=== PATIENT | male | born 1990 | race African-American/Black ===

== ENCOUNTER 2019-07-29 19:00 | Inpatient (IN) | payer OTHER ==
[2019-07-29] MEDS ORDERED: SODIUM CHLORIDE 0.9% 1,000 ML IV STA (19:28)
[2019-07-29 20:05] LABS: Anisocytosis Slight; Hypochromasia Marked; MCH 12.7 pg (25.0-35.0); MCHC 23.2 g/dL (31.0-37.0); MCV 54.9 fL (80.0-100.0); Mean Platelet Volume 10.3; Microcytosis Marked; Platelet Count 469 k/uL (150-450); RBC 4.01 m/uL (4.30-5.90); RDW 19.6 % (11.5-15.5)
[2019-07-29 20:07] LABS: ALT 9 U/L (4-49); AST 25 U/L (17-59); African American GFR (CKD) >90 (>60 ml/min/1.73 sqM); Albumin 4.2 g/dL (3.5-5.0); Alkaline Phosphatase 99 U/L (38-126); Amylase 36 U/L (30-110); Anion Gap 9 mmol/L; Blood Urea Nitrogen 17 mg/dL (9-20); Calcium 8.9 mg/dL (8.4-10.2); Carbon Dioxide 25 mmol/L (22-30); Chloride 100 mmol/L (98-107); Glucose 93 mg/dL (74-99); Non-African American GFR(CKD) >90 (>60 ml/min/1.73 sqM); Potassium 4.3 mmol/L (3.5-5.1); Sodium 134 mmol/L (137-145); Total Bilirubin 0.3 mg/dL (0.2-1.3); Total Protein 7.8 g/dL (6.3-8.2)
[2019-07-29 20:08] LABS: HGB 5.1 gm/dL (13.0-17.5)
[2019-07-29 20:17] LABS: Appearance,Urine Cloudy (Clear); Bilirubin,Urine Negative (Negative); Blood,Urine Large (Negative); Budding Yeast,Urine Many /hpf; Color,Urine Yellow; Glucose,Urine (UA) Negative (Negative); Ketones,Urine Negative (Negative); Leukocyte Esterase,Urine Large (Negative); Mucus,Urine Rare /hpf; Nitrite,Urine Negative (Negative); Protein,Urine 1+ (Negative); RBC,Urine >182 /hpf (0-5); Specific Gravity,Urine 1.019 (1.001-1.035); Urobilinogen,Urine <2.0 mg/dL (<2.0); WBC,Urine >182 /hpf (0-5)
--- NOTE | 2019-07-29 20:17 | CT ---
EXAMINATION TYPE: CT abdomen pelvis w con DATE OF EXAM: 07/29/2019 COMPARISON: None HISTORY: Right sided abdominal pain and urinary frequency. CT DLP: 701.5 mGycm Automated exposure control for dose reduction was used. CONTRAST: Performed with IV Contrast, patient injected with 100 mL of Isovue 300. Images were obtained from the diaphragm to the floor the pelvis. Lung bases are clear. There is no pleural effusion. Heart appears normal. Liver appears normal. Gallb ladder appears normal. Bile ducts are not dilated. Stomach appears intact. There is no pancreatic mas s. Spleen is enlarged and measures 13.5 cm. There is no adrenal mass. Kidneys show satisfactory contrast opacification. There is no hydronephrosi s. Ureters are not dilated. There is no retroperitoneal adenopathy. There is no inguinal hernia. Ther e is no free fluid in the pelvis. There is minimal urinary bladder wall thickening. There is a large right lower quadrant mass with mixed attenuation in the peritoneal cavity that measures 10.3 x 6.4 x 9 cm. The cecum is not well defined. Appendix is not well defined. There is no sign of a bowel obstru ction. Small bowel is not dilated. There is normal appearing gas and fecal material in the transverse colon and left colon and sigmoid colon. I see no free air in the peritoneal cavity. The complex right lower quadrant mass contains air and th is could be within inflamed bowel loops. Lumbar vertebra have normal alignment. Posterior elements are intact. Disc spaces are normal. Bony pe lvis is intact. IMPRESSION: Large inflammatory-appearing complex mass in the right lower quadrant. The mass probably contains inf lamed loops of distal ileum and the cecum. Crohn's disease is possible. Appendicitis with rupture and abscess also not excluded. Mild splenomegaly.
[2019-07-29 20:27] LABS: Anisocytosis (M) Present; Basophils # (M) 0.19 k/uL (0-0.2); Eosinophils # (M) 0.09 k/uL (0-0.7); Lymphocytes # (M) 2.07 k/uL (1.0-4.8); Monocytes # (M) 0.28 k/uL (0-1.0); Neutrophils # (M) 6.86 k/uL (1.3-7.7); Neutrophils % (M) 73 %; Nucleated Red Blood Cells 1 /100 WBC (0-0); Poikilocytosis (M) Present; Polychromasia Present; Total Cells Counted 200; WBC 9.4 k/uL (3.8-10.6)
[2019-07-29 20:28] LABS: Hypochromasia (M) Present; Ovalocytes Present; Tear Drop Cells Present
--- NOTE | 2019-07-29 20:34 | ED ---
Abdominal Pain HPI - General Source: patient Mode of arrival: ambulatory Limitations: no limitations <Milagros Sauceda - Last Filed: 07/29/19 21:30> <Kyree Aceves - Last Filed: 07/29/19 21:49> - General Chief Complaint: Abdominal Pain Stated Complaint: UTI/revisit Time Seen by Provider: 07/29/19 19:13 - History of Present Illness Initial Comments: Patient is a 29-year-old male presenting to the emergency Department with complaints of abdominal pain and a possible UTI. Patient states he was treated for a UTI approximately 3-4 weeks ago and finished a 10 day course of Bactrim. Patient states he was also tested for STDs which were all negative. He has not been sexually active in 2 months. Patient states he was having urinary frequency as well as penile discharge at that time. Patient states the symptoms have improved but he continues to have right lower quadrant pain as well as urinary frequency, urgency and penile discharge. Patient denies having a fever, chills, nausea, vomiting. He states his pain has been controlled and is minimal at this time. Patient denies any history of abdominal surgeries. He takes no medications. He states he has been trying to eat a very clean diet, no sugar or pop, junk foods. He states this is not improving his symptoms. Patient denies having chest pain, shortness of breath, cough. He has no other complaints at this time. Upon arrival to the ER, patient is afebrile, tachycardia at 106, rest of vitals normal. (Milagros Sauceda) - Related Data Home Medications Medication Instructions Recorded Confirmed No Known Home Medications 07/29/19 07/29/19 Allergies Allergy/AdvReac Type Severity Reaction Status Date / Time No Known Allergies Allergy Verified 07/29/19 20:49 Review of Systems ROS Other: All systems not noted in ROS Statement are negative. <Milagros Sauceda - Last Filed: 07/29/19 21:30> ROS Other: All systems not noted in ROS Statement are negative. <Kyree Aceves - Last Filed: 07/29/19 21:49> ROS Statement: Those systems with pertinent positive or pertinent negative responses have been documented in the HPI. Past Medical History Past Medical History: No Reported History History of Any Multi-Drug Resistant Organisms: None Reported Past Surgical History: No Surgical Hx Reported Past Psychological History: No Psychological Hx Reported Smoking Status: Never smoker Past Alcohol Use History: None Reported Past Drug Use History: Marijuana <Milagros Sauceda - Last Filed: 07/29/19 21:30> General Exam Limitations: no limitations Rectal exam: Present: normal inspection, normal rectal tone, heme (-) stool <Milagros Sauceda - Last Filed: 07/29/19 21:30> - General Exam Comments Initial Comments: GENERAL: Patient looks pale, diaphoretic, in no acute distress. HEAD: Atraumatic, normocephalic. EYES: Pupils equal round and reactive to light, extraocular movements intact, sclera anicteric, conjunctiva are normal. ENT: TMs normal, nares patent, oropharynx clear without exudates. Moist mucous membranes. NECK: Normal range of motion, supple without lymphadenopathy or JVD. LUNGS: Breath sounds clear to auscultation bilaterally and equal. No wheezes rales or rhonchi. HEART: Tachycardia rate and rhythm without murmurs, rubs or gallops. ABDOMEN: Tenderness in the right lower quadrant of the abdomen. There is a hard mass felt in the same area which extends down towards the right groin area. No other significant pain. Normoactive bowel sounds. No guarding, no rebound. : Normal external exam. EXTREMITIES: Normal range of motion, no pitting or edema. No clubbing or cyanosis. NEUROLOGICAL: Normal speech, normal gait. PSYCH: Normal mood, normal affect. SKIN: Warm, Dry, normal turgor, no rashes or lesions noted. (Becky Saucedashannon Ladd) Course <Kyree Aceves - Last Filed: 07/29/19 21:49> Vital Signs 07/29/19 07/29/19 07/29/19 19:07 20:19 20:57 Temperature 98.1 F 98.6 F 98.7 F Pulse Rate 106 H 82 95 Respiratory 18 15 14 Rate Blood Pressure 124/73 106/65 118/53 O2 Sat by Pulse 100 100 100 Oximetry - Reevaluation(s) Reevaluation #1: 07/29/19 21:23 PA supervision: I personally did evaluate this case he did present with complaints of abdominal pain is appear to have a mass in the pelvis lower abdomen area see the CAT scan. He was anemic. Patient will be admitted to Dr. Marcial (Kyree Aceves) Reevaluation #2: 07/29/19 21:49 Due to the patient's hemoglobin dropped from 5.1-4.7 the patient will be admitted to ICU for observation while getting transfused. I did discuss case with Dr. Biswas. (Kyree Aceves) Medical Decision Making - Lab Data Result diagrams: 07/29/19 20:34 07/29/19 19:46 <Milagros Sauceda - Last Filed: 07/29/19 21:30> - Lab Data Result diagrams: 07/29/19 20:34 07/29/19 19:46 <Kyree Aceves - Last Filed: 07/29/19 21:49> - Medical Decision Making Patient is a 29-year-old male here for right lower quadrant pain as well as pain about discharge, dysuria, frequency x 3 weeks. He completed a course of bactrim 3 weeks ago. Patient arrived tachycardia, afebrile. On exam patient is pale, diaphoretic, right lower quadrant pain with a hard mass felt in same area, minimal pain. Lab work revealed a hemoglobin of 5.1, repeat was 4.7. (No previous to compare.) White count is normal, CMP is normal, lactic acid 0.7. Urine shows significant amounts of blood and WBC clumps. Stool occult is negative. CT of the abdomen shows a large inflammatory, complex mass in the right lower quadrant. Mass probably contains inflamed loops of distal ileum and cecum. Crohn's disease is possible as well as possible appendicitis with rupture and abscess. Patient will be transfused with 2 units of blood as well as started on Rocephin. Blood cultures are pending. Patient will be admitted under Dr. Swartz who accepts the patient. Case discussed with Dr. Aceves. (Milagros Sauceda) - Lab Data Lab Results 07/29/19 07/29/19 07/29/19 Range/Units 19:46 19:46 19:46 WBC 9.4 (3.8-10.6) k/uL RBC 4.01 L (4.30-5.90) m/uL Hgb 5.1 L* (13.0-17.5) gm/dL Hct 22.0 L (39.0-53.0) % MCV 54.9 L (80.0-100.0) fL MCH 12.7 L (25.0-35.0) pg MCHC 23.2 L (31.0-37.0) g/dL RDW 19.6 H (11.5-15.5) % Plt Count 469 H (150-450) k/uL Neutrophils % % Neutrophils % (Manual) 73 % Lymphocytes % % Lymphocytes % (Manual) 22 % Monocytes % % Monocytes % (Manual) 3 % Eosinophils % % Eosinophils % (Manual) 1 % Basophils % % Basophils % (Manual) 2 % Neutrophils # (1.3-7.7) k/uL Neutrophils # (Manual) 6.86 (1.3-7.7) k/uL Lymphocytes # (1.0-4.8) k/uL Lymphocytes # (Manual) 2.07 (1.0-4.8) k/uL Monocytes # (0-1.0) k/uL Monocytes # (Manual) 0.28 (0-1.0) k/uL Eosinophils # (0-0.7) k/uL Eosinophils # (Manual) 0.09 (0-0.7) k/uL Basophils # (0-0.2) k/uL Basophils # (Manual) 0.19 (0-0.2) k/uL Nucleated RBCs 1 H (0-0) /100 WBC Manual Slide Review Performed Polychromasia Present Hypochromasia Marked Hypochromasia (manual) Present Poikilocytosis (manual Present Anisocytosis Slight Anisocytosis (manual) Present Microcytosis Marked Tear Drop Cells Present Ovalocytes Present Sodium 134 L (137-145) mmol/L Potassium 4.3 (3.5-5.1) mmol/L Chloride 100 (98-107) mmol/L Carbon Dioxide 25 (22-30) mmol/L Anion Gap 9 mmol/L BUN 17 (9-20) mg/dL Creatinine 0.90 (0.66-1.25) mg/dL Est GFR (CKD-EPI)AfAm >90 (>60 ml/min/1.73 sqM) Est GFR (CKD-EPI)NonAf >90 (>60 ml/min/1.73 sqM) Glucose 93 (74-99) mg/dL Plasma Lactic Acid Mahesh (0.7-2.0) mmol/L Calcium 8.9 (8.4-10.2) mg/dL Total Bilirubin 0.3 (0.2-1.3) mg/dL AST 25 (17-59) U/L ALT 9 (4-49) U/L Alkaline Phosphatase 99 (38-126) U/L Total Protein 7.8 (6.3-8.2) g/dL Albumin 4.2 (3.5-5.0) g/dL Amylase 36 (30-110) U/L Lipase 40 (23-300) U/L Urine Color Yellow Urine Appearance Cloudy (Clear) Urine pH 6.0 (5.0-8.0) Ur Specific [place] 1.019 (1.001-1.035) Urine Protein 1+ H (Negative) Urine Glucose (UA) Negative (Negative) Urine Ketones Negative (Negative) Urine Blood Large H (Negative) Urine Nitrite Negative (Negative) Urine Bilirubin Negative (Negative) Urine Urobilinogen <2.0 (<2.0) mg/dL Ur Leukocyte Esterase Large H (Negative) Urine RBC >182 H (0-5) /hpf Urine WBC >182 H (0-5) /hpf Urine WBC Clumps Many H (None) /hpf Urine Mucus Rare H (None) /hpf Urine Yeast (Budding) Many H (None) /hpf Stool Occult Blood (Negative) Blood Type Blood Type Confirm Blood Type Recheck Bld Type Recheck Status Antibody Screen Crossmatch Spec Expiration Date 07/29/19 07/29/19 07/29/19 Range/Units 19:46 19:46 20:34 WBC (3.8-10.6) k/uL RBC (4.30-5.90) m/uL Hgb (13.0-17.5) gm/dL Hct (39.0-53.0) % MCV (80.0-100.0) fL MCH (25.0-35.0) pg MCHC (31.0-37.0) g/dL RDW (11.5-15.5) % Plt Count (150-450) k/uL Neutrophils % % Neutrophils % (Manual) % Lymphocytes % % Lymphocytes % (Manual) % Monocytes % % Monocytes % (Manual) % Eosinophils % % Eosinophils % (Manual) % Basophils % % Basophils % (Manual) % Neutrophils # (1.3-7.7) k/uL Neutrophils # (Manual) (1.3-7.7) k/uL Lymphocytes # (1.0-4.8) k/uL Lymphocytes # (Manual) (1.0-4.8) k/uL Monocytes # (0-1.0) k/uL Monocytes # (Manual) (0-1.0) k/uL Eosinophils # (0-0.7) k/uL Eosinophils # (Manual) (0-0.7) k/uL Basophils # (0-0.2) k/uL Basophils # (Manual) (0-0.2) k/uL Nucleated RBCs (0-0) /100 WBC Manual Slide Review Polychromasia Hypochromasia Hypochromasia (manual) Poikilocytosis (manual Anisocytosis Anisocytosis (manual) Microcytosis Tear Drop Cells Ovalocytes Sodium (137-145) mmol/L Potassium (3.5-5.1) mmol/L Chloride (98-107) mmol/L Carbon Dioxide (22-30) mmol/L Anion Gap mmol/L BUN (9-20) mg/dL Creatinine (0.66-1.25) mg/dL Est GFR (CKD-EPI)AfAm (>60 ml/min/1.73 sqM) Est GFR (CKD-EPI)NonAf (>60 ml/min/1.73 sqM) Glucose (74-99) mg/dL Plasma Lactic Acid Mahesh 0.7 (0.7-2.0) mmol/L Calcium (8.4-10.2) mg/dL Total Bilirubin (0.2-1.3) mg/dL AST (17-59) U/L ALT (4-49) U/L Alkaline Phosphatase (38-126) U/L Total Protein (6.3-8.2) g/dL Albumin (3.5-5.0) g/dL Amylase (30-110) U/L Lipase (23-300) U/L Urine Color Urine Appearance (Clear) Urine pH (5.0-8.0) Ur Specific [place] (1.001-1.035) Urine Protein (Negative) Urine Glucose (UA) (Negative) Urine Ketones (Negative) Urine Blood (Negative) Urine Nitrite (Negative) Urine Bilirubin (Negative) Urine Urobilinogen (<2.0) mg/dL Ur Leukocyte Esterase (Negative) Urine RBC (0-5) /hpf Urine WBC (0-5) /hpf Urine WBC Clumps (None) /hpf Urine Mucus (None) /hpf Urine Yeast (Budding) (None) /hpf Stool Occult Blood (Negative) Blood Type O Positive Blood Type Confirm O Positive Blood Type Recheck No Previous Record Bld Type Recheck Status CABO Indicated Antibody Screen NEGATIVE Crossmatch See Detail Spec Expiration Date 08/01/2019 - 233307/29/19 07/29/19 Range/Units 20:34 20:48 WBC 8.2 (3.8-10.6) k/uL RBC 3.73 L (4.30-5.90) m/uL Hgb 4.7 L* (13.0-17.5) gm/dL Hct 20.8 L (39.0-53.0) % MCV 55.6 L (80.0-100.0) fL MCH 12.5 L (25.0-35.0) pg MCHC 22.6 L (31.0-37.0) g/dL RDW 19.6 H (11.5-15.5) % Plt Count 373 (150-450) k/uL Neutrophils % 67 % Neutrophils % (Manual) % Lymphocytes % 24 % Lymphocytes % (Manual) % Monocytes % 5 % Monocytes % (Manual) % Eosinophils % 1 % Eosinophils % (Manual) % Basophils % 1 % Basophils % (Manual) % Neutrophils # 5.5 (1.3-7.7) k/uL Neutrophils # (Manual) (1.3-7.7) k/uL Lymphocytes # 1.9 (1.0-4.8) k/uL Lymphocytes # (Manual) (1.0-4.8) k/uL Monocytes # 0.4 (0-1.0) k/uL Monocytes # (Manual) (0-1.0) k/uL Eosinophils # 0.1 (0-0.7) k/uL Eosinophils # (Manual) (0-0.7) k/uL Basophils # 0.1 (0-0.2) k/uL Basophils # (Manual) (0-0.2) k/uL Nucleated RBCs (0-0) /100 WBC Manual Slide Review Polychromasia Hypochromasia Marked Hypochromasia (manual) Poikilocytosis (manual Anisocytosis Slight Anisocytosis (manual) Microcytosis Marked Tear Drop Cells Ovalocytes Sodium (137-145) mmol/L Potassium (3.5-5.1) mmol/L Chloride (98-107) mmol/L Carbon Dioxide (22-30) mmol/L Anion Gap mmol/L BUN (9-20) mg/dL Creatinine (0.66-1.25) mg/dL Est GFR (CKD-EPI)AfAm (>60 ml/min/1.73 sqM) Est GFR (CKD-EPI)NonAf (>60 ml/min/1.73 sqM) Glucose (74-99) mg/dL Plasma Lactic Acid Mahesh (0.7-2.0) mmol/L Calcium (8.4-10.2) mg/dL Total Bilirubin (0.2-1.3) mg/dL AST (17-59) U/L ALT (4-49) U/L Alkaline Phosphatase (38-126) U/L Total Protein (6.3-8.2) g/dL Albumin (3.5-5.0) g/dL Amylase (30-110) U/L Lipase (23-300) U/L Urine Color Urine Appearance (Clear) Urine pH (5.0-8.0) Ur Specific [place] (1.001-1.035) Urine Protein (Negative) Urine Glucose (UA) (Negative) Urine Ketones (Negative) Urine Blood (Negative) Urine Nitrite (Negative) Urine Bilirubin (Negative) Urine Urobilinogen (<2.0) mg/dL Ur Leukocyte Esterase (Negative) Urine RBC (0-5) /hpf Urine WBC (0-5) /hpf Urine WBC Clumps (None) /hpf Urine Mucus (None) /hpf Urine Yeast (Budding) (None) /hpf Stool Occult Blood Negative (Negative) Blood Type Blood Type Confirm Blood Type Recheck Bld Type Recheck Status Antibody Screen Crossmatch Spec Expiration Date Disposition Is patient prescribed a controlled substance at d/c from ED?: No Decision Date: 07/29/19 Decision Time: 21:09 <Milagros Sauceda - Last Filed: 07/29/19 21:30> <Kyree Aceves - Last Filed: 07/29/19 21:49> Clinical Impression: Acute anemia, Right lower quadrant abdominal mass, UTI (urinary tract infection) Disposition: ADMITTED IP TO THIS HOSP Condition: Good Referrals: None,Stated [Primary Care Provider] - 1-2 days
[2019-07-29 20:54] LABS: Anisocytosis Slight; Basophils # (A) 0.1 k/uL (0-0.2); Basophils % (A) 1 %; Eosinophils # (A) 0.1 k/uL (0-0.7); Eosinophils % (A) 1 %; HCT 20.8 % (39.0-53.0); Hypochromasia Marked; Lymphocytes # (A) 1.9 k/uL (1.0-4.8); Lymphocytes % (A) 24 %; MCH 12.5 pg (25.0-35.0); MCHC 22.6 g/dL (31.0-37.0); MCV 55.6 fL (80.0-100.0); Mean Platelet Volume 8.1; Microcytosis Marked; Monocytes # (A) 0.4 k/uL (0-1.0); Monocytes % (A) 5 %; Neutrophils # (A) 5.5 k/uL (1.3-7.7); Neutrophils % (A) 67 %; Platelet Count 373 k/uL (150-450); RBC 3.73 m/uL (4.30-5.90); RDW 19.6 % (11.5-15.5); WBC 8.2 k/uL (3.8-10.6)
[2019-07-29 21:01] LABS: HGB 4.7 gm/dL (13.0-17.5)
[2019-07-29] MEDS ORDERED: NALOXONE 0.4 MG/ML 1 ML VIAL IV PRN (21:05)
[2019-07-29] MEDS ORDERED: ONDANSETRON 4 MG/2 ML VIAL IVP PRN (21:05)
[2019-07-29] MEDS ORDERED: ACETAMINOPHEN TAB 325 MG TAB PO PRN (21:05)
[2019-07-29] MEDS: SODIUM CHLORIDE 0.9% 1,000 ML IV SCH (22:54)
[2019-07-29 23:38] LABS: Glucose,Whole Blood 120 mg/dL (75-99)
[2019-07-30 06:00] LABS: Anisocytosis Marked; Basophils % (A) 1 %; Eosinophils # (A) 0.1 k/uL (0-0.7); Eosinophils % (A) 1 %; HCT 26.3 % (39.0-53.0); Hypochromasia Marked; Lymphocytes # (A) 1.4 k/uL (1.0-4.8); Lymphocytes % (A) 19 %; MCH 15.8 pg (25.0-35.0); MCHC 25.9 g/dL (31.0-37.0); Mean Platelet Volume 10.1; Microcytosis Marked; Monocytes # (A) 0.3 k/uL (0-1.0); Monocytes % (A) 4 %; Neutrophils # (A) 5.2 k/uL (1.3-7.7); Neutrophils % (A) 73 %; Platelet Count 406 k/uL (150-450); Poikilocytosis Marked; RBC 4.31 m/uL (4.30-5.90); WBC 7.2 k/uL (3.8-10.6)
[2019-07-30 06:05] LABS: HGB 6.8 gm/dL (13.0-17.5)
[2019-07-30 06:06] LABS: RDW 26.9 % (11.5-15.5)
[2019-07-30 06:17] LABS: African American GFR (CKD) >90 (>60 ml/min/1.73 sqM); Anion Gap 7 mmol/L; Blood Urea Nitrogen 13 mg/dL (9-20); Calcium 8.6 mg/dL (8.4-10.2); Carbon Dioxide 23 mmol/L (22-30); Chloride 105 mmol/L (98-107); Glucose 86 mg/dL (74-99); Non-African American GFR(CKD) >90 (>60 ml/min/1.73 sqM); Potassium 4.3 mmol/L (3.5-5.1); Sodium 135 mmol/L (137-145)
[2019-07-30] MEDS ORDERED: SODIUM FERRIC GLUCONAT-SUCROSE 125 MG in SODIUM CHLORIDE 0.9% 100 ML IVPB SCH (09:00)
--- NOTE | 2019-07-30 10:18 | P.CNPUL ---
History of Present Illness Consult date: 07/30/19 Chief complaint: Abdominal pain and severe anemia History of present illness: A 29-year-old -[place] male patient who came into the hospital yesterday because of abdominal pain and abnormal uterine production. The patient has been having abdominal pain since May 2019. He had a vague right lower quadrant pain without any fever or nausea vomiting or emesis. His pain is been fluctuating in severity yet never got to the point where it was severe. He had sick medical attention and seen different clinics where he was suspected to have urinary tract infection he was given Bactrim and on another occasion he was suspected to have STD yet the workup had been negative. The patient reports some mucousy white material a is on and off along with some occasional blood. Denies having any melanotic stools. No bright red blood per rectum. No urination of any gas or bubbles in the urine. No flank pain. No fever. No history of any inflammatory bowel disease. No previous history of appendicitis. The patient came into the emergency department he was quite weak. His hemoglobin was down to 4.7. He received a total of 2 units of packed RBC and his hemoglobin is up to 6.8. His white cell count is at 7.2. The patient has latent count of 469. His UA is abnormal with elevated white cell counts and elevated RBC. Culture is still pending for now. Occult stool is negative for blood. CAT scan of the abdomen was done and the patient was found to have a large right lower quadrant mass with mixed attenuation in the peritoneal cavity and the areas measuring around 10.3 x 6.4 x 9 cm in size. The cecum was not well visualized. Appendix is not well defined. There is no signs of any bowel obstruction. The right lower quadrant mass contains air and this could include also inflamed bowel. Note that this was done with IV contrast only. On examination, the patient has a palpable mass in the right lower quadrant. The a rajiv is slightly tender on direct palpation. The patient likely has an inflamed bowel loop of the distal ileum or the cecum or the appendix that has ruptured and has formed an abscess with possible colovesicular fistula. He does have some mild splenomegaly. He is alert and awake and following commands and answering questions. Is a nonsmoker. 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 Otherwise his been a healthy 29-year-old Marleen male patient in general surgery consultation has been obtained. Review of Systems Constitutional: Reports fatigue, Reports weakness Eyes: denies as per HPI, denies blurred vision, denies bulging eye, denies d ecreased vision, denies diplopia, denies discharge, denies dry eye, denies irritation, denies itching, denies pain, denies photophobia, denies loss of peripheral vision, denies loss of vision, denies tunnel vision/blind spots Ears: deny: decreased hearing, ear discharge, earache, tinnitus Ears, nose, mouth and throat: Reports as per HPI Breasts: absent: as per HPI, gynecomastia Cardiovascular: Reports as per HPI Respiratory: Reports as per HPI Gastrointestinal: Reports abdominal pain Genitourinary: Reports as per HPI (Change in the color of the urine where he was producing mucoid possibly purulent urine), Reports hematuria Musculoskeletal: Reports as per HPI Musculoskeletal: absent: ankle pain, ankle stiffness, ankle swelling Integumentary: Reports as per HPI Neurological: Reports as per HPI Psychiatric: Reports as per HPI Endocrine: Reports as per HPI Hematologic/Lymphatic: Reports as per HPI Allergic/Immunologic: Reports as per HPI Past Medical History Past Medical History: No Reported History History of Any Multi-Drug Resistant Organisms: None Reported Past Surgical History: No Surgical Hx Reported Past Psychological History: No Psychological Hx Reported Smoking Status: Never smoker Past Alcohol Use History: None Reported Past Drug Use History: Marijuana Medications and Allergies Home Medications Medication Instructions Recorded Confirmed Type No Known Home Medications 07/29/19 07/29/19 History Allergies Allergy/AdvReac Type Severity Reaction Status Date / Time No Known Allergies Allergy Verified 07/29/19 20:49 Physical Exam Vitals: Vital Signs Temp Pulse Pulse Resp BP BP Pulse Ox 07/30/19 10:00 73 17 113/75 100 07/30/19 09:00 84 12 117/77 100 07/30/19 08:00 98.6 F 84 23 117/77 100 07/30/19 07:00 75 16 106/64 07/30/19 06:00 84 17 111/62 07/30/19 05:00 78 12 106/64 07/30/19 04:38 98.3 F 80 80 H 114/66 07/30/19 04:00 98.3 F 77 22 107/70 100 07/30/19 03:30 73 17 111/59 07/30/19 03:00 81 19 105/62 07/30/19 02:30 98.1 F 85 12 109/68 100 07/30/19 02:10 80 16 111/67 07/30/19 02:00 98.5 F 87 16 116/73 100 07/30/19 01:50 98.3 F 78 11 L 116/73 100 07/30/19 01:45 98.3 F 84 16 117/75 100 07/30/19 01:31 98.3 F 87 18 117/75 100 07/29/19 23:28 98.3 F 86 17 126/71 100 07/29/19 23:15 98.5 F 90 15 118/70 07/29/19 22:58 98.5 F 88 14 123/70 07/29/19 22:48 98.6 F 98 14 127/72 07/29/19 22:46 98.6 F 98 14 126/79 100 07/29/19 22:01 98.3 F 88 14 126/76 100 07/29/19 20:57 98.7 F 95 14 118/53 100 07/29/19 20:19 98.6 F 82 15 106/65 100 07/29/19 19:07 98.1 F 106 H 18 124/73 100 Intake and Output 07/29/19 07/30/19 07/30/19 22:59 06:59 14:59 Intake Total 0 1845 225 Output Total 400 300 Balance 0 1445 -75 Intake: Intake, IV Titration 525 225 Amount Sodium Chloride 0.9% 1, 525 225 000 ml @ 75 mls/hr IV . [id number] [facility] Rx#:[id number] Blood Product 0 1320 As-1 Unit 0 310 [id number] Rc As-1 Unit 310 [id number] Output: Urine 400 300 Other: Voiding Method Toilet Urinal Urinal Weight 73.482 kg 76 kg The patient appeared well nourished and normally developed. Vital signs as docu mented. Head exam is unremarkable. No scleral icterus or corneal arcus noted. Neck is without jugular venous distension, thyromegaly, or carotid bruits. Carotid upstrokes are brisk bilaterally. Lungs are clear to auscultation and percussion. Cardiac exam reveals the PMI to be normally sized and situated. Rhythm is regular. First and second heart sounds normal. No murmurs, rubs or gallops. Abdominal exam reveals a palpable masslike collection in the right lower quadrant area. The area is very well-defined. There is direct tenderness. No rebound tenderness. No guarding. No peritoneal signs. No ascites. No organomegaly. Bowel sounds are hypoactive at the present.. Extremities are nonedematous and both femoral and pedal pulses are normal.Examination of the skin revealed no evidence of significant rashes, suspicious appearing nevi or other concerning lesions. Neurologically the patie nt is awake and alert and there is no focal neurological deficits. Results - Laboratory Findings CBC and BMP: 07/30/19 05:32 07/30/19 05:32 Abnormal lab findings: Abnormal Labs 07/29/19 07/29/19 07/29/19 19:46 19:46 19:46 RBC 4.01 L Hgb 5.1 L* Hct 22.0 L MCV 54.9 L MCH 12.7 L MCHC 23.2 L RDW 19.6 H Plt Count 469 H Nucleated RBCs 1 H Sodium 134 L POC Glucose (mg/dL) Urine Protein 1+ H Urine Blood Large H Ur Leukocyte Esterase Large H Urine RBC >182 H Urine WBC >182 H Urine WBC Clumps Many H Urine Mucus Rare H Urine Yeast (Budding) Many H Crossmatch 07/29/19 07/29/19 07/29/19 20:34 20:34 23:36 RBC 3.73 L Hgb 4.7 L* Hct 20.8 L MCV 55.6 L MCH 12.5 L MCHC 22.6 L RDW 19.6 H Plt Count Nucleated RBCs Sodium POC Glucose (mg/dL) 120 H Urine Protein Urine Blood Ur Leukocyte Esterase Urine RBC Urine WBC Urine WBC Clumps Urine Mucus Urine Yeast (Budding) Crossmatch See Detail 07/30/19 07/30/19 05:32 05:32 RBC Hgb 6.8 L* D Hct 26.3 L MCV 61.0 L D MCH 15.8 L MCHC 25.9 L RDW 26.9 H Plt Count Nucleated RBCs Sodium 135 L POC Glucose (mg/dL) Urine Protein Urine Blood Ur Leukocyte Esterase Urine RBC Urine WBC Urine WBC Clumps Urine Mucus Urine Yeast (Budding) Crossmatch - Diagnostic Findings Chest x-ray: image reviewed Assessment and Plan Plan: 1 large right lower quadrant inflammatory complex mass with secondary abdominal pain and abnormal urine characteristics including urination of purulent material and some occasional hematuria. As such, I am considering the possibility of a ruptured appendicitis with abscess formation. Inflammatory bowel disease with secondary complications felt to be less likely. Nevertheless, there is a high concern of a colovesicular fistula based on the above-mentioned presentation. 2 abnormal urinalysis and urination with urine characteristics. Consider colovesicular fistula. 3 abdominal pain secondary to above 4 severe anemia received a total of 2 units of packed RBC, likely subacute versus chronic. Hemoglobin is up to 6.8. The patient received a total of 2 un its of packed RBC. 5 reactive thrombocytosis Plan Check blood cultures Check urine cultures Put the patient IV Zosyn General surgery consultation Neurology consultation May need a repeat CAT scan, contrast enhanced looking for any fistulization Received a total of 2 units of packed RBC and will give another unit Check iron studies and replace with IV iron accordingly Patient is hemodynamically stable. Continue the normal saline at the rate of 75 mL an hour. We'll keep the patient ICU for 24 hours for monitoring. Awaiting consultation with above-mentioned specialties.
--- NOTE | 2019-07-30 10:23 | P.GSCN ---
History of Present Illness Consult date: 07/30/19 Reason for Consult: UTI Requesting physician: Joel Biswas History of present illness: The patient is a 29-year-old -[place] male with an unremarkable urologic history. Beginning in May,, he began to experience urinary frequency and urgency. He feels that he is unable to empty his bladder. He was treated with Bactrim, and his symptoms improved. He denies dysuria. He does report purulent urethral drainage, as well as hematuria following activity. He believes he may have had a single episode of pneumaturia. He denies fecaluria. Review of Systems - Constitutional Denies chills, Denies fever - Cardiovascular Denies chest pain - Respiratory Denies dyspnea - Gastrointestinal Denies nausea, Denies vomiting - Genitourinary Reports urinary frequency Past Medical History Past Medical History: No Reported History History of Any Multi-Drug Resistant Organisms: None Reported Past Surgical History: No Surgical Hx Reported Past Psychological History: No Psychological Hx Reported Smoking Status: Never smoker Past Alcohol Use History: None Reported Past Drug Use History: Marijuana Medications and Allergies Home Medications Medication Instructions Recorded Confirmed Type No Known Home Medications 07/29/19 07/29/19 History Allergies Allergy/AdvReac Type Severity Reaction Status Date / Time No Known Allergies Allergy Verified 07/29/19 20:49 Surgical - Exam Vital Signs Temp Pulse Resp BP Pulse Ox 98.1 F 106 H 18 124/73 100 07/29/19 19:07 07/29/19 19:07 07/29/19 19:07 07/29/19 19:07 07/29/19 19:07 - General well developed, well nourished, no distress - Respiratory normal respiratory effort - Abdomen Soft, flat, non-distended. A right lower quadrant mass is palpable, which is mildly tender to palpation. - Genitourinary normal penis with no external lesions, testicles non-tender - Psychiatric oriented to time, oriented to person, oriented to place, speech is normal, memory intact Results - Labs 07/30/19 05:32 07/30/19 05:32 Abnormal Lab Results - Last 24 Hours (Table) 07/29/19 07/29/19 07/29/19 Range/Units 19:46 19:46 19:46 RBC 4.01 L (4.30-5.90) m/uL Hgb 5.1 L* (13.0-17.5) gm/dL Hct 22.0 L (39.0-53.0) % MCV 54.9 L (80.0-100.0) fL MCH 12.7 L (25.0-35.0) pg MCHC 23.2 L (31.0-37.0) g/dL RDW 19.6 H (11.5-15.5) % Plt Count 469 H (150-450) k/uL Nucleated RBCs 1 H (0-0) /100 WBC Sodium 134 L (137-145) mmol/L POC Glucose (mg/dL) (75-99) mg/dL Urine Protein 1+ H (Negative) Urine Blood Large H (Negative) Ur Leukocyte Esterase Large H (Negative) Urine RBC >182 H (0-5) /hpf Urine WBC >182 H (0-5) /hpf Urine WBC Clumps Many H (None) /hpf Urine Mucus Rare H (None) /hpf Urine Yeast (Budding) Many H (None) /hpf Crossmatch 07/29/19 07/29/19 07/29/19 Range/Units 20:34 20:34 23:36 RBC 3.73 L (4.30-5.90) m/uL Hgb 4.7 L* (13.0-17.5) gm/dL Hct 20.8 L (39.0-53.0) % MCV 55.6 L (80.0-100.0) fL MCH 12.5 L (25.0-35.0) pg MCHC 22.6 L (31.0-37.0) g/dL RDW 19.6 H (11.5-15.5) % Plt Count (150-450) k/uL Nucleated RBCs (0-0) /100 WBC Sodium (137-145) mmol/L POC Glucose (mg/dL) 120 H (75-99) mg/dL Urine Protein (Negative) Urine Blood (Negative) Ur Leukocyte Esterase (Negative) Urine RBC (0-5) /hpf Urine WBC (0-5) /hpf Urine WBC Clumps (None) /hpf Urine Mucus (None) /hpf Urine Yeast (Budding) (None) /hpf Crossmatch See Detail 07/30/19 07/30/19 Range/Units 05:32 05:32 RBC (4.30-5.90) m/uL Hgb 6.8 L* D (13.0-17.5) gm/dL Hct 26.3 L (39.0-53.0) % MCV 61.0 L D (80.0-100.0) fL MCH 15.8 L (25.0-35.0) pg MCHC 25.9 L (31.0-37.0) g/dL RDW 26.9 H (11.5-15.5) % Plt Count (150-450) k/uL Nucleated RBCs (0-0) /100 WBC Sodium 135 L (137-145) mmol/L POC Glucose (mg/dL) (75-99) mg/dL Urine Protein (Negative) Urine Blood (Negative) Ur Leukocyte Esterase (Negative) Urine RBC (0-5) /hpf Urine WBC (0-5) /hpf Urine WBC Clumps (None) /hpf Urine Mucus (None) /hpf Urine Yeast (Budding) (None) /hpf Crossmatch Microbiology - Last 24 Hours (Table) 07/29/19 19:46 Urine Culture - Preliminary Urine,Voided Diabetes panel 07/29/19 07/30/19 Range/Units 19:46 05:32 Sodium 134 L 135 L (137-145) mmol/L Potassium 4.3 4.3 (3.5-5.1) mmol/L Chloride 100 105 (98-107) mmol/L Carbon Dioxide 25 23 (22-30) mmol/L BUN 17 13 (9-20) mg/dL Creatinine 0.90 0.70 (0.66-1.25) mg/dL Glucose 93 86 (74-99) mg/dL Calcium 8.9 8.6 (8.4-10.2) mg/dL AST 25 (17-59) U/L ALT 9 (4-49) U/L Alkaline Phosphatase 99 (38-126) U/L Total Protein 7.8 (6.3-8.2) g/dL Albumin 4.2 (3.5-5.0) g/dL Calcium panel 07/29/19 07/30/19 Range/Units 19:46 05:32 Calcium 8.9 8.6 (8.4-10.2) mg/dL Albumin 4.2 (3.5-5.0) g/dL Pituitary panel 07/29/19 07/30/19 Range/Units 19:46 05:32 Sodium 134 L 135 L (137-145) mmol/L Potassium 4.3 4.3 (3.5-5.1) mmol/L Chloride 100 105 (98-107) mmol/L Carbon Dioxide 25 23 (22-30) mmol/L BUN 17 13 (9-20) mg/dL Creatinine 0.90 0.70 (0.66-1.25) mg/dL Glucose 93 86 (74-99) mg/dL Calcium 8.9 8.6 (8.4-10.2) mg/dL Adrenal panel 07/29/19 05 Range/Units 19:46 05:32 Sodium 134 L 135 L (137-145) mmol/L Potassium 4.3 4.3 (3.5-5.1) mmol/L Chloride 100 105 (98-107) mmol/L Carbon Dioxide 25 23 (22-30) mmol/L BUN 17 13 (9-20) mg/dL Creatinine 0.90 0.70 (0.66-1.25) mg/dL Glucose 93 86 (74-99) mg/dL Calcium 8.9 8.6 (8.4-10.2) mg/dL Total Bilirubin 0.3 (0.2-1.3) mg/dL AST 25 (17-59) U/L ALT 9 (4-49) U/L Alkaline Phosphatase 99 (38-126) U/L Total Protein 7.8 (6.3-8.2) g/dL Albumin 4.2 (3.5-5.0) g/dL - Imaging CT scan - abdomen: report reviewed, image reviewed CT scan - pelvis: report reviewed, image reviewed Assessment and Plan (1) UTI (urinary tract infection) Current Visit: Yes Status: Acute Code(s): N39.0 - URINARY TRACT INFECTION, SITE NOT SPECIFIED SNOMED Code(s): 55099868 Plan: The patient's symptoms are suggestive of a UTI, and urinalysis is consistent with this. A urine culture is pending. I reviewed the CT scan. The lack of air within the urinary bladder argues against an enterovesical fistula. The presence of inflammation immediately adjacent to the bladder can cause symptoms and findings suggestive of cystitis. The patient will likely require surgical exploration, and it can be determined at that time whether or not there is bladder involvement. Fortunately, if there is this is likely at the right bladd er dome and away from the bladder trigone. I would be glad to perform cystoscopy if it would be beneficial to the evaluation. Time with Patient: Greater than 30
[2019-07-30] MEDS: PIPERACILLIN-TAZOBACTAM 3.375 GM in SODIUM CHLORIDE 0.9% 100 ML IVPB SCH ×3 (10:25→23:40)
--- NOTE | 2019-07-30 10:37 | P.GSHP ---
History of Present Illness H&P Date: 07/30/19 CHIEF COMPLAINT: Anemia and right lower quadrant abdominal pain HISTORY OF PRESENT ILLNESS: The patient is a 29-year-old previously healthy male who presents with almost 2 month history of troubles with urinating including discharge from the penis. He also reports occasional ache of the right lower quadrant. Baseline he does not have any medical care. Reports being healthy all his life. Never seen a doctor before. 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 He has been cautious about what he eats and has avoided sugars, processed foods as well. He does report occasional blood in his urine. He reports fullness along the right lower quadrant that has been progressive over the past several w eeks. [place] is [place]. He was living in [place] and returned to [place] less than 1-2 weeks ago. He denies any pre-existing fatigue. He is hungry. He presented to the emergency room with anemia, hemoglobin of 4.8. Hgb is up from 4.8 to 6.8 after 2 units of blood. "I feel fine." No reports of abdominal pain at this time. He has been seen by urology. His main concern includes blood and sediment in his urine including need to urinate. He is admitted secondary to anemia on presentation of 4.7, right lower quadrant abdominal pain including abnormal computed tomography scan demonstrating phlegmon of the right lower quadrant. He is currently in the ICU secondary to severe anemia on presentation. PAST MEDICAL HISTORY: See list. PAST SURGICAL HISTORY: See list. MEDICATIONS: See list. ALLERGIES: See list. SOCIAL HISTORY: See list. FAMILY HISTORY: See list. REVIEW OF ORGAN SYSTEMS: CONSTITUTIONAL: No fevers or chills. No recent weight loss. EYES: Denies any trouble with vision. No glasses. HEENT: No difficulties with hearing. No nosebleeds. No difficulty swallowing. RESPIRATORY: Denies pneumonia. Denies any troubles with breathing or dyspnea on exertion. CARDIOVASCULAR: Denies any chest pain, palpitations, or recent heart attacks. GASTROINTESTINAL: Denies fatty food intolerance. Denies change in bowel habits and gas bloat. GENITOURINARY: Has blood in urine and increased urinary frequency. Reports being treated for presumptive sexually transmitted infection. NEUROLOGICAL: Denies any numbness or tingling along the distal extremities. No seizure disorders or headaches. MUSCULOSKELETAL: Denies any back pain, stiffness or joint arthritis. SKIN: No current skin cancer. No rash. PSYCHIATRIC: Denies current depression or suicidal thoughts. ENDOCRINE: Denies current thyroid disorders. Denies any blood sugar glucose intolerance. HEME/LYMPHATIC: Denies any lumps and bumps around the neck. No recent deep venous thrombosis. ALLERGY/IMMUNOLOGY: No immunoglobulin therapy. No immune deficiencies. BREAST: Denies current breast lumps, pain or nipple discharge. PHYSICAL EXAM: VITALS: Reviewed CONSTITUTIONAL: Well developed healthy-appearing male and in no acute distress. EYES: Conjuctivae without sclera icterus. Pupils are equally round and reactive to light. Extraocular movements grossly intact. HEAD, EARS, NOSE, THROAT: Moist buccal mucosa. Head is atraumatic, normocephalic. Hears conversational speech. No nasal drainage. Good dentition. NECK: Supple. No JV distention. No thyroidomegaly. RESPIRATORY: Non-labored respirations and equal bilateral excursions. No gross wheezes. CARDIOVASCULAR: Regular rate and rhythm. Extremities without moderate edema. Palpable 2+ radial pulses. ABDOMEN: Soft. Non-tender. Nondistended. Palpated fullness over 8 cm right lower quadrant. No skin changes. LYMPH: No neck lymphadenopathy. No axillary lymphadenopathy. MUSCULOSKELETAL: Gait within normal limits. Range of motion bilateral upper extremities within normal limits. Nail and fingers with good capillary refill. SKIN: Warm and well perfused with good skin turgor. NEUROLOGIC: Cranial nerves II through XII grossly intact. Sensation upper and extremities intact. No focal or lateralizing signs. PSYCH: Appropriate affect. Alert and oriented to person, place and time. Displays appropriate insight. CLINCAL LABS: Reviewed. WBC on presentation 9.4 down to 7.2. Hemoglobin up from 4.7-6.8. Moderate microcytosis, and hypochromasia. Urinalysis with moderate blood. Stool is negative for blood. IMAGING: Independently reviewed CT of the abdomen and pelvis with phlegmon along the right lower quadrant with minimal contrast. Appendix unable to be identified with phlegmon. No evidence of small bowel obstruction. CT limited without oral contrast. RADIOLOGY: Report reviewed with 10 cm mass right lower quadrant with mixed attenuation including bladder wall thickness ASSESSMENT: 1. Right lower quadrant phlegmon of unclear etiology 2. Anemia, hemoglobin 4.8 upon admission PLAN: 1. 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 No further blood transfusions unless symptomatic. We'll obtain consultation to hematology for further assessment. 3. At this time, reports no abdominal pain and may start diet. At this time, appendiceal rupture with phlegmon cannot be excluded with his given history. 4. Agree with start of antibiotics 5. Would recommend repeat CT of the abdomen and pelvis with oral contrast to further elucidate intra-abdominal pathology 6. Agree with urology consultation for hematuria including bladder wall thickness is found on computed tomography scan. 7. Iron infusion pending results of foreign panel Critical care time 33 minutes Past Medical History Past Medical History: No Reported History History of Any Multi-Drug Resistant Organisms: None Reported Past Surgical History: No Surgical Hx Reported Past Psychological History: No Psychological Hx Reported Smoking Status: Never smoker Past Alcohol Use History: None Reported Past Drug Use History: Marijuana Medications and Allergies Home Medications Medication Instructions Recorded Confirmed Type No Known Home Medications 07/29/19 07/29/19 History Allergies Allergy/AdvReac Type Severity Reaction Status Date / Time No Known Allergies Allergy Verified 07/29/19 20:49 Surgical - Exam Vital Signs Temp Pulse Resp BP Pulse Ox 98.1 F 106 H 18 124/73 100 07/29/19 19:07 07/29/19 19:07 07/29/19 19:07 07/29/19 19:07 07/29/19 19:07 Results - Labs 07/30/19 05:32 07/30/19 05:32 Abnormal Lab Results - Last 24 Hours (Table) 07/29/19 07/29/19 07/29/19 Range/Units 19:46 19:46 19:46 RBC 4.01 L (4.30-5.90) m/uL Hgb 5.1 L* (13.0-17.5) gm/dL Hct 22.0 L (39.0-53.0) % MCV 54.9 L (80.0-100.0) fL MCH 12.7 L (25.0-35.0) pg MCHC 23.2 L (31.0-37.0) g/dL RDW 19.6 H (11.5-15.5) % Plt Count 469 H (150-450) k/uL Nucleated RBCs 1 H (0-0) /100 WBC Sodium 134 L (137-145) mmol/L POC Glucose (mg/dL) (75-99) mg/dL Urine Protein 1+ H (Negative) Urine Blood Large H (Negative) Ur Leukocyte Esterase Large H (Negative) Urine RBC >182 H (0-5) /hpf Urine WBC >182 H (0-5) /hpf Urine WBC Clumps Many H (None) /hpf Urine Mucus Rare H (None) /hpf Urine Yeast (Budding) Many H (None) /hpf Crossmatch 07/29/19 07/29/19 07/29/19 Range/Units 20:34 20:34 23:36 RBC 3.73 L (4.30-5.90) m/uL Hgb 4.7 L* (13.0-17.5) gm/dL Hct 20.8 L (39.0-53.0) % MCV 55.6 L (80.0-100.0) fL MCH 12.5 L (25.0-35.0) pg MCHC 22.6 L (31.0-37.0) g/dL RDW 19.6 H (11.5-15.5) % Plt Count (150-450) k/uL Nucleated RBCs (0-0) /100 WBC Sodium (137-145) mmol/L POC Glucose (mg/dL) 120 H (75-99) mg/dL Urine Protein (Negative) Urine Blood (Negative) Ur Leukocyte Esterase (Negative) Urine RBC (0-5) /hpf Urine WBC (0-5) /hpf Urine WBC Clumps (None) /hpf Urine Mucus (None) /hpf Urine Yeast (Budding) (None) /hpf Crossmatch See Detail 07/30/19 07/30/19 Range/Units 05:32 05:32 RBC (4.30-5.90) m/uL Hgb 6.8 L* D (13.0-17.5) gm/dL Hct 26.3 L (39.0-53.0) % MCV 61.0 L D (80.0-100.0) fL MCH 15.8 L (25.0-35.0) pg MCHC 25.9 L (31.0-37.0) g/dL RDW 26.9 H (11.5-15.5) % Plt Count (150-450) k/uL Nucleated RBCs (0-0) /100 WBC Sodium 135 L (137-145) mmol/L POC Glucose (mg/dL) (75-99) mg/dL Urine Protein (Negative) Urine Blood (Negative) Ur Leukocyte Esterase (Negative) Urine RBC (0-5) /hpf Urine WBC (0-5) /hpf Urine WBC Clumps (None) /hpf Urine Mucus (None) /hpf Urine Yeast (Budding) (None) /hpf Crossmatch Microbiology - Last 24 Hours (Table) 07/29/19 19:46 Urine Culture - Preliminary Urine,Voided Diabetes panel 07/29/19 07/30/19 Range/Units 19:46 05:32 Sodium 134 L 135 L (137-145) mmol/L Potassium 4.3 4.3 (3.5-5.1) mmol/L Chloride 100 105 (98-107) mmol/L Carbon Dioxide 25 23 (22-30) mmol/L BUN 17 13 (9-20) mg/dL Creatinine 0.90 0.70 (0.66-1.25) mg/dL Glucose 93 86 (74-99) mg/dL Calcium 8.9 8.6 (8.4-10.2) mg/dL AST 25 (17-59) U/L ALT 9 (4-49) U/L Alkaline Phosphatase 99 (38-126) U/L Total Protein 7.8 (6.3-8.2) g/dL Albumin 4.2 (3.5-5.0) g/dL Calcium panel 07/29/19 07/30/19 Range/Units 19:46 05:32 Calcium 8.9 8.6 (8.4-10.2) mg/dL Albumin 4.2 (3.5-5.0) g/dL Pituitary panel 07/29/19 07/30/19 Range/Units 19:46 05:32 Sodium 134 L 135 L (137-145) mmol/L Potassium 4.3 4.3 (3.5-5.1) mmol/L Chloride 100 105 (98-107) mmol/L Carbon Dioxide 25 23 (22-30) mmol/L BUN 17 13 (9-20) mg/dL Creatinine 0.90 0.70 (0.66-1.25) mg/dL Glucose 93 86 (74-99) mg/dL Calcium 8.9 8.6 (8.4-10.2) mg/dL Adrenal panel 07/29/19 07/30/19 Range/Units 19:46 05:32 Sodium 134 L 135 L (137-145) mmol/L Potassium 4.3 4.3 (3.5-5.1) mmol/L Chloride 100 105 (98-107) mmol/L Carbon Dioxide 25 23 (22-30) mmol/L BUN 17 13 (9-20) mg/dL Creatinine 0.90 0.70 (0.66-1.25) mg/dL Glucose 93 86 (74-99) mg/dL Calcium 8.9 8.6 (8.4-10.2) mg/dL Total Bilirubin 0.3 (0.2-1.3) mg/dL AST 25 (17-59) U/L ALT 9 (4-49) U/L Alkaline Phosphatase 99 (38-126) U/L Total Protein 7.8 (6.3-8.2) g/dL Albumin 4.2 (3.5-5.0) g/dL Assessment and Plan (1) Hematuria Current Visit: Yes Status: Acute Code(s): R31.9 - HEMATURIA, UNSPECIFIED SNOMED Code(s): 58398566 (2) Severe anemia Current Visit: Yes Status: Acute Code(s): D64.9 - ANEMIA, UNSPECIFIED SNOMED Code(s): 214064737 (3) Iron deficiency anemia Current Visit: Yes Status: Acute Code(s): D50.9 - IRON DEFICIENCY ANEMIA, UNSPECIFIED SNOMED Code(s): 59550630 (4) Penile discharge Current Visit: Yes Status: Acute Code(s): R36.9 - URETHRAL DISCHARGE, UNSPECIFIED SNOMED Code(s): 6669939 (5) Right lower quadrant abdominal mass Current Visit: Yes Status: Acute Code(s): R19.03 - RIGHT LOWER QUADRANT ABDOMINAL SWELLING, MASS AND LUMP SNOMED Code(s): 846602458
--- NOTE | 2019-07-30 14:39 | P.CONS ---
History of Present Illness - Reason for Consult Consult date: 07/30/19 Anemia Requesting physician: Ester Wadlen - Chief Complaint Abdominal Pain and recurrent UTI - History of Present Illness Mr. Portillo is a 29-year-old -[place] male patient who presented to the emergency department with complaints of abdominal pain and recurrent urinary tract infection symptoms. He states it started in May and has been tested for STDs and treated for UTIs as outpatient through different outside acute care clinics. He has what was described as serious like drainage and occasional blood when he urinates. Denies any blood or dark tarry stools. On admission he was found to have hemoglobin of 4.7, microcytic. He received two units of PRBC, hemoglobin today is 6.8 and another unit ordered. He was symptomatic, weak and SOB on admission. CT scan of abdomen was performed and patient was found to have a RLQ mass 10.3x6.4x9cm within the peritoneal cavity. Differentials include ruptured appendix with abscess formation, inflammation of bowel, versus other. In the picture of microcytic anemia underlying acute bleeding must be considered. He has been admitted under the care of ICU and surgery is following. Patient is comfortable during assessment denies any significant anemia symptoms. He plays sport and very active, nonsmoker. He states earlier this year he attempted to donate plasma for extra money but he was turned down due to "low blood counts". He has never seen medical provider and denies any known history or family history of underlying blood disorders. Urinalysis shows large amount of RBCs, Blood, Leuk esters, Yeast, and WBCs, culture is pending. He denies any recent weight loss but states he has been getting t-shirt and sheet soaking night sweats for the past few months. Review of Systems A 14 point review of systems assessed and completed and all neg except HPI Past Medical History Past Medical History: No Reported History History of Any Multi-Drug Resistant Organisms: None Reported Past Surgical History: No Surgical Hx Reported Past Psychological History: No Psychological Hx Reported Smoking Status: Never smoker Past Alcohol Use History: None Reported Past Drug Use History: Marijuana Medications and Allergies Home Medications Medication Instructions Recorded Confirmed Type No Known Home Medications 07/29/19 07/29/19 History Allergies Allergy/AdvReac Type Severity Reaction Status Date / Time No Known Allergies Allergy Verified 07/29/19 20:49 Physical Exam Vitals: Vital Signs Temp Pulse Pulse Resp BP BP Pulse Ox 07/30/19 13:00 84 14 99/78 100 07/30/19 12:00 98.1 F 85 12 120/74 100 07/30/19 11:00 73 12 121/82 100 07/30/19 10:00 73 17 113/75 100 07/30/19 09:00 84 12 117/77 100 07/30/19 08:00 98.6 F 84 23 117/77 100 07/30/19 07:00 75 16 106/64 07/30/19 06:00 84 17 111/62 07/30/19 05:00 78 12 106/64 07/30/19 04:38 98.3 F 80 80 H 114/66 07/30/19 04:00 98.3 F 77 22 107/70 100 07/30/19 03:30 73 17 111/59 07/30/19 03:00 81 19 105/62 07/30/19 02:30 98.1 F 85 12 109/68 100 07/30/19 02:10 80 16 111/67 07/30/19 02:00 98.5 F 87 16 116/73 100 07/30/19 01:50 98.3 F 78 11 L 116/73 100 07/30/19 01:45 98.3 F 84 16 117/75 100 07/30/19 01:31 98.3 F 87 18 117/75 100 07/29/19 23:28 98.3 F 86 17 126/71 100 07/29/19 23:15 98.5 F 90 15 118/70 07/29/19 22:58 98.5 F 88 14 123/70 07/29/19 22:48 98.6 F 98 14 127/72 07/29/19 22:46 98.6 F 98 14 126/79 100 07/29/19 22:01 98.3 F 88 14 126/76 100 07/29/19 20:57 98.7 F 95 14 118/53 100 07/29/19 20:19 98.6 F 82 15 106/65 100 07/29/19 19:07 98.1 F 106 H 18 124/73 100 Intake and Output 07/29/19 07/30/19 07/30/19 22:59 06:59 14:59 Intake Total 0 1845 625 Output Total 400 900 Balance 0 1445 -275 Intake: Intake, IV Titration 525 625 Amount Piperacillin-Tazobactam 3 100 .375 gm In Sodium Chloride 0.9% 100 ml @ 25 mls/hr IVPB Q8HR JAILENE Rx# :[id number] Sodium Chloride 0.9% 1, 525 525 000 ml @ 75 mls/hr IV . [id number] JAILENE Rx#:[id number] Blood Product 0 1320 Rc As-1 Unit 0 310 [id number] Rc As-1 Unit 310 [id number] Output: Urine 400 900 Other: Voiding Method Toilet Urinal Urinal # Bowel Movements 1 Weight 73.482 kg 76 kg Gen: Alert and Oriented, FREDI Neck Supple Trachea midline No palpable adenopathy Heart: Tachy, Reg Abdomen: RLQ mass palpable tender Lungs: No increased effort, CTA, shallow inspirations Ext: No edema Skin: No lesions or rash Results CBC & Chem 7: 07/31/19 04:08 07/31/19 04:08 Labs: Abnormal Lab Results - Last 24 Hours (Table) 07/29/19 07/29/19 07/29/19 Range/Units 19:46 19:46 19:46 RBC 4.01 L (4.30-5.90) m/uL Hgb 5.1 L* (13.0-17.5) gm/dL Hct 22.0 L (39.0-53.0) % MCV 54.9 L (80.0-100.0) fL MCH 12.7 L (25.0-35.0) pg MCHC 23.2 L (31.0-37.0) g/dL RDW 19.6 H (11.5-15.5) % Plt Count 469 H (150-450) k/uL Nucleated RBCs 1 H (0-0) /100 WBC Sodium 134 L (137-145) mmol/L POC Glucose (mg/dL) (75-99) mg/dL Urine Protein 1+ H (Negative) Urine Blood Large H (Negative) Ur Leukocyte Esterase Large H (Negative) Urine RBC >182 H (0-5) /hpf Urine WBC >182 H (0-5) /hpf Urine WBC Clumps Many H (None) /hpf Urine Mucus Rare H (None) /hpf Urine Yeast (Budding) Many H (None) /hpf Crossmatch 07/29/19 07/29/19 07/29/19 Range/Units 20:34 20:34 23:36 RBC 3.73 L (4.30-5.90) m/uL Hgb 4.7 L* (13.0-17.5) gm/dL Hct 20.8 L (39.0-53.0) % MCV 55.6 L (80.0-100.0) fL MCH 12.5 L (25.0-35.0) pg MCHC 22.6 L (31.0-37.0) g/dL RDW 19.6 H (11.5-15.5) % Plt Count (150-450) k/uL Nucleated RBCs (0-0) /100 WBC Sodium (137-145) mmol/L POC Glucose (mg/dL) 120 H (75-99) mg/dL Urine Protein (Negative) Urine Blood (Negative) Ur Leukocyte Esterase (Negative) Urine RBC (0-5) /hpf Urine WBC (0-5) /hpf Urine WBC Clumps (None) /hpf Urine Mucus (None) /hpf Urine Yeast (Budding) (None) /hpf Crossmatch See Detail 07/30/19 07/30/19 Range/Units 05:32 05:32 RBC (4.30-5.90) m/uL Hgb 6.8 L* D (13.0-17.5) gm/dL Hct 26.3 L (39.0-53.0) % MCV 61.0 L D (80.0-100.0) fL MCH 15.8 L (25.0-35.0) pg MCHC 25.9 L (31.0-37.0) g/dL RDW 26.9 H (11.5-15.5) % Plt Count (150-450) k/uL Nucleated RBCs (0-0) /100 WBC Sodium 135 L (137-145) mmol/L POC Glucose (mg/dL) (75-99) mg/dL Urine Protein (Negative) Urine Blood (Negative) Ur Leukocyte Esterase (Negative) Urine RBC (0-5) /hpf Urine WBC (0-5) /hpf Urine WBC Clumps (None) /hpf Urine Mucus (None) /hpf Urine Yeast (Budding) (None) /hpf Crossmatch Microbiology - Last 24 Hours (Table) 07/29/19 19:46 Urine Culture - Preliminary Urine,Voided CT scan - abdomen: report reviewed CT scan - pelvis: report reviewed Assessment and Plan Plan: Assessment and Recommendations: Microcytic Hypochromic Anemia: - MCV = 61 - Transfuse for hemoglobin less than 7 - Iron studies and anemia work-up in place, iron studies may not be fully accurate with recent transfusion. - Concern for blood loss urinary with evidence of hematuria. Stool for OB neg. No overt blood loss is noted. - With the degree of microcytic anemia must consider other etiology: PT, PTT, INR, Fibrinogen ordered - Recheck CBC Now to assess if active bleeding. - Other etiology patient from [facility]: Hereditary versus dietary etiology for severe microcytosis. Will check hemoglobin electrophoresis. - Differential in addition to acute blood loss anemia from urinary loss evidenced by hematuria and underlying infectious/inflammatory process - Recommend urology and GI evaluation RLQ Mass found on CT scan: - Abscess versus other - Underlying malignancy cannot be ruled out although less likely and etiology of infectious/inflammatory cause most consistent with findings. - AFP and Beta HCG tumor markers ordered - General Surgery is following - Spleen 13.5cm Intense Night Sweats: - Febrile versus other Thank you for allowing us to participate in the care of your patient we will follow along with you.
[2019-07-30] MEDS: SODIUM CHLORIDE 0.9% 1,000 ML IV SCH ×2 (15:37→16:03)
[2019-07-30 15:53] LABS: Anisocytosis Marked; HCT 29.2 % (39.0-53.0); HGB 7.7 gm/dL (13.0-17.5); Hypochromasia Marked; MCH 16.3 pg (25.0-35.0); MCHC 26.3 g/dL (31.0-37.0); Mean Platelet Volume 11.5; Microcytosis Marked; Platelet Count 469 k/uL (150-450); Poikilocytosis Marked; RBC 4.72 m/uL (4.30-5.90); RDW 25.8 % (11.5-15.5); WBC 6.6 k/uL (3.8-10.6)
[2019-07-30 15:57] LABS: Partial Thromboplastin Time 26.4 sec (22.0-30.0); Prothrombin Time 10.7 sec (9.0-12.0)
[2019-07-30 15:58] LABS: Reticulocyte % 2.2 % (0.5-2.0)
[2019-07-30 16:14] LABS: % Iron Saturation 10.44 (15.00-50.00)
[2019-07-30 16:35] LABS: Nucleated Red Blood Cells 0 /100 WBC (0-0)
[2019-07-30 16:36] LABS: Eosinophils # (M) 0.07 k/uL (0-0.7); Lymphocytes # (M) 1.06 k/uL (1.0-4.8); Neutrophils # (M) 5.08 k/uL (1.3-7.7); Neutrophils % (M) 77 %; Ovalocytes Present; Total Cells Counted 100
[2019-07-30 16:38] LABS: Polychromasia Present
[2019-07-30 22:44] LABS: Protein, Total 6.5 g/dL (6.2-8.2)
[2019-07-30 23:09] LABS: Ferritin 3.9 ng/mL (22.0-322.0); Folate, Serum 19.4 ng/mL
[2019-07-31 04:40] LABS: Anisocytosis Marked; Basophils # (A) 0.1 k/uL (0-0.2); Basophils % (A) 1 %; Eosinophils # (A) 0.1 k/uL (0-0.7); Eosinophils % (A) 2 %; HGB 7.4 gm/dL (13.0-17.5); Hypochromasia Marked; Lymphocytes # (A) 1.6 k/uL (1.0-4.8); Lymphocytes % (A) 24 %; MCH 15.9 pg (25.0-35.0); MCHC 26.4 g/dL (31.0-37.0); MCV 60.1 fL (80.0-100.0); Mean Platelet Volume 10.3; Microcytosis Marked; Monocytes # (A) 0.4 k/uL (0-1.0); Monocytes % (A) 5 %; Neutrophils # (A) 4.5 k/uL (1.3-7.7); Neutrophils % (A) 66 %; Platelet Count 405 k/uL (150-450); Poikilocytosis Marked; RBC 4.65 m/uL (4.30-5.90); WBC 6.9 k/uL (3.8-10.6)
[2019-07-31 04:47] LABS: RDW 25.8 % (11.5-15.5)
[2019-07-31 04:56] LABS: African American GFR (CKD) >90 (>60 ml/min/1.73 sqM); Anion Gap 7 mmol/L; Blood Urea Nitrogen 11 mg/dL (9-20); Calcium 8.6 mg/dL (8.4-10.2); Carbon Dioxide 26 mmol/L (22-30); Chloride 103 mmol/L (98-107); Glucose 87 mg/dL (74-99); Non-African American GFR(CKD) >90 (>60 ml/min/1.73 sqM); Potassium 4.2 mmol/L (3.5-5.1); Sodium 136 mmol/L (137-145)
[2019-07-31 05:53] LABS: Polychromasia Present
[2019-07-31 05:54] LABS: Ovalocytes Present
[2019-07-31 05:55] LABS: Large Platelets Present; RBC Fragments Present
[2019-07-31] MEDS: PIPERACILLIN-TAZOBACTAM 3.375 GM in SODIUM CHLORIDE 0.9% 100 ML IVPB SCH ×3 (07:57→23:37)
[2019-07-31] MEDS ORDERED: SODIUM FERRIC GLUCONAT-SUCROSE 125 MG in SODIUM CHLORIDE 0.9% 100 ML IVPB ONE (09:00)
--- NOTE | 2019-07-31 09:43 | P.PN ---
Subjective Progress Note Date: 07/31/19 CHIEF COMPLAINT: Anemia and right lower quadrant abdominal pain HISTORY OF PRESENT ILLNESS: The patient is a 29-year-old previously healthy male who presented with almost 2 month history of troubles with urinating including discharge from the penis and right lower quadrant abdominal pain. He was admitt ed secondary to anemia on presentation of 4.7, right lower quadrant abdominal pain including abnormal computed tomography scan demonstrating phlegmon of the right lower quadrant. He received 2 units of blood. Iron panel confirms severe anemia. Today, Hgb up to 7.7. Since admission and antibiotics, his abdominal pain is resolved. He is being followed by urology regarding hematuria. He is tolerating diet. He is in the ICU PHYSICAL EXAM: VITALS: Reviewed CONSTITUTIONAL: Well developed healthy-appearing male and in no acute distress. EYES: Conjuctivae without sclera icterus. Pupils are equally round and reactive to light. Extraocular movements grossly intact. HEAD, EARS, NOSE, THROAT: Moist buccal mucosa. Head is atraumatic, normocephalic. Hears conversational speech. No nasal drainage. Good dentition. NECK: Supple. No JV distention. No thyroidomegaly. RESPIRATORY: Non-labored respirations and equal bilateral excursions. No gross wheezes. CARDIOVASCULAR: Regular rate and rhythm. Palpable 2+ radial pulses. ABDOMEN: Soft. Non-tender. Nondistended. Palpated fullness over 8 cm right lower quadrant. No skin changes. MUSCULOSKELETAL: Nail and fingers with good capillary refill. SKIN: Warm and well perfused with good skin turgor. NEUROLOGIC: Cranial nerves II through XII grossly intact. Sensation upper and extremities intact. No focal or lateralizing signs. PSYCH: Appropriate affect. Alert and oriented to person, place and time. Displays appropriate insight. CLINCAL LABS: Reviewed. WBC on presentation 9.4. WBC down to 6.9 today. Hemoglobin up from 4.7-6.8. Today 7.4 after 2 units of blood. Iron, ferritin and iron saturation are all low. ASSESSMENT: 1. Right lower quadrant phlegmon of unclear etiology 2. Anemia, hemoglobin 4.8 upon admission 3. Hematuria 4. Ruptured appendicitis with phelgmon 5. Severe iron deficiency anemia PLAN: 1. 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 Infectious disease consultation for antibiotic management for ruptured appendicitis with phlegmon. May need IV antibiotics upon discharge to be determined by field sales consultant. 3. Social work services for home care needs 4. Will repeat CT of abdomen and pelvis with oral contrast and IV contrast to further elucidate intr-abdominal pathology 5. Urology following for hematuria 6. Agreeable with transfered to floor 7. Iron infusions for severe iron deficiency anemia. Objective - Vital Signs Vital signs: Vital Signs Temp 98.1 F 07/31/19 08:00 Pulse 90 07/31/19 08:00 Resp 12 07/31/19 08:00 BP 102/61 07/31/19 08:00 Pulse Ox 100 07/31/19 08:00 Intake & Output 07/30/19 07/31/19 07/31/19 18:59 06:59 18:59 Intake Total 1100 1240 425 Output Total 1400 1250 200 Balance -300 -10 225 Weight 72.8 kg Intake: Intake, IV Titration 1100 1000 425 Amount Piperacillin-Tazobactam 3 200 100 100 .375 gm In Sodium Chloride 0.9% 100 ml @ 25 mls/hr IVPB Q8HR [facility] Rx# :[id number] Sodium Chloride 0.9% 1, 900 900 225 000 ml @ 75 mls/hr IV . [id number] [facility] Rx#:[id number] Sodium Ferric Gluconat- 100 Sucrose 125 mg In Sodium Chloride 0.9% 100 ml @ 100 mls/hr IVPB ONCE ONE Rx#:[id number] Oral 240 Output: Urine 1400 1250 200 Other: Voiding Method Urinal Urinal Urinal # Bowel Movements 1 - Labs CBC & Chem 7: 07/31/19 04:08 07/31/19 04:08 Labs: Abnormal Lab Results - Last 24 Hours (Table) 07/29/19 07/30/19 07/30/19 Range/Units 20:34 05:32 15:26 Hgb 7.7 L (13.0-17.5) gm/dL Hct 29.2 L (39.0-53.0) % MCV 62.0 L (80.0-100.0) fL MCH 16.3 L (25.0-35.0) pg MCHC 26.3 L (31.0-37.0) g/dL RDW 25.8 H (11.5-15.5) % Plt Count 469 H (150-450) k/uL Retic Count (0.5-2.0) % Sodium (137-145) mmol/L Iron 43 L (65-175) ug/dL % Saturation 10.44 L (15.00-50.00) Ferritin (22.0-322.0) ng/mL Crossmatch See Detail 07/30/19 07/30/19 07/31/19 Range/Units 15:26 15:26 04:08 Hgb 7.4 L (13.0-17.5) gm/dL Hct 28.0 L (39.0-53.0) % MCV 60.1 L (80.0-100.0) fL MCH 15.9 L (25.0-35.0) pg MCHC 26.4 L (31.0-37.0) g/dL RDW 25.8 H (11.5-15.5) % Plt Count (150-450) k/uL Retic Count 2.2 H (0.5-2.0) % Sodium (137-145) mmol/L Iron (65-175) ug/dL % Saturation (15.00-50.00) Ferritin 3.9 L (22.0-322.0) ng/mL Crossmatch 07/31/19 Range/Units 04:08 Hgb (13.0-17.5) gm/dL Hct (39.0-53.0) % MCV (80.0-100.0) fL MCH (25.0-35.0) pg MCHC (31.0-37.0) g/dL RDW (11.5-15.5) % Plt Count (150-450) k/uL Retic Count (0.5-2.0) % Sodium 136 L (137-145) mmol/L Iron (65-175) ug/dL % Saturation (15.00-50.00) Ferritin (22.0-322.0) ng/mL Crossmatch Microbiology - Last 24 Hours (Table) 07/30/19 05:32 Blood Culture - Preliminary Blood No Growth after 24 hours 07/29/19 19:46 Urine Culture - Final Urine,Voided Assessment and Plan (1) Hematuria Current Visit: Yes Status: Acute Code(s): R31.9 - HEMATURIA, UNSPECIFIED SNOMED Code(s): 47736863 (2) Severe anemia Current Visit: Yes Status: Acute Code(s): D64.9 - ANEMIA, UNSPECIFIED SNOMED Code(s): 353025010 (3) Iron deficiency anemia Current Visit: Yes Status: Acute Code(s): D50.9 - IRON DEFICIENCY ANEMIA, UNSPECIFIED SNOMED Code(s): 79036599 (4) Penile discharge Current Visit: Yes Status: Acute Code(s): R36.9 - URETHRAL DISCHARGE, UNSPECIFIED SNOMED Code(s): 0971310 (5) Right lower quadrant abdominal mass Current Visit: Yes Status: Acute Code(s): R19.03 - RIGHT LOWER QUADRANT ABDOMINAL SWELLING, MASS AND LUMP SNOMED Code(s): 237282960 (6) Ruptured appendicitis Current Visit: Yes Status: Acute Code(s): K35.32 - ACUTE APPENDICITIS WITH PERF AND LOC PERITONITIS, W/O ABSCS SNOMED Code(s): 79876818
--- NOTE | 2019-07-31 10:46 | P.PN ---
Subjective Progress Note Date: 07/31/19 Principal diagnosis: Anemia and RLQ abnormality Hemoglobin stable 7.4. Afebrile, blood cultures negative as of 24 hours. Iron studies are low and Positive RBC confirms blood loss anemia. He has notable iron deficiency from blood loss recommend GI evaluation. Objective - Vital Signs Vital signs: Vital Signs Temp 98.1 F 07/31/19 08:00 Pulse 90 07/31/19 08:00 Resp 12 07/31/19 08:00 BP 102/61 07/31/19 08:00 Pulse Ox 100 07/31/19 08:00 Intake & Output 07/30/19 07/31/19 07/31/19 18:59 06:59 18:59 Intake Total 1100 1240 250 Output Total 1400 1250 200 Balance -300 -10 50 Weight 72.8 kg Intake: Intake, IV Titration 1100 1000 250 Amount Piperacillin-Tazobactam 3 200 100 100 .375 gm In Sodium Chloride 0.9% 100 ml @ 25 mls/hr IVPB Q8HR [facility] Rx# :[id number] Sodium Chloride 0.9% 1, 900 900 150 000 ml @ 75 mls/hr IV . [id number] [facility] Rx#:[id number] Oral 240 Output: Urine 1400 1250 200 Other: Voiding Method Urinal Urinal Urinal # Bowel Movements 1 - Exam Gen: Alert and Oriented, FREDI Neck Supple Trachea midline No palpable adenopathy Heart: Tachy, Reg Abdomen: RLQ mass palpable tender Lungs: No increased effort, CTA, shallow inspirations Ext: No edema Skin: No lesions or rash - Labs CBC & Chem 7: 07/31/19 04:08 07/31/19 04:08 Labs: Abnormal Lab Results - Last 24 Hours (Table) 07/29/19 07/30/19 07/30/19 Range/Units 20:34 05:32 15:26 Hgb 7.7 L (13.0-17.5) gm/dL Hct 29.2 L (39.0-53.0) % MCV 62.0 L (80.0-100.0) fL MCH 16.3 L (25.0-35.0) pg MCHC 26.3 L (31.0-37.0) g/dL RDW 25.8 H (11.5-15.5) % Plt Count 469 H (150-450) k/uL Retic Count (0.5-2.0) % Sodium (137-145) mmol/L Iron 43 L (65-175) ug/dL % Saturation 10.44 L (15.00-50.00) Ferritin (22.0-322.0) ng/mL Crossmatch See Detail 07/30/19 07/30/19 07/31/19 Range/Units 15:26 15:26 04:08 Hgb 7.4 L (13.0-17.5) gm/dL Hct 28.0 L (39.0-53.0) % MCV 60.1 L (80.0-100.0) fL MCH 15.9 L (25.0-35.0) pg MCHC 26.4 L (31.0-37.0) g/dL RDW 25.8 H (11.5-15.5) % Plt Count (150-450) k/uL Retic Count 2.2 H (0.5-2.0) % Sodium (137-145) mmol/L Iron (65-175) ug/dL % Saturation (15.00-50.00) Ferritin 3.9 L (22.0-322.0) ng/mL Crossmatch 07/31/19 Range/Units 04:08 Hgb (13.0-17.5) gm/dL Hct (39.0-53.0) % MCV (80.0-100.0) fL MCH (25.0-35.0) pg MCHC (31.0-37.0) g/dL RDW (11.5-15.5) % Plt Count (150-450) k/uL Retic Count (0.5-2.0) % Sodium 136 L (137-145) mmol/L Iron (65-175) ug/dL % Saturation (15.00-50.00) Ferritin (22.0-322.0) ng/mL Crossmatch Microbiology - Last 24 Hours (Table) 07/30/19 05:32 Blood Culture - Preliminary Blood No Growth after 24 hours 07/29/19 19:46 Urine Culture - Final Urine,Voided Assessment and Plan Plan: Assessment and Recommendations: Microcytic Hypochromic Anemia: - MCV = 61 - Transfuse for hemoglobin less than 7 - Iron studies and anemia work-up in place, iron studies may not be fully accurate with recent transfusion. - Concern for blood loss urinary with evidence of hematuria. Stool for OB neg. No overt blood loss is noted. - With the degree of microcytic anemia must consider other etiology: PT, PTT, INR, Fibrinogen ordered - Recheck CBC Now to assess if active bleeding. - Other etiology patient from [facility]: Hereditary versus dietary etiology for severe microcytosis. Will check hemoglobin electrophoresis. If all negative can further evaluate for Lead, Copper, Zinc. - Differential in addition to acute blood loss anemia from urinary loss evidenced by hematuria and underlying infectious/inflammatory process RLQ Mass found on CT scan: - Abscess versus other - Underlying malignancy cannot be ruled out although less likely and etiology of infectious/inflammatory cause most consistent with findings. - AFP and Beta HCG tumor markers ordered - General Surgery is following - Spleen 13.5cm Intense Night Sweats: - Febrile versus other Plan: - Recommend further abdominal imaging to re-evaluate RLQ - Upper and Lower GI scope for chronic iron deficiency blood loss anemia - Recommend cystoscopy per Urology - Parental Iron given per ICU team, if concern for picture of sepsis parental iron should be held. Source of bleeding likely urinary although with the length and severe iron deficiency should consider other sources as well. If urology work-up is non-diagnstic will need full GI work-up, despite Stool for OB neg.
--- NOTE | 2019-07-31 12:38 | P.PN ---
Subjective Progress Note Date: 07/31/19 On today's evaluation of 5 72,020 the patient is looking well. He has no specific complaints. He got transfused with packed RBCs and the patient's hemoglobin is at 7.7. No fever. No chills. He is on IV Zosyn regarding the right lower quadrant phlegmon and etiology of this is not clear. There is also a suspicion for enteral vesicular fistula. The patient is being got some clots of blood and fragments of tissue. Cultures are negative thus far. He has iron deficiency anemia. He'll be given IV iron. He is also being worked up for hemoglobinopathy and hematology oncology is on the case. Renal function is stable. Alpha-fetoprotein level is low. 4 calcitonin level is low 0.08. LDH is at 372. Objective - Vital Signs Vital signs: Vital Signs Temp 97.7 F 07/31/19 10:10 Pulse 62 07/31/19 10:10 Resp 15 07/31/19 10:10 BP 116/64 07/31/19 10:10 Pulse Ox 100 07/31/19 10:10 Intake & Output 07/30/19 07/31/19 07/31/19 18:59 06:59 18:59 Intake Total 1100 1240 425 Output Total 1400 1250 200 Balance -300 -10 225 Weight 72.8 kg Intake: Intake, IV Titration 1100 1000 425 Amount Piperacillin-Tazobactam 3 200 100 100 .375 gm In Sodium Chloride 0.9% 100 ml @ 25 mls/hr IVPB Q8HR [facility] Rx# :[id number] Sodium Chloride 0.9% 1, 900 900 225 000 ml @ 75 mls/hr IV . [id number] [facility] Rx#:[id number] Sodium Ferric Gluconat- 100 Sucrose 125 mg In Sodium Chloride 0.9% 100 ml @ 100 mls/hr IVPB ONCE ONE Rx#:[id number] Oral 240 Output: Urine 1400 1250 200 Other: Voiding Method Urinal Urinal Urinal # Bowel Movements 1 - Exam The patient appeared well nourished and normally developed. Vital signs as documented. Head exam is unremarkable. No scleral icterus or corneal arcus noted. Neck is without jugular venous distension, thyromegaly, or carotid bruits. Carotid upstrokes are brisk bilaterally. Lungs are clear to auscultation and percussion. Cardiac exam reveals the PMI to be normally sized and situated. Rhythm is regular. First and second heart sounds normal. No murmurs, rubs or gallops. Abdominal exam reveals a palpable masslike collection in the right lower quadrant area. The area is very well-defined. There is direct tenderness. No rebound tenderness. No guarding. No peritoneal signs. No ascites. No organomegaly. Bowel sounds are hypoactive at the present.. Extremities are nonedematous and both femoral and pedal pulses are normal.Examination of the skin revealed no evidence of significant rashes, suspicious appearing nevi or other concerning lesions. Neurologically the patient is awake and alert and there is no focal neurological deficits. - Labs CBC & Chem 7: 07/31/19 04:08 07/31/19 04:08 Labs: Abnormal Lab Results - Last 24 Hours (Table) 07/29/19 07/30/19 07/30/19 Range/Units 20:34 05:32 15:26 Hgb 7.7 L (13.0-17.5) gm/dL Hct 29.2 L (39.0-53.0) % MCV 62.0 L (80.0-100.0) fL MCH 16.3 L (25.0-35.0) pg MCHC 26.3 L (31.0-37.0) g/dL RDW 25.8 H (11.5-15.5) % Plt Count 469 H (150-450) k/uL Retic Count (0.5-2.0) % Sodium (137-145) mmol/L Iron 43 L (65-175) ug/dL % Saturation 10.44 L (15.00-50.00) Ferritin (22.0-322.0) ng/mL Crossmatch See Detail 07/30/19 07/30/19 07/31/19 Range/Units 15:26 15:26 04:08 Hgb 7.4 L (13.0-17.5) gm/dL Hct 28.0 L (39.0-53.0) % MCV 60.1 L (80.0-100.0) fL MCH 15.9 L (25.0-35.0) pg MCHC 26.4 L (31.0-37.0) g/dL RDW 25.8 H (11.5-15.5) % Plt Count (150-450) k/uL Retic Count 2.2 H (0.5-2.0) % Sodium (137-145) mmol/L Iron (65-175) ug/dL % Saturation (15.00-50.00) Ferritin 3.9 L (22.0-322.0) ng/mL Crossmatch 07/31/19 Range/Units 04:08 Hgb (13.0-17.5) gm/dL Hct (39.0-53.0) % MCV (80.0-100.0) fL MCH (25.0-35.0) pg MCHC (31.0-37.0) g/dL RDW (11.5-15.5) % Plt Count (150-450) k/uL Retic Count (0.5-2.0) % Sodium 136 L (137-145) mmol/L Iron (65-175) ug/dL % Saturation (15.00-50.00) Ferritin (22.0-322.0) ng/mL Crossmatch Microbiology - Last 24 Hours (Table) 07/30/19 05:32 Blood Culture - Preliminary Blood No Growth after 24 hours 07/29/19 19:46 Urine Culture - Final Urine,Voided Assessment and Plan Plan: 1 large right lower quadrant inflammatory complex mass with secondary abdominal pain and abnormal urine characteristics including urination of purulent material and some occasional hematuria. As such, I am considering the possibility of a ruptured appendicitis with abscess formation. Inflammatory bowel disease with secondary complications felt to be less likely. Nevertheless, there is a high concern of a colovesicular fistula based on the above-mentioned presentation. 2 abnormal urinalysis and urination with urine characteristics. Consider colovesicular fistula. 3 abdominal pain secondary to above 4 severe anemia received a total of 2 units of packed RBC, likely subacute versus chronic. Hemoglobin is up to 6.8. The patient received a total of 2 units of packed RBC. 5 reactive thrombocytosis Plan Check blood cultures, cultures are negative thus far Check urine cultures, cultures are negative thus far Put the patient IV Zosyn General surgery consultation has been done and the patient will be kept on IV antibiotics for now Urology consultation Blood transfusion has been completed and the patient's hemoglobin is up to 7.4 Check iron studies showed iron the percent anemia the patient will be given static gluconate IV check hemoglobin electrophoresis Transfer to a medical surgical floor Awaiting consultation with above-mentioned specialties.
[2019-07-31] MEDS: SODIUM CHLORIDE 0.9% 1,000 ML IV SCH (16:27)
[2019-08-01] MEDS: SODIUM CHLORIDE 0.9% 1,000 ML IV SCH ×2 (04:22→08:46)
[2019-08-01 07:23] LABS: African American GFR (CKD) >90 (>60 ml/min/1.73 sqM); Anion Gap 7 mmol/L; Blood Urea Nitrogen 10 mg/dL (9-20); C Reactive Protein 6.4 mg/L (<10.0); Calcium 8.7 mg/dL (8.4-10.2); Carbon Dioxide 24 mmol/L (22-30); Chloride 104 mmol/L (98-107); Glucose 78 mg/dL (74-99); Non-African American GFR(CKD) >90 (>60 ml/min/1.73 sqM); Potassium 4.4 mmol/L (3.5-5.1); Sodium 135 mmol/L (137-145)
[2019-08-01 07:34] LABS: Anisocytosis Marked; Basophils # (A) 0.1 k/uL (0-0.2); Basophils % (A) 1 %; Eosinophils # (A) 0.2 k/uL (0-0.7); Eosinophils % (A) 3 %; HCT 28.5 % (39.0-53.0); HGB 7.3 gm/dL (13.0-17.5); Hypochromasia Marked; Lymphocytes # (A) 1.6 k/uL (1.0-4.8); Lymphocytes % (A) 28 %; MCH 15.6 pg (25.0-35.0); MCHC 25.4 g/dL (31.0-37.0); MCV 61.2 fL (80.0-100.0); Mean Platelet Volume 9.9; Microcytosis Marked; Monocytes # (A) 0.3 k/uL (0-1.0); Monocytes % (A) 6 %; Neutrophils # (A) 3.4 k/uL (1.3-7.7); Neutrophils % (A) 60 %; Platelet Count 443 k/uL (150-450); Poikilocytosis Marked; RBC 4.66 m/uL (4.30-5.90); WBC 5.7 k/uL (3.8-10.6)
[2019-08-01 07:37] LABS: RDW 26.5 % (11.5-15.5)
[2019-08-01 07:57] LABS: Mixed Population RBC Present
[2019-08-01 07:58] LABS: RBC Fragments Present
[2019-08-01 07:59] LABS: Ovalocytes Present; Polychromasia Present
[2019-08-01] MEDS: SODIUM FERRIC GLUCONAT-SUCROSE 125 MG in SODIUM CHLORIDE 0.9% 100 ML IVPB SCH (08:48)
[2019-08-01] MEDS: IOPAMIDOL CONTRAST (ORAL USE) VIAL PO PRN ×2 (08:48→09:59)
[2019-08-01] MEDS: PIPERACILLIN-TAZOBACTAM 3.375 GM in SODIUM CHLORIDE 0.9% 100 ML IVPB SCH ×2 (09:59→18:33)
--- NOTE | 2019-08-01 11:29 | CT ---
EXAMINATION TYPE: CT abdomen pelvis w con DATE OF EXAM: 08/01/2019 COMPARISON: 07/29/2019 HISTORY: right lower quadrant mass, gross hematuria CT DLP: 405.9 mGycm Automated exposure control for dose reduction was used. TECHNIQUE: Helical acquisition of images was performed from the lung bases through the pelvis. CONTRAST: Performed with Oral Contrast and with IV Contrast, patient injected with 100 mL of Isovue 300. FINDINGS: LUNG BASES: Nodular groundglass density on image 1 of 22 on series 4 is seen in the right lower lobe. This portion of the lung was not imaged on the prior of 07/29/2019. This could represent atelectasis or a true pulmonary nodule. LIVER/GB: No significant abnormality is appreciated. PANCREAS: No significant abnormality is seen. SPLEEN: Spleen is upper limits of normal size in longitudinal dimension measuring 13.6 cm however non enlarged in craniocaudal dimension. ADRENALS: No significant abnormality is seen. KIDNEYS: Kidneys enhance and excrete symmetrically without hydronephrosis. Punctate 2 mm too small to accurately characterize right midpole lesion is seen on series 6 image 26. FREE AIR: No free air is visualized. ADENOPATHY: Mildly enlarged aortocaval lymph node measures 1.1 cm in short axis on series 3 image 45 . OSSEOUS STRUCTURES: No significant abnormality is seen. BOWEL: Again there is a complex mass in the right lower quadrant surrounding the cecum and terminal ileum measuring up to 17.7 x 9.7 cm. The soft tissue component circumferentially significantly narrow s the lumen of the cecum, terminal ileum, and portions of the ascending colon although there is no ob struction as contrast is able to pass into the transverse colon and descending colon. Inflammatory ph legmonous change predominates in the right low abdomen and right hemipelvis abutting the urinary blad sherwin. It is difficult to distinguish any possible continuity with the urinary bladder although the uri nary bladder flowers are markedly thickened with surrounding inflammatory fat stranding. OTHER: A small amount of free fluid is seen within the pelvis. IMPRESSION: 1. LARGE COMPLEX RIGHT LOWER QUADRANT MASS HAS A SIMILAR APPEARANCE TO THE PRIOR OF 07/29/2019 CAUSING SIGNIFICANT LUMINAL NARROWING OF BOTH LARGE AND SMALL BOWEL WITHOUT OBSTRUCTION. GIVEN THE SURROUNDI NG INFLAMMATORY FAT STRANDING FINDINGS REMAIN HIGHLY CONCERNING FOR ENCAPSULATED, WALLED OFF ABSCESS STATUS POST APPENDICEAL PERFORATION WITH CLOSE ASSOCIATION TO THE URINARY BLADDER AND POSSIBLY REACTI VE CYSTITIS. ALTERNATIVE CONSIDERATIONS ARE FOR NEOPLASM SUCH LYMPHOMA OR GIST TUMOR OR SEQUELA OF SEVERE COLITIS. SMALL AMOUNT OF FREE FLUID IS SEEN WITHIN THE PELVIS. 2. GROUNDGLASS 5 MM NODULAR DENSITY IN THE RIGHT LOWER LOBE MAY RELATE TO ATELECTASIS OR PARTIALLY SUALIZED PULMONARY NODULE.
[2019-08-01 11:40] LABS: Free Kappa Lt Chain Qnt, Serum 3.01 mg/dL (0.33-1.94)
--- NOTE | 2019-08-01 12:17 | P.PN ---
<Anitha Vega A - Last Filed: 08/01/19 12:21> Subjective Progress Note Date: 08/01/19 CHIEF COMPLAINT: Anemia and right lower quadrant abdominal pain HISTORY OF PRESENT ILLNESS: Patient examined this morning at the bedside. He denies abdominal pain. Tolerating diet. Denies nausea or vomiting. Passing flatus. WBC 5.7. Hemoglobin 7.3. PHYSICAL EXAM: VITALS: Reviewed CONSTITUTIONAL: Well developed healthy-appearing male and in no acute distress. EYES: Conjuctivae without sclera icterus. Pupils are equally round and reactive to light. Extraocular movements grossly intact. HEAD, EARS, NOSE, THROAT: Moist buccal mucosa. Head is atraumatic, normoceph alic. Hears conversational speech. No nasal drainage. Good dentition. NECK: Supple. No JV distention. No thyroidomegaly. RESPIRATORY: Non-labored respirations and equal bilateral excursions. No gross wheezes. CARDIOVASCULAR: Regular rate and rhythm. Palpable 2+ radial pulses. ABDOMEN: Soft. Nondistended. Mild tenderness on palpation of right lower quadrant. MUSCULOSKELETAL: Nail and fingers with good capillary refill. SKIN: Warm and well perfused with good skin turgor. NEUROLOGIC: Cranial nerves II through XII grossly intact. Sensation upper and extremities intact. No focal or lateralizing signs. PSYCH: Appropriate affect. Alert and oriented to person, place and time. Displays appropriate insight. ASSESSMENT: 1. Right lower quadrant phlegmon of unclear etiology, suspect secondary to ruptured appendicitis 2. Anemia, hemoglobin 4.8 upon admission 3. Hematuria 4. Ruptured appendicitis with phelgmon 5. 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 Continue iron infusions Continue diet as tolerated Continue antibiotics. Infectious disease on consult CT abdomen and pelvis ordered. Await results Nurse practitioner note has been reviewed by physician. Signing provider agrees with the documented findings, assessment, and plan of care. Objective - Vital Signs Vital signs: Vital Signs Temp 97.9 F 08/01/19 11:15 Pulse 68 08/01/19 11:15 Resp 18 08/01/19 11:15 BP 106/64 08/01/19 11:15 Pulse Ox 100 08/01/19 11:15 Intake & Output 07/31/19 08/01/19 08/01/19 18:59 06:59 18:59 Intake Total 950 Output Total 200 0 Balance 750 0 Intake: Intake, IV Titration 950 Amount Piperacillin-Tazobactam 3 200 .375 gm In Sodium Chloride 0.9% 100 ml @ 25 mls/hr IVPB Q8HR [facility] Rx# :[id number] Sodium Chloride 0.9% 1, 525 000 ml @ 75 mls/hr IV . [id number] [facility] Rx#:[id number] Sodium Ferric Gluconat- 225 Sucrose 125 mg In Sodium Chloride 0.9% 100 ml @ 100 mls/hr IVPB ONCE ONE Rx#:[id number] Output: Urine 200 0 Other: Voiding Method Urinal Urinal Urinal # Voids 2 2 - Labs CBC & Chem 7: 08/01/19 06:16 08/01/19 06:16 Labs: Abnormal Lab Results - Last 24 Hours (Table) 07/30/19 08/01/19 08/01/19 Range/Units 15:26 06:16 06:16 Hgb 7.3 L (13.0-17.5) gm/dL Hct 28.5 L (39.0-53.0) % MCV 61.2 L (80.0-100.0) fL MCH 15.6 L (25.0-35.0) pg MCHC 25.4 L (31.0-37.0) g/dL RDW 26.5 H (11.5-15.5) % Sodium 135 L (137-145) mmol/L Free [place] LC, Quant 3.01 H (0.33-1.94) mg/dL Microbiology - Last 24 Hours (Table) 07/30/19 05:32 Blood Culture - Preliminary Blood No Growth after 48 hours <Ester Walden N - Last Filed: 08/02/19 16:58> Subjective Patient seen and evaluated with above. CT of the abdomen and pelvis independently reviewed demonstrating large phlegmon along the right lower quadrant more likely consistent with ruptured appendicitis. With this large complicated phlegmon, higher risk for small bowel resection including large bowel resection should surgery be rushed. Recommend interval appendectomy. Will need IV antibiotics prolonged to control inflammation for optimal surgery. In the meantime continue with iron infusion. Also continue with IV antibiotics. Awaiting additional antibiotic management with infectious disease Objective - Vital Signs Vital signs: Vital Signs Temp 97.1 F L 08/02/19 11:12 Pulse 67 08/02/19 11:12 Resp 18 08/02/19 11:12 BP 124/57 08/02/19 11:12 Pulse Ox 100 08/02/19 11:12 Intake & Output 08/01/19 08/02/19 08/02/19 18:59 06:59 18:59 Intake Total 600 1090 Output Total 0 Balance 600 1090 Intake: Intake, IV Titration 600 100 Amount Piperacillin-Tazobactam 3 100 .375 gm In Sodium Chloride 0.9% 100 ml @ 25 mls/hr IVPB Q8HR [facility] Rx# :[id number] Sodium Chloride 0.9% 1, 600 000 ml @ 75 mls/hr IV . [id number] [facility] Rx#:[id number] Oral 990 Output: Urine 0 Other: Voiding Method Urinal Urinal Urinal # Voids 2 2 - Labs CBC & Chem 7: 08/01/19 06:16 08/01/19 06:16 Labs: Microbiology - Last 24 Hours (Table) 07/30/19 05:32 Blood Culture - Preliminary Blood No Growth after 72 hours Assessment and Plan (1) Hematuria Current Visit: Yes Status: Acute Code(s): R31.9 - HEMATURIA, UNSPECIFIED SNOMED Code(s): 21922407 (2) Severe anemia Current Visit: Yes Status: Acute Code(s): D64.9 - ANEMIA, UNSPECIFIED SNOMED Code(s): 095723495 (3) Iron deficiency anemia Current Visit: Yes Status: Acute Code(s): D50.9 - IRON DEFICIENCY ANEMIA, UNSPECIFIED SNOMED Code(s): 03257441 (4) Penile discharge Current Visit: Yes Status: Acute Code(s): R36.9 - URETHRAL DISCHARGE, UNSPECIFIED SNOMED Code(s): 0021273 (5) Right lower quadrant abdominal mass Current Visit: Yes Status: Acute Code(s): R19.03 - RIGHT LOWER QUADRANT ABDOMINAL SWELLING, MASS AND LUMP SNOMED Code(s): 451736150 (6) Ruptured appendicitis Current Visit: Yes Status: Acute Code(s): K35.32 - ACUTE APPENDICITIS WITH PERF AND LOC PERITONITIS, W/O ABSCS SNOMED Code(s): 03246640
[2019-08-01 12:47] LABS: Albumin 3.17 g/dL (3.80-4.90); Gamma Globulin 1.38 g/dL (0.70-1.50)
--- NOTE | 2019-08-01 13:37 | P.PN ---
Subjective Progress Note Date: 08/01/19 Principal diagnosis: Abdominal pain secondary to large right lower quadrant inflammatory complex mass The patient is seen today 08/01/2019 in follow-up on the regular medical floor. He is currently awake and alert in no acute distress. He states his right lower quadrant discomfort has improved but not completely gone. He is still having some blood-tinged urine. Urine culture revealed no growth. Blood cultures reveal no growth. He is status post 2 units of packed red blood cells this admission. Current hemoglobin 7.3. Platelets 143. White count 5.7. Sodium 135. Potassium 4.4. Creatinine 0.79. He remains on Zosyn. 0.9 normal saline at 75 ML's per hour. Iron replacement. He is currently afebrile. Maintaining good O2 saturations up to 100% on room air. He is hemodynamically stable. Objective - Vital Signs Vital signs: Vital Signs Temp 97.9 F 08/01/19 11:15 Pulse 68 08/01/19 11:15 Resp 18 08/01/19 11:15 BP 106/64 08/01/19 11:15 Pulse Ox 100 08/01/19 11:15 Intake & Output 07/31/19 08/01/19 08/01/19 18:59 06:59 18:59 Intake Total 950 Output Total 200 0 Balance 750 0 Intake: Intake, IV Titration 950 Amount Piperacillin-Tazobactam 3 200 .375 gm In Sodium Chloride 0.9% 100 ml @ 25 mls/hr IVPB Q8HR [facility] Rx# :[id number] Sodium Chloride 0.9% 1, 525 000 ml @ 75 mls/hr IV . [id number] [facility] Rx#:[id number] Sodium Ferric Gluconat- 225 Sucrose 125 mg In Sodium Chloride 0.9% 100 ml @ 100 mls/hr IVPB ONCE ONE Rx#:[id number] Output: Urine 200 0 Other: Voiding Method Urinal Urinal Urinal # Voids 2 2 - Exam Very pleasant 29-year-old gentleman in no acute distress. On room air. The patient appeared well nourished and normally developed. Vital signs as documented. Head exam is unremarkable. No scleral icterus or corneal arcus noted. Neck is without jugular venous distension, thyromegaly, or carotid bruits. Carotid upstrokes are brisk bilaterally. Lungs are clear to auscultation and percussion. Cardiac exam reveals the PMI to be normally sized and situated. Rhythm is regular. First and second heart sounds normal. No murmurs, rubs or gallops. Abdominal exam reveals a palpable masslike collection in the right lower quadrant area. The area is very well-defined. There is direct tenderness. No guarding. No peritoneal signs. No ascites. No organomegaly. Bowel sounds are hypoactive at the present. Extremities are nonedematous and both femoral and pedal pulses are normal.Examination of the skin revealed no evidence of significant rashes, suspicious appearing nevi or other concerning lesions. Neurologically the patient is awake and alert and there is no focal ne urological deficits. - Labs CBC & Chem 7: 08/01/19 06:16 08/01/19 06:16 Labs: Abnormal Lab Results - Last 24 Hours (Table) 07/30/19 08/01/19 08/01/19 Range/Units 15:26 06:16 06:16 Hgb 7.3 L (13.0-17.5) gm/dL Hct 28.5 L (39.0-53.0) % MCV 61.2 L (80.0-100.0) fL MCH 15.6 L (25.0-35.0) pg MCHC 25.4 L (31.0-37.0) g/dL RDW 26.5 H (11.5-15.5) % Sodium 135 L (137-145) mmol/L Albumin (PEP) 3.17 L (3.80-4.90) g/dL Qbliy-7-Pebriwvzk 0.57 L (0.60-1.00) g/dL Free [place] LC, Quant 3.01 H (0.33-1.94) mg/dL Microbiology - Last 24 Hours (Table) 07/30/19 05:32 Blood Culture - Preliminary Blood No Growth after 48 hours Assessment and Plan Assessment: 1 large right lower quadrant inflammatory complex mass with secondary abdominal pain and abnormal urine characteristics including urination of purulent material and some occasional hematuria. Considering the possibility of a ruptured appendicitis with abscess formation. Inflammatory bowel disease with secondary complications felt to be less likely. Nevertheless, there is a high concern of a colovesicular fistula based on the above-mentioned presentation. Follow-up computed tomography scan done 07/22/2019 revealed a large complex right lower quadrant mass similar to previous CAT scan on 07/29/2019 causing significant luminal narrowing of both large and small bowel without obstruction. Highly concerning for encapsulated, walled off abscess status post appendiceal perforation with close association to the urinary bladder and possible reactive cystitis. 2 abnormal urinalysis and urination with urine characteristics. Consider colovesicular fistula. 3 abdominal pain secondary to above 4 severe anemia received a total of 2 units of packed RBC, likely subacute versus chronic. Hemoglobin is up to 6.8. The patient received a total of 2 units of packed RBC. Current hemoglobin 7.3. 5 reactive thrombocytosis, current platelet count 443. Plan The patient was seen and evaluated by Dr. Day Follow-up CAT scan and labs reviewed Surgical services are on the case regarding possible surgical intervention Urology is on the case Remains on Zosyn Stable from the pulmonary and critical care standpoint We will follow as needed I, the cosigning physician, performed a history & physical examination of the patient. Lungs sounds are clear. Maintaining good O2 saturations in the 90s on room air. I discussed the assessment and plan of care with my nurse practitioner, Alis Michelle. I attest to the above note as dictated by her.
[2019-08-01 14:19] LABS: C. trachomatis,PCR Negative (Neg,Equiv); Chlamydia trachomatis Source Urine; N. gonorrhoeae,PCR Negative (Neg,Equiv); Neisseria Source Urine
[2019-08-01] MEDS ORDERED: RX INFO: IV CONTRAST WAS GIVEN 1 EACH MISC MISCELLANE PRN (15:27)
--- NOTE | 2019-08-01 15:35 | P.PN ---
Subjective Progress Note Date: 08/01/19 Principal diagnosis: Anemia and RLQ abnormality He has no acute complaints today. Objective - Vital Signs Vital signs: Vital Signs Temp 97.9 F 08/01/19 11:15 Pulse 68 08/01/19 11:15 Resp 18 08/01/19 11:15 BP 106/64 08/01/19 11:15 Pulse Ox 100 08/01/19 11:15 Intake & Output 07/31/19 08/01/19 08/01/19 18:59 06:59 18:59 Intake Total 950 Output Total 200 0 Balance 750 0 Intake: Intake, IV Titration 950 Amount Piperacillin-Tazobactam 3 200 .375 gm In Sodium Chloride 0.9% 100 ml @ 25 mls/hr IVPB Q8HR [facility] Rx# :[id number] Sodium Chloride 0.9% 1, 525 000 ml @ 75 mls/hr IV . [id number] [facility] Rx#:[id number] Sodium Ferric Gluconat- 225 Sucrose 125 mg In Sodium Chloride 0.9% 100 ml @ 100 mls/hr IVPB ONCE ONE Rx#:[id number] Output: Urine 200 0 Other: Voiding Method Urinal Urinal Urinal # Voids 2 2 - Exam Gen: Alert and Oriented, FREDI Neck Supple Trachea midline No palpable adenopathy Heart: Tachy, Reg Abdomen: RLQ mass palpable tender Lungs: No increased effort, CTA, shallow inspirations Ext: No edema Skin: No lesions or rash - Labs CBC & Chem 7: 08/01/19 06:16 08/01/19 06:16 Labs: Abnormal Lab Results - Last 24 Hours (Table) 07/30/19 07/30/19 08/01/19 Range/Units 15:26 15:26 06:16 Hgb 7.3 L (13.0-17.5) gm/dL Hct 28.5 L (39.0-53.0) % MCV 61.2 L (80.0-100.0) fL MCH 15.6 L (25.0-35.0) pg MCHC 25.4 L (31.0-37.0) g/dL RDW 26.5 H (11.5-15.5) % Hemoglobin A1 98.2 H (96.5-97.8) % Hemoglobin A2 1.8 L (2.2-3.2) % Sodium (137-145) mmol/L Albumin (PEP) 3.17 L (3.80-4.90) g/dL Dpyzy-2-Gcrbcjvhn 0.57 L (0.60-1.00) g/dL Free [place] LC, Quant 3.01 H (0.33-1.94) mg/dL 08/01/19 Range/Units 06:16 Hgb (13.0-17.5) gm/dL Hct (39.0-53.0) % MCV (80.0-100.0) fL MCH (25.0-35.0) pg MCHC (31.0-37.0) g/dL RDW (11.5-15.5) % Hemoglobin A1 (96.5-97.8) % Hemoglobin A2 (2.2-3.2) % Sodium 135 L (137-145) mmol/L Albumin (PEP) (3.80-4.90) g/dL Zkgxt-8-Zrjstdwxl (0.60-1.00) g/dL Free [place] LC, Quant (0.33-1.94) mg/dL Microbiology - Last 24 Hours (Table) 07/30/19 05:32 Blood Culture - Preliminary Blood No Growth after 48 hours Assessment and Plan Plan: Assessment and Recommendations: Microcytic Hypochromic Anemia: - MCV = 61 - Transfuse for hemoglobin less than 7 - There is a chronic iron deficiency noted in the results of his lab values, this maybe related to urinary versus GI blood loss. Recommend further evaluation by Urology and Full GI evaluation. - Parental Iron status post / - Hemoglobin Electrophoresis for hemaglobinopathy consistent with iron deficiency. RLQ Mass found on CT scan: - Abscess versus other - Reviewed repeat CT abdomen - General Surgery is following - Spleen 13.5cm Intense Night Sweats: - Subjective Fevers versus other - Improving - Objective afebrile - Urine and blood cultures neg Plan: - Daily CBC - Urology and GI evaluation is recommended defer to surgical team - Diagnostic imaging of the lung is recommended for full picture given the undefined underlying etiology and RLL atelectasis (most likely versus pulmonary nodule). - Patient is at baseline asymptomatic (no c/o SOB, Fatigue, Pain) for overall picture, therefore thorough diagnostics will assist in definitive diagnosis. Physician Attest: I have completed the full history and physical and I have developed the complete impression and plan, agree with dictation. Dictated as a scribe.
--- NOTE | 2019-08-01 20:09 | PN ---
PROGRESS NOTE DATE OF SERVICE: 08/01/2019 REASON FOR FOLLOWUP: Abdominal abscess. INTERVAL HISTORY: The patient is currently afebrile. The patient is breathing comfortably. The patient's abdominal pain has improved. No nausea, no vomiting. No abdominal pain. Still having some drainage from his urethra. No diarrhea. PHYSICAL EXAMINATION: Blood pressure 106/64 with a pulse of 68, temperature 97.9. He is 99% on room air. General description is a young male lying in bed in no distress. RESPIRATORY SYSTEM: Unlabored breathing. Clear to auscultation anteriorly. HEART: S1, S2. Regular rate and rhythm. ABDOMEN: Soft. No tenderness. No guarding or rigidity. LABS/IMAGING: Hemoglobin is 7.3, white count 5.7, BUN of 10, creatinine 0.79. He did have a repeat CT of abdomen and pelvis with large complex right lower quadrant mass, similar appearance to the prior, with significant luminal narrowing of both large and small bowel without obstruction, with concern for encapsulated, walled-off abscess. DIAGNOSTIC IMPRESSION AND PLAN: Patient with abdominal abscess, possible perforation and a question of communicating with the with such a large mass, the patient will benefit from surgical drainage of the same. In order to help heal, antibiotic alone will ultimately fail. This will be discussed further with Surgery. Continue with Regis and monitor his clinical course closely. MMODL / IJN: [id number] /
[2019-08-02] MEDS: PIPERACILLIN-TAZOBACTAM 3.375 GM in SODIUM CHLORIDE 0.9% 100 ML IVPB SCH ×3 (00:02→15:46)
--- NOTE | 2019-08-02 00:48 | P.CONS ---
History of Present Illness - Reason for Consult Consult date: 07/31/19 abd abscess and out patient IV abx Requesting physician: Ester Walden - Chief Complaint abd pain and urinary burning x few weeks - History of Present Illness Patient is a 29-year-old -[place] male presenting to the ER at [facility] on 07/29/2019 with chief complaints of abdominal pain and possible UTI apparently the patient said he has been dealing with urinary tract infection for about 4 weeks and has been treated with a 10-day course of Bactrim patient describing his symptoms to having some drainage from his urethra and was initially treated for STD about 2 months ago however the patient to have any sexual activity 2 months complaining of urinary frequency and discharge notes been complaining of pain in the right lower abdominal area that been getting worse over the last 1 to 2 days before he presented hospital repeat describes the pain to be more of a dull aching at times sharp intensity almost 70) and radiation he has felt nauseated but no vomiting and no diarrhea with the symptom had the patient has been evaluated by the ER physician on arrival to the ER patient has been afebrile patient did have a normal white count there was noticed to be anemic on presentation with a hemoglobin of five-point 1 repeat was 4.7 patient urine has been positive chlamydia gonorrhea dickson PCR was negative blood cultures so far negative patient did have a CT of abdominal pelvis which shows a large mass in the right lower quadrant containing loops of the small bowel and cecum with concern for possible inflammatory bowel disease versus ruptured appendicitis patient has been treated with Zosyn infectious was consulted for further management of antibiotic therapy and need for outpatient IV antibiotics. Review of Systems Positive point has been mentioned in HPI rest of the systems are negative Past Medical History Past Medical History: No Reported History History of Any Multi-Drug Resistant Organisms: None Reported Past Surgical History: No Surgical Hx Reported Past Psychological History: No Psychological Hx Reported Smoking Status: Never smoker Past Alcohol Use History: None Reported Past Drug Use History: Marijuana Medications and Allergies Home Medications Medication Instructions Recorded Confirmed Type No Known Home Medications 07/29/19 07/29/19 History Allergies Allergy/AdvReac Type Severity Reaction Status Date / Time No Known Allergies Allergy Verified 07/29/19 20:49 Physical Exam Vitals: Vital Signs Temp Pulse Pulse Resp BP Pulse Ox 08/01/19 20:17 98 F 71 18 113/63 100 08/01/19 16:00 68 75 18 08/01/19 11:15 97.9 F 68 18 106/64 100 08/01/19 08:00 70 75 18 08/01/19 04:30 97.9 F 70 18 111/56 99 Intake and Output 08/01/19 08/01/19 08/02/19 14:59 22:59 06:59 Intake Total 600 Output Total 0 Balance 600 Intake: Intake, IV Titration 600 Amount Sodium Chloride 0.9% 1, 600 000 ml @ 75 mls/hr IV . [id number] [facility] Rx#:[id number] Output: Urine 0 Other: Voiding Method Urinal Urinal # Voids 2 GENERAL DESCRIPTION: Middle-aged male lying in bed, no distress. No tachypnea or accessory muscle of respiration use. HEENT: Shows Pallor , no scleral icterus. Oral mucous membrane is dry. NECK: Trachea central, no thyromegaly. LUNGS: Unlabored breathing. Clear to auscultation anteriorly. No wheeze or crack le. HEART: S1, S2, regular rate and rhythm. ABDOMEN: Soft, mild right lower quadrant tenderness , guarding or rigidity EXTREMITIES: No edema of feet. SKIN: No rash, no masses palpable. NEUROLOGICAL: The patient is awake, alert, oriented x3, mood and affect normal. Results CBC & Chem 7: 08/01/19 06:16 08/01/19 06:16 Labs: Abnormal Lab Results - Last 24 Hours (Table) 07/30/19 07/30/19 08/01/19 Range/Units 15:26 15:26 06:16 Hgb 7.3 L (13.0-17.5) gm/dL Hct 28.5 L (39.0-53.0) % MCV 61.2 L (80.0-100.0) fL MCH 15.6 L (25.0-35.0) pg MCHC 25.4 L (31.0-37.0) g/dL RDW 26.5 H (11.5-15.5) % Hemoglobin A1 98.2 H (96.5-97.8) % Hemoglobin A2 1.8 L (2.2-3.2) % Sodium (137-145) mmol/L Albumin (PEP) 3.17 L (3.80-4.90) g/dL Amfzv-4-Vxhpbkvdw 0.57 L (0.60-1.00) g/dL Free [place] LC, Quant 3.01 H (0.33-1.94) mg/dL 08/01/19 Range/Units 06:16 Hgb (13.0-17.5) gm/dL Hct (39.0-53.0) % MCV (80.0-100.0) fL MCH (25.0-35.0) pg MCHC (31.0-37.0) g/dL RDW (11.5-15.5) % Hemoglobin A1 (96.5-97.8) % Hemoglobin A2 (2.2-3.2) % Sodium 135 L (137-145) mmol/L Albumin (PEP) (3.80-4.90) g/dL Navhe-3-Ptxpnlycc (0.60-1.00) g/dL Free [place] LC, Quant (0.33-1.94) mg/dL Microbiology - Last 24 Hours (Table) 07/30/19 05:32 Blood Culture - Preliminary Blood No Growth after 48 hours Assessment and Plan Assessment: -patient presented hospital with right lower abdominal pain and this patient has complaining of urinary symptoms of burning with some hematuria also with a CT abdominal pelvis today showing a large complex mass in the right lower quadrant which could be ruptured appendicitis with inflammatory mass touching the bladder causing some of his urinary symptoms underlying colovesicular fistula return excluded (1) Intra-abdominal abscess Current Visit: Yes Status: Acute Code(s): K65.1 - PERITONEAL ABSCESS SNOMED Code(s): 20245460 Plan: 1-patient will benefit from surgical exclusion of this area for drainage and cultures as antibiotic alone would not be able to completely cure of this infection 2-Zosyn 3.375 g daily to continue 3-district manager in training check for outpatient antibiotic coverage before placing a PICC line We will follow on clinical condition and cultures to further adjust medication if needed Thank you for this consultation we will follow the patient along with you Time with Patient: Greater than 30
[2019-08-02] MEDS: SODIUM CHLORIDE 0.9% 1,000 ML IV SCH ×2 (07:05→20:15)
[2019-08-02] MEDS: SODIUM FERRIC GLUCONAT-SUCROSE 125 MG in SODIUM CHLORIDE 0.9% 100 ML IVPB SCH (09:35)
--- NOTE | 2019-08-02 11:12 | CT ---
EXAMINATION TYPE: CT chest w con DATE OF EXAM: 08/02/2019 COMPARISON: None HISTORY: RLL diminished ? findings on CT abdomen CT DLP: 486 mGycm, Automated exposure control for dose reduction was used. CONTRAST: Performed injected with 100 mL of Isovue 300. TECHNIQUE: Axial images were obtained at 5 mm thick sections. Reconstructed images are reviewed on [employer] computer in the coronal plane. FINDINGS: Portion of the thyroid visualized is normal. There is a 0.5 cm faint density on lung windows within the periphery of the right midlung. This is no nspecific and present on the comparison study. Series 4 image 39. No enlarged mediastinal or hilar adenopathy is evident. The ascending aorta diameter at the level o f the main pulmonary artery is 2.7 cm. The main pulmonary artery diameter at the bifurcation is 2.[address] sections are obtained through the upper abdomen. Abdomen is essentially unremarkable. IMPRESSIONS: 1. Nonspecific small peripheral based opacity in the posterior right midlung. No additional suspiciou s lung findings are evident.
--- NOTE | 2019-08-02 14:48 | P.PN ---
<Anitha Vega - Last Filed: 08/02/19 14:47> Subjective Progress Note Date: 08/02/19 CHIEF COMPLAINT: Anemia and right lower quadrant abdominal pain HISTORY OF PRESENT ILLNESS: Patient examined at the bedside. He denies abdominal pain. Tolerating diet. Denies nausea or vomiting. Passing flatus. PHYSICAL EXAM: VITALS: Reviewed CONSTITUTIONAL: Well developed healthy-appearing male and in no acute distress. EYES: Conjuctivae without sclera icterus. Pupils are equally round and reactive to light. Extraocular movements grossly intact. HEAD, EARS, NOSE, THROAT: Moist buccal mucosa. Head is atraumatic, normocephalic. Hears conversational speech. No nasal drainage. Good dentition. NECK: Supple. No JV distention. No thyroidomegaly. RESPIRATORY: Non-labored respirations and equal bilateral excursions. No gross wheezes. CARDIOVASCULAR: Regular rate and rhythm. Palpable 2+ radial pulses. ABDOMEN: Soft. Nondistended. Mild tenderness on palpation of right lower quadrant. MUSCULOSKELETAL: Nail and fingers with good capillary refill. SKIN: Warm and well perfused with good skin turgor. NEUROLOGIC: Cranial nerves II through XII grossly intact. Sensation upper and extremities intact. No focal or lateralizing signs. PSYCH: Appropriate affect. Alert and oriented to person, place and time. Displays appropriate insight. ASSESSMENT: 1. Right lower quadrant phlegmon of unclear etiology, suspect secondary to ruptured appendicitis 2. Anemia, hemoglobin 4.8 upon admission 3. Hematuria 4. Ruptured appendicitis with phelgmon 5. 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 Continue iron infusions Continue diet as tolerated Continue antibiotics. Infectious disease on consult Midline ordered for outpatient IV antibiotics Possible discharge tomorrow Nurse practitioner note has been reviewed by physician. Signing provider agrees with the documented findings, assessment, and plan of care. Objective - Vital Signs Vital signs: Vital Signs Temp 97.1 F L 08/02/19 11:12 Pulse 67 08/02/19 11:12 Resp 18 08/02/19 11:12 BP 124/57 08/02/19 11:12 Pulse Ox 100 08/02/19 11:12 Intake & Output 08/01/19 08/02/19 08/02/19 18:59 06:59 18:59 Intake Total 600 1090 Output Total 0 Balance 600 1090 Intake: Intake, IV Titration 600 100 Amount Piperacillin-Tazobactam 3 100 .375 gm In Sodium Chloride 0.9% 100 ml @ 25 mls/hr IVPB Q8HR JAILENE Rx# :[id number] Sodium Chloride 0.9% 1, 600 000 ml @ 75 mls/hr IV . [id number] JAILENE Rx#:[id number] Oral 990 Output: Urine 0 Other: Voiding Method Urinal Urinal Urinal # Voids 2 2 - Labs CBC & Chem 7: 08/01/19 06:16 08/01/19 06:16 Labs: Microbiology - Last 24 Hours (Table) 07/30/19 05:32 Blood Culture - Preliminary Blood No Growth after 72 hours <Ester Walden - Last Filed: 08/02/19 17:02> Subjective CLEARANCE REP supervised by me and agree with above. I personally spoke to infectious disease provider regarding care plan. Patient has extremely large phlegmon from ruptured appendicitis which will elicit complicated surgery including bowel resection. This phlegmon will likely improve with interim antibiotics. Patient also has lack of insurance which social work has been obtained. For optimal surgery and recovery, recommend IV antibiotics for several weeks to address his phlegmon such that surgery in the future may result in appendectomy versus partial colectomy and small bowel resection with his current phlegmon Objective - Vital Signs Vital signs: Vital Signs Temp 97.1 F L 08/02/19 11:12 Pulse 67 08/02/19 11:12 Resp 18 08/02/19 11:12 BP 124/57 08/02/19 11:12 Pulse Ox 100 08/02/19 11:12 Intake & Output 08/01/19 08/02/19 08/02/19 18:59 06:59 18:59 Intake Total 600 1090 Output Total 0 Balance 600 1090 Intake: Intake, IV Titration 600 100 Amount Piperacillin-Tazobactam 3 100 .375 gm In Sodium Chloride 0.9% 100 ml @ 25 mls/hr IVPB Q8HR JAILENE Rx# :[id number] Sodium Chloride 0.9% 1, 600 000 ml @ 75 mls/hr IV . [id number] JAILENE Rx#:[id number] Oral 990 Output: Urine 0 Other: Voiding Method Urinal Urinal Urinal # Voids 2 2 - Labs CBC & Chem 7: 08/01/19 06:16 08/01/19 06:16 Labs: Microbiology - Last 24 Hours (Table) 07/30/19 05:32 Blood Culture - Preliminary Blood No Growth after 72 hours Assessment and Plan (1) Hematuria Current Visit: Yes Status: Acute Code(s): R31.9 - HEMATURIA, UNSPECIFIED SNOMED Code(s): 22086475 (2) Severe anemia Current Visit: Yes Status: Acute Code(s): D64.9 - ANEMIA, UNSPECIFIED SNOMED Code(s): 752888323 (3) Iron deficiency anemia Current Visit: Yes Status: Acute Code(s): D50.9 - IRON DEFICIENCY ANEMIA, UNSPECIFIED SNOMED Code(s): 66469847 (4) Penile discharge Current Visit: Yes Status: Acute Code(s): R36.9 - URETHRAL DISCHARGE, UNSPECIFIED SNOMED Code(s): 6998123 (5) Right lower quadrant abdominal mass Current Visit: Yes Status: Acute Code(s): R19.03 - RIGHT LOWER QUADRANT ABDOMINAL SWELLING, MASS AND LUMP SNOMED Code(s): 704736788 (6) Ruptured appendicitis Current Visit: Yes Status: Acute Code(s): K35.32 - ACUTE APPENDICITIS WITH PERF AND LOC PERITONITIS, W/O ABSCS SNOMED Code(s): 43797935
[2019-08-02 16:38] LABS: Anisocytosis Marked; Basophils # (A) 0.1 k/uL (0-0.2); Basophils % (A) 1 %; Eosinophils # (A) 0.3 k/uL (0-0.7); Eosinophils % (A) 4 %; HGB 7.8 gm/dL (13.0-17.5); Hypochromasia Marked; Lymphocytes # (A) 1.9 k/uL (1.0-4.8); Lymphocytes % (A) 28 %; MCH 16.4 pg (25.0-35.0); MCHC 24.4 g/dL (31.0-37.0); Mean Platelet Volume 13.1; Microcytosis Marked; Monocytes # (A) 0.3 k/uL (0-1.0); Monocytes % (A) 5 %; Neutrophils # (A) 4.1 k/uL (1.3-7.7); Neutrophils % (A) 60 %; Platelet Count 452 k/uL (150-450); Poikilocytosis Marked; RBC 4.76 m/uL (4.30-5.90); WBC 6.8 k/uL (3.8-10.6)
[2019-08-02 17:05] LABS: MCV 67.1 fL (80.0-100.0)
[2019-08-02 21:15] VITALS: RESP 16
--- NOTE | 2019-08-02 21:54 | P.PN ---
Subjective Progress Note Date: 08/02/19 Principal diagnosis: Anemia and RLQ abnormality Awaiting cbc today he is feeling good, no new complaints Objective - Vital Signs Vital signs: Vital Signs Temp 97.1 F L 08/02/19 11:12 Pulse 67 08/02/19 11:12 Resp 18 08/02/19 11:12 BP 124/57 08/02/19 11:12 Pulse Ox 100 08/02/19 11:12 Intake & Output 08/01/19 08/02/19 08/02/19 18:59 06:59 18:59 Intake Total 600 1090 Output Total 0 Balance 600 1090 Intake: Intake, IV Titration 600 100 Amount Piperacillin-Tazobactam 3 100 .375 gm In Sodium Chloride 0.9% 100 ml @ 25 mls/hr IVPB Q8HR JAILENE Rx# :[id number] Sodium Chloride 0.9% 1, 600 000 ml @ 75 mls/hr IV . [id number] JAILENE Rx#:[id number] Oral 990 Output: Urine 0 Other: Voiding Method Urinal Urinal Urinal # Voids 2 2 - Exam Gen: Alert and Oriented, FREDI Neck Supple Trachea midline No palpable adenopathy Heart: Tachy, Reg Abdomen: RLQ mass palpable tender Lungs: No increased effort, CTA, shallow inspirations Ext: No edema Skin: No lesions or rash - Labs CBC & Chem 7: 08/02/19 06:19 08/01/19 06:16 Labs: Microbiology - Last 24 Hours (Table) 07/30/19 05:32 Blood Culture - Preliminary Blood No Growth after 72 hours Assessment and Plan Plan: Assessment and Recommendations: Microcytic Hypochromic Anemia: - Transfuse for hemoglobin less than 7 - There is a chronic iron deficiency noted in the results of his lab values, this maybe related to urinary versus GI blood loss. Recommend further evaluation by Urology and Full GI evaluation. - Parental Iron status post 06/17 - Hemoglobin Electrophoresis negative for hemaglobinopathy consistent with iron deficiency. RLQ Mass found on CT scan: - Abscess versus other - Reviewed repeat CT abdomen - General Surgery is following - Spleen 13.5cm Intense Night Sweats: - Subjective Fevers versus other - Improving - Objective afebrile - Urine and blood cultures neg Plan: - Daily CBC - Per primary team planning for antibiotics and close monitor, then reassess - Can follow-up after discharge for intravenous iron if needed prn
--- NOTE | 2019-08-02 23:16 | PN ---
PROGRESS NOTE DATE OF SERVICE: 08/02/2019 REASON FOR FOLLOWUP: Abdominal abscess. INTERVAL HISTORY: The patient is currently afebrile, has been breathing comfortably. He denies having any chest pain or any cough. Abdominal pain is currently controlled. No nausea, no vomiting. PHYSICAL EXAMINATION: Blood pressure 124/57 with a pulse of 67, temperature 97.1. He is 100% on room air. General description is a middle-aged male lying in bed in no distress. RESPIRATORY SYSTEM: Unlabored breathing, clear to auscultation anteriorly. HEART: S1, S2. Regular rate and rhythm. ABDOMEN: Soft, no tenderness. LABS: Hemoglobin 7.8, white count 6.8. Blood culture has been negative. DIAGNOSTIC IMPRESSION AND PLAN: Patient with abdominal abscess possibly ruptured appendicitis. Covered with Zosyn. Option will be Rocephin 2 grams daily, oral Flagyl for 3 weeks followed by Surgery. This has been discussed in detail with the surgeon. Continue with supportive care. MMODL / IJN: [id number] /
[2019-08-03] MEDS: PIPERACILLIN-TAZOBACTAM 3.375 GM in SODIUM CHLORIDE 0.9% 100 ML IVPB SCH (00:02)
[2019-08-03 06:17] LABS: Anisocytosis Marked; Basophils # (A) 0.1 k/uL (0-0.2); Basophils % (A) 1 %; Eosinophils # (A) 0.2 k/uL (0-0.7); Eosinophils % (A) 3 %; HCT 31.4 % (39.0-53.0); Hypochromasia Marked; Lymphocytes # (A) 1.7 k/uL (1.0-4.8); Lymphocytes % (A) 24 %; MCH 16.6 pg (25.0-35.0); MCHC 25.5 g/dL (31.0-37.0); MCV 65.1 fL (80.0-100.0); Mean Platelet Volume 6.6; Microcytosis Marked; Monocytes # (A) 0.3 k/uL (0-1.0); Monocytes % (A) 5 %; Neutrophils # (A) 4.6 k/uL (1.3-7.7); Neutrophils % (A) 66 %; Platelet Count 367 k/uL (150-450); Poikilocytosis Marked; RBC 4.82 m/uL (4.30-5.90)
[2019-08-03 06:34] LABS: RDW 29.5 % (11.5-15.5)
[2019-08-03] MEDS: SODIUM CHLORIDE 0.9% 1,000 ML IV SCH (08:06)
[2019-08-03 08:16] LABS: Ovalocytes Present; Polychromasia Present
[2019-08-03 08:19] LABS: RBC Fragments Present
[2019-08-03] MEDS: SODIUM FERRIC GLUCONAT-SUCROSE 125 MG in SODIUM CHLORIDE 0.9% 100 ML IVPB SCH (09:16)
--- NOTE | 2019-08-03 10:26 | P.DS ---
Providers Date of admission: 07/29/19 21:18 Expected date of discharge: 08/03/19 Attending physician: Ester Walden Consults: 07/29/19 21:49 Consult Physician Stat Consulting Provider: Joel Biswas Consult Reason/Comments: Acute anemia Do you want consulting provider notified?: Already Contacted 07/30/19 08:47 Consult Physician Routine Consulting Provider: Raz Inman Consult Reason/Comments: UTI fistula Do you want consulting provider notified?: Yes 07/30/19 10:38 Consult Physician Routine Consulting Provider: Agustin Leslie Consult Reason/Comments: Anemia 4.8, hemoglobinopathy work-up Do you want consulting provider notified?: Yes 07/31/19 09:44 Consult Physician Routine Consulting Provider: Marcelino Peterson Consult Reason/Comments: Antibiotic management ruptured appendix with phlegmon Do you want consulting provider notified?: Yes Primary care physician: Stated None Hospital Course: The patient is a 29-year-old previously healthy male who presents with almost 2 month history of troubles with urinating including discharge from the penis. He also reports occasional ache of the right lower quadrant. Baseline he does not have any medical care. Reports being healthy all his life. Never seen a doctor before. 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 He has been cautious about what he eats and has avoided sugars, processed foods as well. He does report occasional blood in his urine. He reports fullness along the right lower quadrant that has been progressive over the past several weeks. He is [place]. He was living in [place] and returned to [place] less than 1-2 weeks ago. He denies any pre-existing fatigue. He is hungry. He presented to the emergency room with anemia, hemoglobin of 4.8. Hgb is up from 4.8 to 6.8 after 2 units of blood. "I feel fine." No reports of abdominal pain at this time. He has been seen by urology. His main concern includes blood and sediment in his urine including need to urinate. He is admitted secondary to anemia on presentation of 4.7, right lower quadrant abdominal pain including abnormal computed tomography scan demonstrating phlegmon of the right lower quadrant. The patient was evaluated by urology during hospitalization. No further intervention was recommended from their standpoint. Patient was also evaluated by hematology during hospitalization. He received IV iron. Patients phlegmon of the right lower quadrant is suspected to be secondary to ruptured appendicitis. The patient was followed by infectious disease as well during hospitalization. The patient received a midline IV catheter. He will be discharged home on outpatient IV antibiotics in the form of Rocephin for several weeks to address his phlegmon such that surgery in the future may result in appendectomy versus partial colectomy and small bowel resection with his current phlegmon. The patient was deemed stable for discharge home today per Dr. Walden. He will begin IV antibiotic infusions tomorrow outpatient at the [facility]. He is to follow up on an outpatient basis. Please see EMR for further hospital course details. Discharge Diagnosis 1. Right lower quadrant phlegmon of unclear etiology, suspect secondary to ruptured appendicitis 2. Anemia, hemoglobin 4.8 upon admission 3. Hematuria 4. Ruptured appendicitis with phelgmon 5. Severe iron deficiency anemia Nurse practitioner note has been reviewed by physician. Signing provider agrees with the documented findings, assessment, and plan of care. Patient Condition at Discharge: Stable Plan - Discharge Summary Discharge Rx Participant: Yes New Discharge Prescriptions: New Ibuprofen [Motrin] 600 mg PO Q8HR PRN #30 tab PRN Reason: Pain Acetaminophen Tab [Tylenol Tab] 650 mg PO Q4H PRN #30 tablet PRN Reason: Pain Discharge Medication List Acetaminophen Tab [Tylenol Tab] 650 mg PO Q4H PRN #30 tablet 08/03/19 [Rx] Ibuprofen [Motrin] 600 mg PO Q8HR PRN #30 tab 08/03/19 [Rx] Follow up Appointment(s)/Referral(s): Agustin Leslie MD [STAFF PHYSICIAN] - 2 Weeks Raz Inman MD [STAFF PHYSICIAN] - As Needed Ester Walden MD [STAFF PHYSICIAN] - 08/09/19 None,Stated [Primary Care Provider] - 1-2 days Patient Instructions/Handouts: Appendicitis (GEN), How to Care for Your Midline Catheter (DC) Activity/Diet/Wound Care/Special Instructions: Starting 08/04/2019 at 11:00AM for your daily IV antibiotic infusions. Please come to [facility]'s 3rd floor [facility] procedures. FLAGYL RX IN PAPER CHART. PLEASE GIVE TO PATIENT AT DISCHARGE
[2019-08-03 11:29] VITALS: BP 122/72; PULSE 99; TEMP 98.4
== END 2019-08-03 13:39 | disposition home or self-care (01) | DRG 372 ==
LOC: EC 19:00 → 2SICU 21:18 → 5NMEDONC 07-31 10:06
PROVIDERS: ADMIT Surgery Plastic and Reconstructive Surgery; ATTEND Surgery Plastic and Reconstructive Surgery
PROC: 30233N1 Transfusion of Nonautologous Red Blood Cells into Peripheral Vein, Percutaneous Approach (ICD-10-PCS; principal; 2019-07-29)
PROC: 05HF33Z Insertion of Infusion Device into Left Cephalic Vein, Percutaneous Approach (ICD-10-PCS; 2019-08-02 09:00)
DX: K35.33 Acute appendicitis with perforation, localized peritonitis, and gangrene, with abscess (principal); N39.0 Urinary tract infection, site not specified; D62 Acute posthemorrhagic anemia; J98.11 Atelectasis; Z11.59 Encounter for screening for other viral diseases; R31.0 Gross hematuria; R00.0 Tachycardia, unspecified; R36.9 Urethral discharge, unspecified; R16.1 Splenomegaly, not elsewhere classified; R39.15 Urgency of urination; R79.89 Other specified abnormal findings of blood chemistry; Z87.440 Personal history of urinary (tract) infections
CPT/HCPCS: 36410; 36415; 36430; 71260; 74177; 76937; 80048; 80053; 81001; 82105; 82150; 82272; 82525; 82607; 82728; 82746; 83010; 83021; 83540; 83550; 83605; 83615; 83690; 83883; 84145; 84165; 84702; 85025; 85045; 85384; 85610; 85730; 86140; 86334; 86850; 86900; 86901; 86920; 87040; 87086; 87491; 87591; 87635; 96360; 96365; 99291

== ENCOUNTER 2019-08-31 17:16 | Inpatient (IN) | payer OTHER ==
--- NOTE | 2019-08-31 18:32 | ED ---
Abdominal Pain HPI - General Chief Complaint: Abdominal Pain Stated Complaint: Abd pain Time Seen by Provider: 08/31/19 17:21 Source: patient Mode of arrival: ambulatory Limitations: no limitations - History of Present Illness Initial Comments: Patient is a 29-year-old male, with recent history of right lower quadrant mass and anemia, presenting to the emergency Department with complaints of right lower quadrant pain. He is a patient of Dr. Walden who he saw yesterday in her office and told the patient come to the ER today. He is set to have surgery in a few days to remove a right lower quadrant abdominal mass. He states his pain has been mild to moderate. He just finished a course of Flagyl as well as Rocephin last week. He denies any fever, chills, nausea, vomiting. He denies chest pain, shortness of breath. He states he does have dysuria which he has had all along. He admits to regular bowel movements. He denies any other abdo maurice surgeries. He has no further complaints at this time. Upon arrival to the ER, his vitals are stable. - Related Data Home Medications Medication Instructions Recorded Confirmed No Known Home Medications 08/31/19 08/31/19 Allergies Allergy/AdvReac Type Severity Reaction Status Date / Time No Known Allergies Allergy Verified 08/31/19 17:32 Review of Systems ROS Statement: Those systems with pertinent positive or pertinent negative responses have been documented in the HPI. ROS Other: All systems not noted in ROS Statement are negative. Past Medical History Past Medical History: No Reported History Additional Past Medical History / Comment(s): ABDOMINAL ABCESS-RECEIVING ROCEPHIN BEFORE SURGERY PLANNED TO REMOVE. History of Any Multi-Drug Resistant Organisms: None Reported Past Surgical History: Appendectomy Past Psychological History: No Psychological Hx Reported Smoking Status: Current every day smoker Past Alcohol Use History: None Reported Past Drug Use History: None Reported General Exam - General Exam Comments Initial Comments: GENERAL: Well-appearing, well-nourished and in no acute distress. HEAD: Atraumatic, normocephalic. EYES: Pupils equal round and reactive to light, extraocular movements intact, sclera anicteric, conjunctiva are normal. ENT: TMs normal, nares patent, oropharynx clear without exudates. Moist mucous membranes. NECK: Normal range of motion, supple without lymphadenopathy or JVD. LUNGS: Breath sounds clear to auscultation bilaterally and equal. No wheezes rales or rhonchi. HEART: Regular rate and rhythm without murmurs, rubs or gallops. ABDOMEN: Right lower quadrant hardened mass on palpation, no other pain on the abdomen. Normoactive bowel sounds. No guarding, no rebound. No masses appreciated. : Deferred EXTREMITIES: Normal range of motion, no pitting or edema. No clubbing or cyanosis. NEUROLOGICAL: Cranial nerves II through XII grossly intact. Normal speech, normal gait. PSYCH: Normal mood, normal affect. SKIN: Warm, Dry, normal turgor, no rashes or lesions noted. Limitations: no limitations Course Vital Signs 08/31/19 08/31/19 17:17 19:51 Temperature 98.4 F Pulse Rate 102 H 79 Respiratory 20 18 Rate Blood Pressure 112/64 114/63 O2 Sat by Pulse 100 100 Oximetry Medical Decision Making - Medical Decision Making Patient is a 29-year-old male here for a right lower quadrant abdominal mass. Patient was sent into the ER by Dr. Walden. His vitals are stable the ER. O n exam, patient has a right lower quadrant harden abdominal mass. Lab work shows a hemoglobin of 9.0 which has improved from acute anemia one month ago. Rest of lab work shows no acute abnormalities. Patient's urine is positive for nitrates, bacteria and WBC clumps. CT of the abdomen today again shows a walled off abscess of the right lower quadrant, may faver neoplasm or lymphoma. I did speak with Dr. Morris who agrees to admission. Patient will be started on Rocephin for positive UTI. Blood and urine cultures pending. Patient is in agreement with this plan of care. Case discussed with Dr. Pat. - Lab Data Result diagrams: 08/31/19 18:25 08/31/19 18:25 Lab Results 08/31/19 08/31/19 08/31/19 Range/Units 18:25 18:25 18:25 WBC 6.7 (3.8-10.6) k/uL RBC 5.32 (4.30-5.90) m/uL Hgb 9.0 L (13.0-17.5) gm/dL Hct 34.4 L (39.0-53.0) % MCV 64.6 L (80.0-100.0) fL MCH 16.9 L (25.0-35.0) pg MCHC 26.2 L (31.0-37.0) g/dL RDW 22.6 H (11.5-15.5) % Plt Count 295 (150-450) k/uL Neutrophils % 73 % Lymphocytes % 17 % Monocytes % 5 % Eosinophils % 3 % Basophils % 1 % Neutrophils # 4.9 (1.3-7.7) k/uL Lymphocytes # 1.2 (1.0-4.8) k/uL Monocytes # 0.3 (0-1.0) k/uL Eosinophils # 0.2 (0-0.7) k/uL Basophils # 0.1 (0-0.2) k/uL Hypochromasia Marked Poikilocytosis Slight Anisocytosis Moderate Microcytosis Marked PT 10.8 (9.0-12.0) sec INR 1.0 (<1.2) APTT 28.2 (22.0-30.0) sec Sodium (137-145) mmol/L Potassium (3.5-5.1) mmol/L Chloride (98-107) mmol/L Carbon Dioxide (22-30) mmol/L Anion Gap mmol/L BUN (9-20) mg/dL Creatinine (0.66-1.25) mg/dL Est GFR (CKD-EPI)AfAm (>60 ml/min/1.73 sqM) Est GFR (CKD-EPI)NonAf (>60 ml/min/1.73 sqM) Glucose (74-99) mg/dL Calcium (8.4-10.2) mg/dL Total Bilirubin (0.2-1.3) mg/dL AST (17-59) U/L ALT (4-49) U/L Alkaline Phosphatase (38-126) U/L Total Protein (6.3-8.2) g/dL Albumin (3.5-5.0) g/dL Urine Color Yellow Urine Appearance Turbid (Clear) Urine pH 6.0 (5.0-8.0) Ur Specific [place] 1.022 (1.001-1.035) Urine Protein 2+ H (Negative) Urine Glucose (UA) Negative (Negative) Urine Ketones Negative (Negative) Urine Blood Large H (Negative) Urine Nitrite Positive (Negative) Urine Bilirubin Negative (Negative) Urine Urobilinogen <2.0 (<2.0) mg/dL Ur Leukocyte Esterase Large H (Negative) Urine RBC >182 H (0-5) /hpf Urine WBC >182 H (0-5) /hpf Urine WBC Clumps Many H (None) /hpf Ur Squamous Epith Cells 2 (0-4) /hpf Urine Bacteria Moderate H (None) /hpf Urine Mucus Many H (None) /hpf 08/31/19 Range/Units 18:25 WBC (3.8-10.6) k/uL RBC (4.30-5.90) m/uL Hgb (13.0-17.5) gm/dL Hct (39.0-53.0) % MCV (80.0-100.0) fL MCH (25.0-35.0) pg MCHC (31.0-37.0) g/dL RDW (11.5-15.5) % Plt Count (150-450) k/uL Neutrophils % % Lymphocytes % % Monocytes % % Eosinophils % % Basophils % % Neutrophils # (1.3-7.7) k/uL Lymphocytes # (1.0-4.8) k/uL Monocytes # (0-1.0) k/uL Eosinophils # (0-0.7) k/uL Basophils # (0-0.2) k/uL Hypochromasia Poikilocytosis Anisocytosis Microcytosis PT (9.0-12.0) sec INR (<1.2) APTT (22.0-30.0) sec Sodium 137 (137-145) mmol/L Potassium 4.0 (3.5-5.1) mmol/L Chloride 102 (98-107) mmol/L Carbon Dioxide 28 (22-30) mmol/L Anion Gap 7 mmol/L BUN 11 (9-20) mg/dL Creatinine 0.74 (0.66-1.25) mg/dL Est GFR (CKD-EPI)AfAm >90 (>60 ml/min/1.73 sqM) Est GFR (CKD-EPI)NonAf >90 (>60 ml/min/1.73 sqM) Glucose 115 H (74-99) mg/dL Calcium 8.4 (8.4-10.2) mg/dL Total Bilirubin 0.1 L (0.2-1.3) mg/dL AST 25 (17-59) U/L ALT 12 (4-49) U/L Alkaline Phosphatase 81 (38-126) U/L Total Protein 6.8 (6.3-8.2) g/dL Albumin 3.5 (3.5-5.0) g/dL Urine Color Urine Appearance (Clear) Urine pH (5.0-8.0) Ur Specific [place] (1.001-1.035) Urine Protein (Negative) Urine Glucose (UA) (Negative) Urine Ketones (Negative) Urine Blood (Negative) Urine Nitrite (Negative) Urine Bilirubin (Negative) Urine Urobilinogen (<2.0) mg/dL Ur Leukocyte Esterase (Negative) Urine RBC (0-5) /hpf Urine WBC (0-5) /hpf Urine WBC Clumps (None) /hpf Ur Squamous Epith Cells (0-4) /hpf Urine Bacteria (None) /hpf Urine Mucus (None) /hpf Disposition Clinical Impression: Right lower quadrant abdominal mass, UTI (urinary tract infection), Intra- abdominal abscess Disposition: ADMITTED IP TO THIS [facility] Condition: Stable Decision Date: 08/31/19 Decision Time: 19:27
[2019-08-31 18:52] LABS: ALT 12 U/L (4-49); AST 25 U/L (17-59); African American GFR (CKD) >90 (>60 ml/min/1.73 sqM); Albumin 3.5 g/dL (3.5-5.0); Alkaline Phosphatase 81 U/L (38-126); Anion Gap 7 mmol/L; Appearance,Urine Turbid (Clear); Bacteria,Urine Moderate /hpf; Bilirubin,Urine Negative (Negative); Blood Urea Nitrogen 11 mg/dL (9-20); Blood,Urine Large (Negative); Calcium 8.4 mg/dL (8.4-10.2); Carbon Dioxide 28 mmol/L (22-30); Chloride 102 mmol/L (98-107); Color,Urine Yellow; Glucose 115 mg/dL (74-99); Glucose,Urine (UA) Negative (Negative); Ketones,Urine Negative (Negative); Leukocyte Esterase,Urine Large (Negative); Mucus,Urine Many /hpf; Nitrite,Urine Positive (Negative); Non-African American GFR(CKD) >90 (>60 ml/min/1.73 sqM); Protein,Urine 2+ (Negative); RBC,Urine >182 /hpf (0-5); Sodium 137 mmol/L (137-145); Specific Gravity,Urine 1.022 (1.001-1.035); Squamous Epithelial Cell,Urine 2 /hpf (0-4); Total Bilirubin 0.1 mg/dL (0.2-1.3); Total Protein 6.8 g/dL (6.3-8.2); Urobilinogen,Urine <2.0 mg/dL (<2.0); WBC,Urine >182 /hpf (0-5)
[2019-08-31 18:53] LABS: Partial Thromboplastin Time 28.2 sec (22.0-30.0); Prothrombin Time 10.8 sec (9.0-12.0)
[2019-08-31 19:11] LABS: Anisocytosis Moderate; Basophils # (A) 0.1 k/uL (0-0.2); Basophils % (A) 1 %; Eosinophils # (A) 0.2 k/uL (0-0.7); Eosinophils % (A) 3 %; HCT 34.4 % (39.0-53.0); Hypochromasia Marked; Lymphocytes # (A) 1.2 k/uL (1.0-4.8); Lymphocytes % (A) 17 %; MCH 16.9 pg (25.0-35.0); MCHC 26.2 g/dL (31.0-37.0); MCV 64.6 fL (80.0-100.0); Mean Platelet Volume 6.4; Microcytosis Marked; Monocytes # (A) 0.3 k/uL (0-1.0); Monocytes % (A) 5 %; Neutrophils # (A) 4.9 k/uL (1.3-7.7); Neutrophils % (A) 73 %; Platelet Count 295 k/uL (150-450); Poikilocytosis Slight; RBC 5.32 m/uL (4.30-5.90); RDW 22.6 % (11.5-15.5); WBC 6.7 k/uL (3.8-10.6)
--- NOTE | 2019-08-31 19:18 | CT ---
EXAMINATION TYPE: CT abdomen pelvis w con DATE OF EXAM: 08/31/2019 COMPARISON: CT abdomen and pelvis August 01, 2019 and July 29, 2019 HISTORY: RLQ pain with Prior history of mass. CT DLP: 712.8 mGycm, Automated Exposure Control for Dose Reduction was Utilized. CONTRAST: CT scan of the abdomen and pelvis is performed without oral and with IV Contrast, patient injected wi th 100 mL of Isovue 300. FINDINGS: LUNG BASES: Increasing patchy posterior linear left basilar linear scarring and/or atelectasis. LIVER/GB: Contracted gallbladder incidentally noted. Liver size stable and upper limits of normal. PANCREAS: No significant abnormality is seen. SPLEEN: Stable mild splenomegaly at 13.2 cm long axis axial image 18.. ADRENALS: No significant abnormality is seen. KIDNEYS: Symmetric cortical medullary uptake and excretion without concerning solid or cystic renal m ass or hydronephrosis seen bilaterally. Persistent poorly distended bladder with mild to moderate irr egular wall thickening. BOWEL: Suboptimal evaluation of bowel without enteric contrast. No new suspicious small or large radha l dilatation. Debris-filled stomach suggests recent meal ingestion. Persistent abnormal low dense str ucture or lesion in the right lower quadrant and upper to mid pelvis with indistinct fat plane from t he superior aspect of the bladder wall similar to last 2 studies. Local mass effect with lesion measu ring 9.6 cm transversely by 6.8 cm AP diameter by 11 cm craniocaudal diameter axial image 58 and shad nal image 29 is redemonstrated. Corresponding to the oral enhanced CT there is central small bowel lo op with air-fluid level axial image 55. There is mild/moderate surrounding fluid and/or fat stranding redemonstrated. This lesion appears contiguous with the right colon superior to this. PROSTATE/SEMINAL VESICLES: No gross abnormality seen. LYMPH NODES: No greater than 1cm abdominal or pelvic lymph nodes are appreciated. OSSEOUS STRUCTURES: No significant abnormality is seen. OTHER: No significant additional abnormality is seen. IMPRESSION: No significant change from most recent CT. Finding better evaluated on more recent CT th at had oral contrast. I favor neoplasm such as GIST or lymphoma. Encapsulated walled off abscess cierra ins a differential though felt less likely. Sequela of severe colitis also needs to be considered. Co nsider surgical exploration. Persistent local mass effect. Persistent reactive changes suspected on t he urinary bladder. Correlate clinically.
[2019-08-31] MEDS ORDERED: KETOROLAC 30 MG/ML 1 ML VIAL IVP PRN (19:24)
[2019-08-31] MEDS ORDERED: ONDANSETRON 4 MG/2 ML VIAL IVP PRN (19:24)
[2019-08-31] MEDS ORDERED: MORPHINE SULFATE 4 MG/ML SYRINGE IV PRN (19:24)
[2019-08-31] MEDS ORDERED: ACETAMINOPHEN TAB 325 MG TAB PO PRN (19:24)
[2019-08-31] MEDS ORDERED: NALOXONE 0.4 MG/ML 1 ML VIAL IV PRN (19:24)
[2019-08-31] MEDS: SODIUM CHLORIDE 0.9% 1,000 ML IV SCH (22:19)
[2019-09-01 01:02] LABS: Glucose,Whole Blood 184 mg/dL (75-99)
[2019-09-01 07:36] LABS: Prothrombin Time 10.5 sec (9.0-12.0)
--- NOTE | 2019-09-01 08:58 | P.GSHP ---
History of Present Illness H&P Date: 09/01/19 CHIEF COMPLAINT: Right lower quadrant abdominal mass HISTORY OF PRESENT ILLNESS: The patient is a 29-year-old Who 1 month ago presented with a history of a large intra-abdominal mass the right lower quadrant over 15 cm of acute anemia hemoglobin less than 5.0. He was admitted to the ICU at that time for blood transfusions. Additional consultants including neurology, Infectious disease,critical care parts specialist, adzing and boring machine feeder were obtained. CT of the abdomen pelvis at that time was suspicious for inflammatory processes from perforated appendicitis. He was treated with IV antibiotics for about 1 month and had discontinued his treatment 1 week ago. He presented to the office on follow-up noting new changes including sediments from his urine and reported decreased firmness of the right lower quadrant.He denied any fatigue. He was tolerating diet. No reports of blood in stools. He pr esented to the ER secondary to his history of right lower quadrant abdominal mass with new changes in his urine. PAST MEDICAL HISTORY: See list. PAST SURGICAL HISTORY: See list. MEDICATIONS: See list. ALLERGIES: See list. SOCIAL HISTORY: See list. FAMILY HISTORY: See list. REVIEW OF ORGAN SYSTEMS: CONSTITUTIONAL: No fevers or chills. No recent weight loss. EYES: Denies any trouble with vision. No glasses. HEENT: No difficulties with hearing. No nosebleeds. No difficulty swallowing. RESPIRATORY: Denies pneumonia. Denies any troubles with breathing or dyspnea on exertion. CARDIOVASCULAR: Denies any chest pain, palpitations, or recent heart attacks. GASTROINTESTINAL: Denies fatty food intolerance. Denies change in bowel habits and gas bloat. GENITOURINARY: Has blood in urine and increased urinary frequency. Reports that her mentation and his urine. NEUROLOGICAL: Denies any numbness or tingling along the distal extremities. No seizure disorders or headaches. MUSCULOSKELETAL: Denies any back pain, stiffness or joint arthritis. SKIN: No current skin cancer. No rash. PSYCHIATRIC: Denies current depression or suicidal thoughts. ENDOCRINE: Denies current thyroid disorders. Denies any blood sugar glucose intolerance. HEME/LYMPHATIC: Denies any lumps and bumps around the neck. No recent deep venous thrombosis. History of acute anemia status post blood transfusions 2 one month ago for hemoglobin 4.8 ALLERGY/IMMUNOLOGY: No immunoglobulin therapy. No immune deficiencies. BREAST: Denies current breast lumps, pain or nipple discharge. PHYSICAL EXAM: VITALS: Reviewed CONSTITUTIONAL: Well developed healthy-appearing male and in no acute distress. EYES: Conjuctivae without sclera icterus. Pupils are equally round and reactive to light. Extraocular movements grossly intact. HEAD, EARS, NOSE, THROAT: Moist buccal mucosa. Head is atraumatic, normocephal ic. Hears conversational speech. No nasal drainage. Good dentition. NECK: Supple. No JV distention. No thyroidomegaly. RESPIRATORY: Non-labored respirations and equal bilateral excursions. No gross wheezes. CARDIOVASCULAR: Regular rate and rhythm. Extremities without moderate edema. Palpable 2+ radial pulses. ABDOMEN: Soft. Non-tender. Nondistended. Palpated fullness over 8 cm right lower quadrant. No skin changes. LYMPH: No neck lymphadenopathy. No axillary lymphadenopathy. MUSCULOSKELETAL: Gait within normal limits. Range of motion bilateral upper extremities within normal limits. Nail and fingers with good capillary refill. SKIN: Warm and well perfused with good skin turgor. NEUROLOGIC: Cranial nerves II through XII grossly intact. Sensation upper and extremities intact. No focal or lateralizing signs. PSYCH: Appropriate affect. Alert and oriented to person, place and time. Displays appropriate insight. CLINCAL LABS: Reviewed. WBC on presentation 6.8An normal. Hemoglobin 9.0 down from 9.6 upon last hospitalization. IMAGING: Independently reviewed CT of the abdomen and pelvis without Oralcontrast demonstrated persistent mass along the right lower quadrant unchan ged from previous computed tomography scan 1 month ago. Questionable fistulization between the mass and the bladder wall right side RADIOLOGY: Report reviewed CT of the endopelvis now suspicious for features of malignancy between lymphoma versus gastrointestinal stromal tumor. ASSESSMENT: 1. Right lower quadrant mass, possible malignancy 2. Bladder fistulization PLAN: 1. Despite antibiotics, mass along the right lower quadrant is of same size from a month ago and confirmed with speaking with radiologist this morning. Findings are likely of malignancy such as lymphoma for which surgical excision may be contraindicated. 2. I discussed with the patient the possibility of malignancy for which a tissue biopsy will help tailor treatment. I'm arranging for consultation to interventional radiology for Biopsy of the right lower quadrant mass. 3. Consultation to oncology for right lower quadrant mass for likely lymphoma versus Gastrointestinal stromal tumor 4. Consultation to urology for bladder fistulization. Additionally, he may benefit from a cystoscopy where a tissue biopsy may be obtained from the fistula itself to guide treatment 5. Patient has history of chronic iron deficiency anemia. Iron panel being reordered. Will need iron infusion pending results 6. Full inpatient hospitalization over 2 nights. 7. DVT prophylaxis 8. Antibiotic prophylaxis Past Medical History Past Medical History: No Reported History Additional Past Medical History / Comment(s): ABDOMINAL ABCESS-RECEIVING ASHLEY EPHIN BEFORE SURGERY PLANNED TO REMOVE. History of Any Multi-Drug Resistant Organisms: None Reported Past Surgical History: Appendectomy Past Anesthesia/Blood Transfusion Reactions: No Reported Reaction Past Psychological History: No Psychological Hx Reported Smoking Status: Current every day smoker Past Alcohol Use History: None Reported Past Drug Use History: None Reported - Past Family History Mother Family Medical History: No Reported History Medications and Allergies Home Medications Medication Instructions Recorded Confirmed Type No Known Home Medications 08/31/19 08/31/19 History Allergies Allergy/AdvReac Type Severity Reaction Status Date / Time No Known Allergies Allergy Verified 08/31/19 17:32 Surgical - Exam Vital Signs Temp Pulse Resp BP Pulse Ox 98.4 F 102 H 20 112/64 100 08/31/19 17:17 08/31/19 17:17 08/31/19 17:17 08/31/19 17:17 08/31/19 17:17 Results - Labs 08/31/19 18:25 08/31/19 18:25 Abnormal Lab Results - Last 24 Hours (Table) 08/31/19 08/31/19 08/31/19 Range/Units 18:25 18:25 18:25 Hgb 9.0 L (13.0-17.5) gm/dL Hct 34.4 L (39.0-53.0) % MCV 64.6 L (80.0-100.0) fL MCH 16.9 L (25.0-35.0) pg MCHC 26.2 L (31.0-37.0) g/dL RDW 22.6 H (11.5-15.5) % Glucose 115 H (74-99) mg/dL POC Glucose (mg/dL) (75-99) mg/dL Total Bilirubin 0.1 L (0.2-1.3) mg/dL Urine Protein 2+ H (Negative) Urine Blood Large H (Negative) Ur Leukocyte Esterase Large H (Negative) Urine RBC >182 H (0-5) /hpf Urine WBC >182 H (0-5) /hpf Urine WBC Clumps Many H (None) /hpf Urine Bacteria Moderate H (None) /hpf Urine Mucus Many H (None) /hpf 09/01/19 Range/Units 01:01 Hgb (13.0-17.5) gm/dL Hct (39.0-53.0) % MCV (80.0-100.0) fL MCH (25.0-35.0) pg MCHC (31.0-37.0) g/dL RDW (11.5-15.5) % Glucose (74-99) mg/dL POC Glucose (mg/dL) 184 H (75-99) mg/dL Total Bilirubin (0.2-1.3) mg/dL Urine Protein (Negative) Urine Blood (Negative) Ur Leukocyte Esterase (Negative) Urine RBC (0-5) /hpf Urine WBC (0-5) /hpf Urine WBC Clumps (None) /hpf Urine Bacteria (None) /hpf Urine Mucus (None) /hpf Microbiology - Last 24 Hours (Table) 08/31/19 18:25 Urine Culture - Preliminary Urine,Voided Diabetes panel 08/31/19 Range/Units 18:25 Sodium 137 (137-145) mmol/L Potassium 4.0 (3.5-5.1) mmol/L Chloride 102 (98-107) mmol/L Carbon Dioxide 28 (22-30) mmol/L BUN 11 (9-20) mg/dL Creatinine 0.74 (0.66-1.25) mg/dL Glucose 115 H (74-99) mg/dL Calcium 8.4 (8.4-10.2) mg/dL AST 25 (17-59) U/L ALT 12 (4-49) U/L Alkaline Phosphatase 81 (38-126) U/L Total Protein 6.8 (6.3-8.2) g/dL Albumin 3.5 (3.5-5.0) g/dL Calcium panel 08/31/19 Range/Units 18:25 Calcium 8.4 (8.4-10.2) mg/dL Albumin 3.5 (3.5-5.0) g/dL Pituitary panel 08/31/19 Range/Units 18:25 Sodium 137 (137-145) mmol/L Potassium 4.0 (3.5-5.1) mmol/L Chloride 102 (98-107) mmol/L Carbon Dioxide 28 (22-30) mmol/L BUN 11 (9-20) mg/dL Creatinine 0.74 (0.66-1.25) mg/dL Glucose 115 H (74-99) mg/dL Calcium 8.4 (8.4-10.2) mg/dL Adrenal panel 08/31/19 Range/Units 18:25 Sodium 137 (137-145) mmol/L Potassium 4.0 (3.5-5.1) mmol/L Chloride 102 (98-107) mmol/L Carbon Dioxide 28 (22-30) mmol/L BUN 11 (9-20) mg/dL Creatinine 0.74 (0.66-1.25) mg/dL Glucose 115 H (74-99) mg/dL Calcium 8.4 (8.4-10.2) mg/dL Total Bilirubin 0.1 L (0.2-1.3) mg/dL AST 25 (17-59) U/L ALT 12 (4-49) U/L Alkaline Phosphatase 81 (38-126) U/L Total Protein 6.8 (6.3-8.2) g/dL Albumin 3.5 (3.5-5.0) g/dL Assessment and Plan (1) Bladder fistula Current Visit: Yes Status: Acute Code(s): N32.2 - VESICAL FISTULA, NOT ELSEWHERE CLASSIFIED SNOMED Code(s): 44800796 (2) Right lower quadrant abdominal mass Current Visit: Yes Status: Acute Code(s): R19.03 - RIGHT LOWER QUADRANT ABDOMINAL SWELLING, MASS AND LUMP SNOMED Code(s): 798741456 (3) Hematuria Current Visit: No Status: Acute Code(s): R31.9 - HEMATURIA, UNSPECIFIED SNOMED Code(s): 51327063 (4) Iron deficiency anemia Current Visit: No Status: Acute Code(s): D50.9 - IRON DEFICIENCY ANEMIA, UNSPECIFIED SNOMED Code(s): 17121783
--- NOTE | 2019-09-01 11:06 | P.CONS ---
History of Present Illness - Reason for Consult Consult date: 09/01/19 Intra-abdominal mass Requesting physician: Ester Walden - Chief Complaint Changes in urine output - History of Present Illness Mr. Portillo is a 29-year-old -[place] male patient who presented to the emergency department last month with complaints of abdominal pain and recurrent urinary tract infection symptoms. He states it started in May and has been tested for STDs and treated for UTIs as outpatient through different outside acute care clinics. He has what was described as serious like drainage and occasional blood when he urinates. Denied any blood or dark tarry stools. Stool for OB last month was negative. On his July 2019 admission he was found to have hemoglobin of 4.7, microcytic. He received two units of PRBC, He was only mildy symptomatic, weak and SOB on admission. A full work-up revealed iron deficiency anemia. GI and evaluation was recommended although with the concern of colitis, abscess formation it was felt a more conservative approach was more appropriate considering the risks. He was placed on antibiotics and continued on these as outpatient. In July his CT scan of abdomen revealed a RLQ mass 10.3x6.4x9cm within the peritoneal cavity. He is a very pleasant male who is otherwisehealthy; plays sport and very active, nonsmoker. He states earlier this year he attempted to donate plasma for extra money but he was turned down due to "low blood counts". He has never seen medical provider and denies any known history or family history of underlying blood disorders. Urinalysis last admission and this admission shows large amount of RBCs, Blood, Leuk esters, Yeast, and WBCs. His urine culture was negative. He denies any recent weight loss but states he has been getting t- shirt and sheet soaking night sweats for the past few month. He now returns approx 4 weeks later with changes in his urine output. CT abdomen and pelvis reveal no improvement in abnormality in abdomen. Therefore the concern of underlying malignancy medical oncology has been re-consulted. Review of Systems A 14 point review of systems assessed and completed and all negative except HPI Past Medical History Past Medical History: No Reported History Additional Past Medical History / Comment(s): ABDOMINAL ABCESS-RECEIVING ROCEPHIN BEFORE SURGERY PLANNED TO REMOVE. History of Any Multi-Drug Resistant Organisms: None Reported Past Surgical History: Appendectomy Past Anesthesia/Blood Transfusion Reactions: No Reported Reaction Past Psychological History: No Psychological Hx Reported Smoking Status: Current every day smoker Past Alcohol Use History: None Reported Past Drug Use History: None Reported - Past Family History Mother Family Medical History: No Reported History Medications and Allergies Home Medications Medication Instructions Recorded Confirmed Type No Known Home Medications 08/31/19 08/31/19 History Allergies Allergy/AdvReac Type Severity Reaction Status Date / Time No Known Allergies Allergy Verified 08/31/19 17:32 Physical Exam Vitals: Vital Signs Temp Pulse Pulse Resp BP BP Pulse Ox 09/01/19 05:00 98.4 F 75 16 95/58 99 08/31/19 21:58 98.5 F 80 18 116/73 100 08/31/19 20:54 97.9 F 78 18 116/50 100 08/31/19 19:51 79 18 114/63 100 08/31/19 17:17 98.4 F 102 H 20 112/64 100 Intake and Output 08/31/19 09/01/19 09/01/19 22:59 06:59 14:59 Intake Total 910 1070 Balance 910 1070 Intake: Intake, IV Titration 110 480 Amount Sodium Chloride 0.9% 1, 60 480 000 ml @ 60 mls/hr IV . [id number] [facility] Rx#:[id number] cefTRIAXone 1 gm In 50 Sodium Chloride 0.9% 50 ml @ 100 mls/hr IVPB ONCE STA Rx#:[id number] Oral 800 590 Other: Voiding Method Toilet # Voids 1 3 Weight 74.389 kg Gen: Alert and Oriented, FREDI Neck Supple Trachea midline No palpable adenopathy Heart: Tachy, Reg Abdomen: RLQ mass palpable tender Lungs: No increased effort, CTA, shallow inspirations Ext: No edema Skin: No lesions or rash Results CBC & Chem 7: 09/01/19 07:11 08/31/19 18:25 Labs: Abnormal Lab Results - Last 24 Hours (Table) 08/31/19 08/31/19 08/31/19 Range/Units 18:25 18:25 18:25 Hgb 9.0 L (13.0-17.5) gm/dL Hct 34.4 L (39.0-53.0) % MCV 64.6 L (80.0-100.0) fL MCH 16.9 L (25.0-35.0) pg MCHC 26.2 L (31.0-37.0) g/dL RDW 22.6 H (11.5-15.5) % Glucose 115 H (74-99) mg/dL POC Glucose (mg/dL) (75-99) mg/dL Total Bilirubin 0.1 L (0.2-1.3) mg/dL Urine Protein 2+ H (Negative) Urine Blood Large H (Negative) Ur Leukocyte Esterase Large H (Negative) Urine RBC >182 H (0-5) /hpf Urine WBC >182 H (0-5) /hpf Urine WBC Clumps Many H (None) /hpf Urine Bacteria Moderate H (None) /hpf Urine Mucus Many H (None) /hpf 09/01/19 Range/Units 01:01 Hgb (13.0-17.5) gm/dL Hct (39.0-53.0) % MCV (80.0-100.0) fL MCH (25.0-35.0) pg MCHC (31.0-37.0) g/dL RDW (11.5-15.5) % Glucose (74-99) mg/dL POC Glucose (mg/dL) 184 H (75-99) mg/dL Total Bilirubin (0.2-1.3) mg/dL Urine Protein (Negative) Urine Blood (Negative) Ur Leukocyte Esterase (Negative) Urine RBC (0-5) /hpf Urine WBC (0-5) /hpf Urine WBC Clumps (None) /hpf Urine Bacteria (None) /hpf Urine Mucus (None) /hpf Microbiology - Last 24 Hours (Table) 08/31/19 18:25 Urine Culture - Preliminary Urine,Voided CT scan - abdomen: report reviewed CT scan - pelvis: report reviewed Assessment and Plan Plan: Assessment and Recommendations: Microcytic Hypochromic Anemia: - Transfuse for hemoglobin less than 7 - There is a chronic iron deficiency noted in the results of his lab values, this maybe related to urinary versus GI blood loss versus ?Malignancy. We still recommend further evaluation by Urology and Full GI evaluation. - Parental Iron status post 06/17 - Hemoglobin Electrophoresis last admission was negative for hemaglobinopathy consistent with iron deficiency. - Parental Iron may be given if no s/s bacteremia, patient is afebrile RLQ Mass found on CT scan: - Abscess versus other - Status post treatment with IV antibiotics without improvement - Differential concerning for malignancy - Reviewed repeat CT abdomen - no oral contrast, no change is abnormality after anticiotics - General Surgery is primary, consider further exploration and tissue biopsy - Work-up for neuroendocrine etiology Chromogranin and Urine 5 hydroxyindoleacetic acid - Splenomegaly mild 13.5cm Intense Night Sweats: - Subjective Fevers versus other - Improving - Objective afebrile - Urine and blood cultures neg last admission Plan: - Work-up ordered for GIST, Neuroendocrine, Lymphoma etiologies - Recommend HIV testing as well although he believes this was recently done with his clinic work-ups, defer to primary team - Recommend Antibiotic coverage - Biopsy indicated concern for underlying malignancy - If blood cultures return negative parental iron x3-5 days Thank you for allowing us to participate in the care of this patient we will follow along with you.
[2019-09-01 11:21] LABS: Uric Acid 5.4 mg/dL (3.5-8.5)
[2019-09-01 11:29] LABS: Anisocytosis Moderate; HCT 34.2 % (39.0-53.0); HGB 8.8 gm/dL (13.0-17.5); Hypochromasia Marked; MCHC 25.8 g/dL (31.0-37.0); Mean Platelet Volume 7.5; Microcytosis Marked; Platelet Count 296 k/uL (150-450); Poikilocytosis Slight; RBC 5.19 m/uL (4.30-5.90); RDW 22.6 % (11.5-15.5); WBC 5.8 k/uL (3.8-10.6)
[2019-09-01 12:11] LABS: Eosinophils # (M) 0.12 k/uL (0-0.7); Lymphocytes # (M) 1.91 k/uL (1.0-4.8); Monocytes # (M) 0.29 k/uL (0-1.0); Neutrophils # (M) 3.48 k/uL (1.3-7.7); Neutrophils % (M) 60 %; Nucleated Red Blood Cells 0 /100 WBC (0-0); Total Cells Counted 100
[2019-09-01 12:13] LABS: Ovalocytes Present
[2019-09-01 13:46] LABS: % Iron Saturation 2.24 (15.00-50.00); Ferritin 3.2 ng/mL (22.0-322.0)
--- NOTE | 2019-09-01 15:46 | P.PCN ---
Date of Procedure: 09/01/19 Preoperative Diagnosis: colon mass Procedure(s) Performed: ct guide core biopsy Anesthesia: local Estimated Blood Loss (ml): 2 Pathology: other (4 x 18 ga core, 2x 22 ga)
--- NOTE | 2019-09-01 15:55 | CT ---
EXAMINATION TYPE: CT biopsy abdomen percutaneous DATE OF EXAM: 09/01/2019 HISTORY: Colon mass COMPARISON: CT 08/01/2019, 07/29/2019, 08/31/2019 Maximal barrier technique was utilized, hand hygiene obtained with soap and water. The skin overlyin g a suitable path to the lesion was localized using CT and the overlying skin was prepped and draped. Lidocaine used for local anesthesia. A skin kristina made with a scalpel. Using CT guidance, access w as gained to the lesion 22-gauge fine-needle aspiration needle, second pass was made, with a 18-gauge core needle. Core specimen submitted to cytology, 4 cores obtained. 6 pass(es) performed in all. Following the procedure no immediate complications. The patient is discharged in stable condition. Hemostasis achieved. IMPRESSION: SUCCESSFUL CT GUIDED CORE AND FINE-NEEDLE BIOPSY of colon mass. PATHOLOGY PENDING. THIS PROCEDURE W PERFORMED BY THE UNDERSIGNED.
[2019-09-01] MEDS: SODIUM CHLORIDE 0.9% 1,000 ML IV SCH ×2 (19:19→20:03)
[2019-09-02] MEDS ORDERED: SODIUM FERRIC GLUCONAT-SUCROSE 125 MG in SODIUM CHLORIDE 0.9% 100 ML IVPB SCH (09:00)
[2019-09-02 13:03] VITALS: BP 115/72; PULSE 81; RESP 18; TEMP 98.4
--- NOTE | 2019-09-02 13:45 | P.PN ---
Subjective Progress Note Date: 09/02/19 Principal diagnosis: Colon Mass Status post tissue biopsy of abdominal mass. Objective - Vital Signs Vital signs: Vital Signs Temp 98.4 F 09/02/19 13:00 Pulse 81 09/02/19 13:00 Resp 18 09/02/19 13:00 BP 115/72 09/02/19 13:00 Pulse Ox 100 09/02/19 13:00 Intake & Output 09/01/19 09/02/19 09/02/19 18:59 06:59 18:59 Intake Total 720 2510 240 Balance 720 2510 240 Intake: Intake, IV Titration 120 720 Amount Sodium Chloride 0.9% 1, 120 720 000 ml @ 60 mls/hr IV . [id number] [facility] Rx#:[id number] Oral 600 1790 240 Other: Voiding Method Toilet Toilet Toilet # Voids 2 3 # Bowel Movements 1 - Exam Gen: Alert and Oriented, FREDI Neck Supple Trachea midline No palpable adenopathy Heart: Tachy, Reg Abdomen: RLQ mass palpable tender Lungs: No increased effort, CTA, shallow inspirations Ext: No edema Skin: No lesions or rash - Labs CBC & Chem 7: 09/01/19 07:11 08/31/19 18:25 Labs: Abnormal Lab Results - Last 24 Hours (Table) 09/01/19 Range/Units 06:26 Iron 7 L (65-175) ug/dL % Saturation 2.24 L (15.00-50.00) Ferritin 3.2 L (22.0-322.0) ng/mL Microbiology - Last 24 Hours (Table) 08/31/19 19:58 Blood Culture - Preliminary Blood No Growth after 24 hours Assessment and Plan Plan: Assessment and Recommendations: Microcytic Hypochromic Anemia: - Transfuse for hemoglobin less than 7 - There is a chronic iron deficiency noted in the results of his lab values, this maybe related to urinary versus GI blood loss versus ?Malignancy. We still recommend further evaluation by Urology and Full GI evaluation. - Parental Iron status post 06/17 - Hemoglobin Electrophoresis last admission was negative for hemaglobinopathy consistent with iron deficiency. - Agree with ordered Parental Iron RLQ Mass found on CT scan: - Abscess versus other - Status post treatment with IV antibiotics without improvement - Differential concerning for malignancy - Reviewed repeat CT abdomen - no oral contrast, no change is abnormality after anticiotics - Status post biopsy await results, CEA pending - Work-up for neuroendocrine etiology Chromogranin and Urine 5 hydroxyindoleacetic acid - Spleen mild 13.5cm Intense Night Sweats: - Subjective Fevers versus other - Improving - Objective afebrile - Urine and blood cultures neg last admission Plan: - Work-up ordered for GIST, Neuroendocrine, Lymphoma etiologies - Recommend HIV testing as well although he believes this was recently done with his clinic work-ups, defer to primary team - Recommend Antibiotic coverage - Await pathology results from abdominal mass biopsy - If blood cultures return negative parental iron x3-5 days
--- NOTE | 2019-09-02 13:46 | P.PN ---
Subjective Progress Note Date: 09/02/19 CHIEF COMPLAINT: Right lower quadrant mass HISTORY OF PRESENT ILLNESS: Patient examined at the bedside with Dr. Walden. Patient underwent CT-guided fine-needle biopsy of abdominal mass yesterday. Results pending. Patient denies abdominal pain. Tolerating diet. He denies nausea or vomiting. WBC 5.8. Hemoglobin 8.8. Platelet count 296. Vital signs stable. He is afebrile PHYSICAL EXAM: VITAL SIGNS: Reviewed GENERAL: Well-developed in no acute distress. HEENT: No sclera icterus. Extraocular movements grossly intact. Moist buccal mucosa. Head is atraumatic, normocephalic. Hears conversational speech. No nasal drainage. NECK: Supple without lymphadenopathy. CHEST: Non-labored respirations and equal bilateral excursions. CARDIOVASCULAR: Regular rate with regular rhythm. Palpable 2+ radial pulses. ABDOMEN: Soft. Nondistended. Nontender. MUSCULOSKELETAL: No clubbing or cyanosis. NEUROLOGIC: No focal or lateralizing signs. Cranial nerves II through XII grossly intact. PSYCH: Appropriate affect. Alert and oriented to person, place and time. SKIN: Well perfused. Good skin turgor. ASSESSMENT: 1. Right lower quadrant mass, possible malignancy 2. Bladder fistulization 3. History of iron deficiency anemia PLAN: -Await results of biopsy -Oncology following. Appreciate recommendations -Urology consulted. Await evaluation. May benefit from cystoscopy where a tissue biopsy may be obtained from the fistula itself to guide treatment -Continue diet as tolerated -Continue IV iron infusions -Further recommendations pending Nurse practitioner note has been reviewed by physician. Signing provider agrees with the documented findings, assessment, and plan of care. Objective - Vital Signs Vital signs: Vital Signs Temp 98.4 F 09/02/19 13:00 Pulse 81 09/02/19 13:00 Resp 18 09/02/19 13:00 BP 115/72 09/02/19 13:00 Pulse Ox 100 09/02/19 13:00 Intake & Output 09/01/19 09/02/19 09/02/19 18:59 06:59 18:59 Intake Total 720 2510 240 Balance 720 2510 240 Intake: Intake, IV Titration 120 720 Amount Sodium Chloride 0.9% 1, 120 720 000 ml @ 60 mls/hr IV . [id number] [facility] Rx#:[id number] Oral 600 1790 240 Other: Voiding Method Toilet Toilet Toilet # Voids 2 3 # Bowel Movements 1 - Labs CBC & Chem 7: 09/01/19 07:11 08/31/19 18:25 Labs: Abnormal Lab Results - Last 24 Hours (Table) 09/01/19 Range/Units 06:26 Iron 7 L (65-175) ug/dL % Saturation 2.24 L (15.00-50.00) Ferritin 3.2 L (22.0-322.0) ng/mL Microbiology - Last 24 Hours (Table) 08/31/19 19:58 Blood Culture - Preliminary Blood No Growth after 24 hours
[2019-09-02] MEDS: SODIUM CHLORIDE 0.9% 1,000 ML IV SCH (16:43)
--- NOTE | 2019-09-02 18:32 | P.GSCN ---
History of Present Illness Consult date: 09/02/19 Reason for Consult: Bladder irregularity Requesting physician: Ester Walden History of present illness: The patient is a 29-year-old -[place]ian male with an unremarkable urologic history. Beginning in May,, he began to experience urinary frequency and urgency. He feels that he is unable to empty his bladder. He was treated with Bactrim, and his symptoms improved. He denies dysuria. He does report purulent urethral drainage, as well as bloody discharge following activity. He believes he may have had a single episode of pneumaturia. He denies fecaluria. He states that he passed a small piece of plastic in his urine recently. He was hospitalized last month, and a computed tomography scan showed evidence of a large right lower quadrant mass. The patient's symptoms are suggestive of a UTI, but a urine culture during the last hospitalization was negative. I reviewed the CT scan. The lack of air within the urinary bladder on both CT scans argues against an enterovesical fistula. The presence of inflammation immediately adjacent to the bladder can cause symptoms and findings suggestive of cystitis. Likewise, compression of a bladder mass can cause increased urinary frequency. Fortunately, if there is this is likely at the right bladder dome and away from the bladder trigone. A CT-guided biopsy of the mass was performed yesterday, and the results are pending. Review of Systems - Constitutional Denies chills, Denies fever - Genitourinary Reports urinary frequency, Denies dysuria Past Medical History Past Medical History: No Reported History Additional Past Medical History / Comment(s): ABDOMINAL ABCESS-RECEIVING ROCEPHIN BEFORE SURGERY PLANNED TO REMOVE. History of Any Multi-Drug Resistant Organisms: None Reported Past Surgical History: Appendectomy Past Anesthesia/Blood Transfusion Reactions: No Reported Reaction Past Psychological History: No Psychological Hx Reported Smoking Status: Current every day smoker Past Alcohol Use History: None Reported Past Drug Use History: None Reported - Past Family History Mother Family Medical History: No Reported History Medications and Allergies Home Medications Medication Instructions Recorded Confirmed Type No Known Home Medications 08/31/19 08/31/19 History Allergies Allergy/AdvReac Type Severity Reaction Status Date / Time No Known Allergies Allergy Verified 08/31/19 17:32 Surgical - Exam Vital Signs Temp Pulse Resp BP Pulse Ox 98.4 F 102 H 20 112/64 100 08/31/19 17:17 08/31/19 17:17 08/31/19 17:17 08/31/19 17:17 08/31/19 17:17 - General well developed, well nourished, no distress - Respiratory normal respiratory effort - Abdomen Soft, non-distended, non-tender. A large right lower quadrant mass is palpable. - Genitourinary normal penis with no external lesions, testicles non-tender - Psychiatric oriented to time, oriented to person, oriented to place, speech is normal, memory intact Results - Labs 09/01/19 07:11 08/31/19 18:25 Microbiology - Last 24 Hours (Table) 08/31/19 19:58 Blood Culture - Preliminary Blood No Growth after 24 hours - Imaging CT scan - pelvis: report reviewed, image reviewed Assessment and Plan (1) Other specified disorders of bladder Current Visit: Yes Status: Acute Code(s): N32.89 - OTHER SPECIFIED DISORDERS OF BLADDER SNOMED Code(s): 06651932 Plan: I had a lengthy discussion with the patient regarding the fact that he has a large right lower quadrant mass which is immediately adjacent to the bladder. It is impossible to determine whether there is bladder involvement or simply extrinsic compression on the bladder. I intend to make arrangements for him to undergo cystoscopy next week to evaluate this. The rationale for this was discussed, as well as potential risks. These include anesthesia, bleeding, infection, and bladder perforation. It was made clear to him that if a foreign body is identified, it will be removed. If there were findings suspicious for malignancy, a biopsy will be performed. If there are findings suggestive of a fistula, a cystogram be performed. It is not necessary from my standpoint that he remain hospitalized over the weekend. Time with Patient: Greater than 30
--- NOTE | 2019-09-02 19:52 | P.PN ---
Progress Note - Text Progress Note Date: 09/02/19 Patient reports urgent matter and needed to go home. Medical risks described. Biopsies still pending. Also he will need upper and lower endoscopy with biopsies for anemia and malignancy. Patient demonstrated understanding of care plan and wished to follow up when biopsies available. Risk of tumor spread and malignancy also reviewed. Patient accepted risks and wished to be discharged.
--- NOTE | 2019-09-02 19:55 | P.DS ---
Providers Date of admission: 08/31/19 19:16 Expected date of discharge: 09/02/19 Attending physician: Ester Walden Consults: 09/01/19 08:58 Consult Physician Urgent Consulting Provider: Agustin Leslie Consult Reason/Comments: Intra-abdominal mass, lymphoma or gastrointestinal stromal tumor Do you want consulting provider notified?: Yes 09/01/19 08:59 Consult Physician Urgent Consulting Provider: Raz Inman Consult Reason/Comments: Cysto for symptomatic bladder fistula Do you want consulting provider notified?: Yes Primary care physician: Stated None - Discharge Diagnosis(es) (1) Bladder fistula Current Visit: Yes Status: Acute (2) Right lower quadrant abdominal mass Current Visit: Yes Status: Acute (3) Hematuria Current Visit: No Status: Acute (4) Iron deficiency anemia Current Visit: No Status: Acute Patient Condition at Discharge: Stable Plan - Discharge Summary Discharge Rx Participant: No New Discharge Prescriptions: New Ferrous Sulfate [Feosol] 325 mg PO TID #90 tab Discharge Medication List Ferrous Sulfate [Feosol] 325 mg PO TID #90 tab 09/02/19 [Rx] Follow up Appointment(s)/Referral(s): Ester Walden MD [STAFF PHYSICIAN] - 09/06/19 (Please notify office for any changes in condition.) None,Stated [Primary Care Provider] - 1-2 days Patient Instructions/Handouts: Iron Rich Diet (DC) Discharge Disposition: HOME SELF-CARE
[2019-09-05] MEDS ORDERED: DEXAMETHASONE SOD PHOSPHATE 10 MG/ML 1 ML VIAL IV ONE (06:04)
[2019-09-05] MEDS ORDERED: ONDANSETRON 4 MG/2 ML VIAL IVP ONE (06:04)
[2019-09-05] MEDS ORDERED: LACTATED RINGERS 1,000 ML IV SCH (06:04)
[2019-09-05] MEDS ORDERED: HYDROmorphone 0.5 MG/0.5 ML SYRINGE IVP PRN (06:04)
[2019-09-05] MEDS ORDERED: MIDAZOLAM 2 MG/2 ML VIAL IV PRN (06:04)
[2019-09-06] MEDS ORDERED: ONDANSETRON 4 MG/2 ML VIAL ONE (10:35)
--- NOTE | 2019-09-08 22:53 | CDI ---
Documentation Clarification Form Date: 09/09/2019 From: Masood Mi Phone: If you have a question about this query, please contact Julia Mi, Heel Seat Flap Stapler at [phone] between 8am and 5pm. Admit Date: 08/31/2019 Discharge Date: 09/02/2019 Patient Name: Joey Portillo Visit Number: [id number] ATTENTION: The Clinical Documentation Specialists (CDI) and [facility] Coding Staff appreciate your assistance in clarifying documentation. Please respond to the clarification below the line at the bottom and electronically sign. The CDI & [facility] Coding staff will review the response and follow-up if needed. Please note: Queries are made part of the Legal Health Record. If you have any questions, please contact the author of this message via ITS. Dear Ester Calvin, The final diagnosis of the pathology report states: ABDOMINAL MASS, ASPIRATE: Features consistent with mesenchymal neoplasm. Documentation states: Lower abdominal mass Patient history/risk factors: intra-abdominal mass Treatment:SUCCESSFUL CT GUIDED CORE AND FINE-NEEDLE BIOPSY of colon mass, Conservative management. In your professional opinion, do you agree with the pathology report specifying Colon Mass as Mesenchymal neoplasm? Yes No Other (please specify) Unable to determine Spoke to pathologist Dr Voss--AN ADDENDUM IS PENDING TO HIS PATHOLOGY REPORT. Consultation to [facility] was made for Pathology AND complete diagnosis is PENDING. Please re-direct this pathology question to the pathologist who can appropriately determine if the sample was successful or adequate; therefore, I am unable to determine. 09/09/19 @ 0037 MTDVesta
--- NOTE | 2019-09-12 23:11 | CDI ---
Documentation Clarification Form Date: 09/13/2019 From: Masood Mi Phone: If you have a question about this query, please contact Julia Mi, Operations Research Director at [phone] between 8am and 5pm. Admit Date: 08/31/2019 Discharge Date: 09/02/2019 Patient Name: Joey Portillo Visit Number: [id number] ATTENTION: The Clinical Documentation Specialists (CDI) and [facility] Coding Staff appreciate your assistance in clarifying documentation.Please respond to the clarification below the line at the bottom and electronically sign.The CDI [facility] Coding staff will review the response and follow-up if needed.Please note: Queries are made part of the Legal Health Record.If you have any questions, please contact the author of this message via ITS. Dear Tc Mary DO., The final diagnosis of the pathology report states: ABDOMINAL MASS, ASPIRATE: Features consistent with mesenchymal neoplasm. Documentation states: Lower abdominal mass Patient history/risk factors: intra-abdominal mass Treatment:SUCCESSFUL CT GUIDED CORE AND FINE-NEEDLE BIOPSY of colon mass, Conservative management. In your professional opinion, do you agree with the pathology report specifying Colon Mass as Mesenchymal neoplasm? Yes No Other (please specify) Unable to determine MTDD
== END 2019-09-02 20:47 | disposition home or self-care (01) | DRG 392 ==
LOC: EC 17:16 → 5NMEDONC 19:16
PROVIDERS: ADMIT Surgery Plastic and Reconstructive Surgery; ATTEND Surgery Plastic and Reconstructive Surgery
PROC: 0DB Gastrointestinal System, Excision (ICD-10-PCS; principal; 2019-09-01)
DX: R19.03 Right lower quadrant abdominal swelling, mass and lump (principal); N32.2 Vesical fistula, not elsewhere classified; R31.9 Hematuria, unspecified; Z90.49 Acquired absence of other specified parts of digestive tract; F17.200 Nicotine dependence, unspecified, uncomplicated; D50.9 Iron deficiency anemia, unspecified; Z87.440 Personal history of urinary (tract) infections; Z11.59 Encounter for screening for other viral diseases
CPT/HCPCS: 36415; 49180; 74177; 77012; 80053; 81001; 82728; 83497; 83540; 83550; 83615; 83921; 84260; 84550; 85025; 85610; 85730; 86316; 87040; 87086; 88173; 88305; 88341; 88342; 99285

== ENCOUNTER 2019-09-06 09:40 | Day surgery (SDC) | payer OTHER ==
[2019-09-05 13:28] VITALS: BMI 23.5
--- NOTE | 2019-09-05 18:49 | P.GSHP ---
History of Present Illness H&P Date: 09/05/19 Chief Complaint: Pelvic Mass The patient is a 29-year-old -[place] male with an unremarkable urologic history. Beginning in May,, he began to experience urinary frequency and urgency. He feels that he is unable to empty his bladder. He was treated with Bactrim, and his symptoms improved. He denies dysuria. He does report purulent urethral drainage, as well as bloody discharge following activity. He believes he may have had a single episode of pneumaturia. He denies fecaluria. He states that he passed a small piece of plastic in his urine recently. He was hospitalized last month, and a computed tomography scan showed evidence of a large right lower quadrant mass. The patient's symptoms are suggestive of a UTI, but a urine culture during the last hospitalization was negative. I reviewed the CT scan. The lack of air within the urinary bladder on both CT scans argues against an enterovesical fistula. The presence of inflammation immediately adjacent to the bladder can cause symptoms and findings suggestive of cystitis. Likewise, compression of a bladder mass can cause increased urinary frequency. Fortunately, if there is this is likely at the right bladder dome and away from the bladder trigone. A CT-guided biopsy of the mass was consistent with a mesenchymal neoplasm. - Constitutional Constitutional: Denies chills, Denies fever - Genitourinary (Female) Genitourinary: Reports urinary frequency, Denies dysuria Past Medical History Past Medical History: No Reported History Additional Past Medical History / Comment(s): IRON DEFICIENCY ANEMIA HX OF BLOOD TRANSFUSION., PT STATES MASS RIGHT HIP AREA-HAD BIOPSY OF COLON MASS .,STATES BLOOD AND PUS IN URINE. History of Any Multi-Drug Resistant Organisms: None Reported Past Surgical History: Appendectomy Additional Past Surgical History / Comment(s): CT GUIDED BIOPSY OF COLON MASS. Past Anesthesia/Blood Transfusion Reactions: No Reported Reaction Past Psychological History: No Psychological Hx Reported Smoking Status: Never smoker Past Alcohol Use History: None Reported Additional Past Alcohol Use History / Comment(s): DENIES HX OF TOBACCO., HX OF VAPING BUT NONE SINCE MAR 2019. NO ALCOHOL SINCE MAY 2019 Past Drug Use History: Marijuana Additional Drug Use History / Comment(s): USES MARIJUANA EVERY 2-3 DAYS. - Past Family History Mother Family Medical History: No Reported History Medications and Allergies Home Medications Medication Instructions Recorded Confirmed Type Ferrous Sulfate [Feosol] 325 mg PO TID #90 tab 09/02/19 09/05/19 Rx Allergies Allergy/AdvReac Type Severity Reaction Status Date / Time No Known Allergies Allergy Verified 09/05/19 12:50 Surgical - Exam - General well developed, well nourished, no distress - Respiratory normal respiratory effort - Abdomen Abdomen: soft, non tender, masses (RLQ mass), no guarding, no rigid, no rebound - Psychiatric oriented to time, oriented to person, oriented to place, speech is normal, memory intact Assessment and Plan (1) Other specified disorders of bladder Status: Acute Code(s): N32.89 - OTHER SPECIFIED DISORDERS OF BLADDER SNOMED Code(s): 19016941 Plan: I had a lengthy discussion with the patient regarding the fact that he has a large right lower quadrant mass which is immediately adjacent to the bladder. It is impossible to determine whether there is bladder involvement or simply extrinsic compression on the bladder. He now comes for cystoscopy. Risks include anesthesia, bleeding, infection, and bladder perforation. It was made clear to him that if a foreign body is identified, it will be removed. If there were findings suspicious for malignancy, a biopsy will be considered. If there are findings suggestive of a fistula, a cystogram be performed.
[~2019-09-06 09:40] MED LIST: HYDROmorphone 0.5 MG/0.5 ML SYRINGE IVP PRN; LACTATED RINGERS 1,000 ML IV SCH; ONDANSETRON 4 MG/2 ML VIAL IVP ONE; fentaNYL (PF) 50 MCG/ML 2 ML AMP IV PRN
[2019-09-06] MEDS ORDERED: LIDOCAINE 1% (10MG/ML) FOR IV START INTRADERMA ONE (10:32)
[2019-09-06] MEDS ORDERED: fentaNYL (PF) 50 MCG/ML 2 ML AMP ONE (13:36)
[2019-09-06] MEDS ORDERED: MIDAZOLAM 2 MG/2 ML VIAL ONE (13:36)
[2019-09-06] MEDS ORDERED: LIDOCAINE 1% INJ 10MG/ML (20 ML MDV) ONE (13:36)
[2019-09-06] MEDS ORDERED: PROPOFOL 10 MG/ML 20 ML VIAL IV ONE (13:36)
[2019-09-06] MEDS ORDERED: LACTATED RINGERS 1,000 ML IV ONE (14:20)
[2019-09-06] MEDS ORDERED: IOPAMIDOL-370 50ML BTL MISCELLANE ONE (14:48)
[2019-09-06 15:16] VITALS: TEMP 97.1
--- NOTE | 2019-09-06 15:18 | P.OP ---
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 Beginning in May,, he began to experience urinary frequency and urgency. He feels that he is unable to empty his bladder. He was treated with Bactrim, and his symptoms improved. He denies dysuria. He does report purulent urethral drainage, as well as bloody discharge following activity. He believes he may have had a single episode of pneumaturia. He denies fecaluria. He states that he passed a small piece of plastic in his urine recently. He was hospitalized last month, and a computed tomography scan showed evidence of a large right lower quadrant mass. The patient's symptoms are suggestive of a UTI, but a urine culture during the last hospitalization was negative. I reviewed the CT scan. The lack of air within the urinary bladder on both CT scans argues against an enterovesical fistula. The presence of inflammation immediately adjacent to the bladder can cause symptoms and findings suggestive of cystitis. Likewise, compression of a bladder mass can cause increased urinary frequency. Fortunately, if there is this is likely at the right bladder dome and away from the bladder trigone. A CT-guided biopsy of the mass was consistent with a mesenchymal neoplasm. Operative Findings: Large tumor arising from bladder dome, likely representing direct extension of the patient's known mesenchymal neoplasm. There is no evidence of a fistula. Description of Procedure: The patient was taken in the operating room and placed in the dorsal lithotomy position, with his legs supported in Teddy stirrups. The external genitalia was prepped and draped sterilely. The 30 lens was used to introduce the 19[place] cystoscopic sheath through the urethra and into the bladder under direct vision. The bladder was inspected. Both ureteral orifices were of normal anatomic location and configuration. The entire bladder was examined, revealing a papillary-appearing tumor arising from the bladder dome, measuring 6-8 cm in diameter.. The prostate was unremarkable. The cystoscope was removed, and the 24[place] Storz resectoscope sheath was introduced into the bladder under direct vision. Using the cutting loop, a substantial portion of the tumor was resected. However, the resection was not carried down to the muscle, as no attempt was made to resect the tumor completely. Excellent hemostasis was attained. The resected tissue was saved and sent for pathologic examination. The resectoscope was removed, and the cystoscope was passed into the bladder. The bladder was filled with contrast, and no extravasation was noted. The cystoscope was removed, and an 18[place] Quiles catheter was inserted. The return was clear. The patient tolerated the procedure well and was taken to the recovery room in stable condition.
--- NOTE | 2019-09-06 15:21 | FL ---
EXAMINATION TYPE: FL urography retrograde DATE OF EXAM: 09/06/2019 CLINICAL HISTORY: Bladder mass, TECHNIQUE: Fluoroscopy. COMPARISON: Several recent prior CT studies.. FINDINGS: Fluoroscopic guidance was provided during cystoscopy procedure performed by Dr. Inman. A total of 9 seconds of fluoroscopic time was utilized during the procedure and single spot intraopera tive image shows acquired shows bladder access and opacification of bladder. IMPRESSION: As Above.
[2019-09-06 16:25] VITALS: PULSE 84; RESP 18
[2019-09-06 16:28] VITALS: BP 130/76
== END 2019-09-06 17:13 | disposition home or self-care (01) ==
LOC: OR 09:40
PROVIDERS: ATTEND Urology
DX: C67.1 Malignant neoplasm of dome of bladder (principal); D50.9 Iron deficiency anemia, unspecified; Z90.49 Acquired absence of other specified parts of digestive tract; Z87.891 Personal history of nicotine dependence; Z79.899 Other long term (current) drug therapy
CPT/HCPCS: 88307; 74420; 52240; J2250; J0690; J2405; J2001; J3010; J2704; Q9967

== ENCOUNTER 2019-09-15 08:31 | Day surgery (SDC) | payer OTHER ==
[2019-09-14 12:41] VITALS: BMI 22.3
[~2019-09-15 08:31] MED LIST changes: -HYDROmorphone 0.5 MG/0.5 ML SYRINGE IVP PRN; +LIDOCAINE 1% (10MG/ML) FOR IV START INTRADERMA PRN; -ONDANSETRON 4 MG/2 ML VIAL IVP ONE; -fentaNYL (PF) 50 MCG/ML 2 ML AMP IV PRN
--- NOTE | 2019-09-15 08:57 | P.GSHP ---
History of Present Illness H&P Date: 09/15/19 CHIEF COMPLAINT: Anemia, intra-abdominal malignancy HISTORY OF PRESENT ILLNESS: The patient is a 29-year-old male who presents with anemia and recently diagnosed intra-abdominal malignancy. Upper and lower endoscopy were offered for further evaluation and management. PAST MEDICAL HISTORY: Please see list. PAST SURGICAL HISTORY: Please see list. MEDICATIONS: Please see list. ALLERGIES: Please see list. SOCIAL HISTORY: No illicit drug use FAMILY HISTORY: No reports of Crohn disease or ulcerative colitis. REVIEW OF ORGAN SYSTEMS: CONSTITUTIONAL: No reports of fevers or chills. GI: Denies any blood in stools or constipation. PHYSICAL EXAM: VITAL SIGNS: Stable GENERAL: Well-developed pleasant in no acute distress. HEENT: No scleral icterus. Extraocular movements grossly intact. Moist buccal mucosa. NECK: Supple without lymphadenopathy. CHEST: Unlabored respirations. Equal bilateral excursions. CARDIOVASCULAR: Regular rate and rhythm. Distal 2+ pulses. ABDOMEN: Soft, nondistended. MUSCULOSKELETAL: No clubbing, cyanosis, or edema. ASSESSMENT: 1. Anemia 2. Intra-abdominal malignancy PLAN: 1. Recommend proceeding with an upper and lower endoscopy Past Medical History Past Medical History: No Reported History Additional Past Medical History / Comment(s): IRON DEFICIENCY ANEMIA HX OF BLOOD TRANSFUSION., PT STATES MASS RIGHT HIP AREA-HAD BIOPSY OF COLON MASS .,STATES BLOOD AND PUS IN URINE. History of Any Multi-Drug Resistant Organisms: None Reported Past Surgical History: Appendectomy Additional Past Surgical History / Comment(s): CT GUIDED BIOPSY OF COLON MASS. Past Anesthesia/Blood Transfusion Reactions: No Reported Reaction Smoking Status: Never smoker - Past Family History Mother Family Medical History: No Reported History Medications and Allergies Home Medications Medication Instructions Recorded Confirmed Type Ferrous Sulfate [Feosol] 325 mg PO TID #90 tab 09/02/19 09/14/19 Rx Allergies Allergy/AdvReac Type Severity Reaction Status Date / Time No Known Allergies Allergy Verified 09/15/19 08:44
[2019-09-15 09:05] VITALS: TEMP 98.2
[2019-09-15] MEDS ORDERED: fentaNYL (PF) 50 MCG/ML 2 ML AMP ONE (09:24)
[2019-09-15] MEDS ORDERED: MIDAZOLAM 2 MG/2 ML VIAL ONE (09:24)
[2019-09-15] MEDS ORDERED: PROPOFOL 10 MG/ML 20 ML VIAL IV ONE (09:24)
[2019-09-15] MEDS ORDERED: LIDOCAINE 1% INJ 10MG/ML (20 ML MDV) ONE (09:24)
--- NOTE | 2019-09-15 10:18 | P.PCN ---
Date of Procedure: 09/15/19 Description of Procedure: PREOPERATIVE DIAGNOSIS: Anemia POSTOPERATIVE DIAGNOSIS: Anemia Gastritis OPERATION: Esophagogastroduodenoscopy with biopsies along antrum. SURGEON: Ester Walden MD ANESTHESIA: MAC. INDICATIONS: The patient is a 29-year-old male who presents with anemia . Benefits and risks of the procedure were described. Informed consent was obtained. DESCRIPTION: The patient was brought into the endoscopy suite and laid in the left lateral decubitus position. An Olympus gastroscope was passed along the posterior oropharynx down to the distal esophagus where the squamocolumnar junction was encountered at 42 cm from the incisors. The stomach was entered and no bile reflux was found. Additional findings are listed below. Biopsies with cold forceps were obtained of the antrum. The first through third portion of the duodenum was examined and unremarkable. Retroflexion of the scope confirmed Hill grade 1 lower esophageal valve. The squamocolumnar junction demonstrated no LA grade A erosive esophagitis. The stomach was desufflated. The patient tolerated the procedure well. FINDINGS: Squamocolumnar junction 42 cm from the incisors. Diaphragmatic hiatus at 42 cm. Hill grade 1 lower esophageal valve. No LA grade A erosive esophagitis. No active duodenitis. Chronic gastritis, minimal RECOMMENDATIONS: Upper endoscopy as needed.
--- NOTE | 2019-09-15 10:24 | P.PCN ---
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 Colonoscopy with Amanda ink, 4 mL cecal mass Colonoscopy with snare biopsy of cecal mass SURGEON: Ester Walden MD. ANESTHESIA: MAC. INDICATIONS: The patient is a 29-year-old female who presents with anemia. Benefits and risks were described and informed consent was obtained. DESCRIPTION OF PROCEDURE: The patient had undergone Suprep. He had been brought into the operating room and laid in the left lateral decubitus position. After adequate intravenous sedation, the rectum was examined with 2% lidocaine jelly. External hemorrhoids were encountered. The rectal tone was within normal limits. No lesions were palpated in the rectal vault. With immediate entry of the Olympus colonoscope, bloody effluent was aspirated from the colon. Moderate soft tissue sloughing of the tumor was suctioned. The scope was advanced to the cecum where a large over 5 cm fungating easily friable completely securing the ileocecal valve tumor was identified with small satellite 5 mm polyps identified. A piecemeal snare polypectomy was performed with cautery along the core. Additionally, 4 mL Amanda ink was tattooed along the periphery of the tumor was 1 cm border. The prep was excellent with clear visualization of the mucosal folds. The scope was removed with visualization of each mucosal fold. No scattered diverticulosis was encountered. No arteriovenous malformations were identified. No evidence of focal colitis was found. Retroflexion of the scope demonstrated grade 3 internal hemorrhoids without active bleeding or inflammation. The colon was desufflated. The patient had tolerated the procedure well. Withdrawal time was over 6 minutes. FINDINGS: Aronchick preparation quality scale 1 (1-5) Internal hemorrhoids, grade 3 External prolapsed hemorrhoids, grade 3. No arteriovenous malformations. The scope was advanced to the cecum where a large over 5 cm fungating easily friable completely securing the ileocecal valve tumor was identified with small satellite 5 mm polyps identified. A piecemeal snare polypectomy was performed with cautery along the core. Additionally, 4 mL Amanda ink was tattooed along the periphery of the tumor was 1 cm border. No focal colitis. RECOMMENDATIONS: 1. Heme oncology consulted for referral to cancer Center 2. Will need large resection of tumor that also involves the right bladder sidewall. Plan - Discharge Summary Discharge Rx Participant: Yes New Discharge Prescriptions: No Action Ferrous Sulfate [Feosol] 325 mg PO TID #90 tab Discharge Medication List Ferrous Sulfate [Feosol] 325 mg PO TID #90 tab 09/02/19 [Rx] Follow up Appointment(s)/Referral(s): Ester Walden MD [STAFF PHYSICIAN] - 09/20/19 Patient Instructions/Handouts: *Surgery [facility] - (Anesthesia) Endoscopy Discharge Instructions Discharge Disposition: HOME SELF-CARE
[2019-09-15 10:44] VITALS: BP 105/67; PULSE 80; RESP 18
== END 2019-09-15 11:17 | disposition home or self-care (01) ==
LOC: ORWHC2ENDO 08:31
PROVIDERS: ATTEND Surgery Plastic and Reconstructive Surgery
DX: C18.0 Malignant neoplasm of cecum (principal); K29.50 Unspecified chronic gastritis without bleeding; K64.4 Residual hemorrhoidal skin tags; K64.2 Third degree hemorrhoids; Z90.49 Acquired absence of other specified parts of digestive tract; Z79.899 Other long term (current) drug therapy
CPT/HCPCS: 88305; 45385; 43239; 45381; J2250; J2001; J3010; J2704

== ENCOUNTER → 2020-03-02 | Outpatient (CLI) | payer OTHER ==
--- NOTE | 2020-03-02 13:34 | CT ---
EXAMINATION TYPE: CT abdomen pelvis w con DATE OF EXAM: 03/02/2020 COMPARISON: 08/31/2019 HISTORY: Follow up for colon cancer, observe for mets. CT DLP: 436.3 mGycm CONTRAST: CT scan of the abdomen and pelvis is performed with Oral Contrast and with IV Contrast, patient injec alin with 100ml mL of Isovue 300. FINDINGS: LUNG BASES-: No visible nodule. No infiltrate. LIVER/GB: No calcified gallstones. No space occupying hepatic lesion. Biliary tree is of normal ca liber. PANCREAS: No inflammation. No distinct mass. SPLEEN: No splenic enlargement. No lesion seen. ADRENALS: No nodule. No thickening. KIDNEYS/BLADDER: No hydronephrosis. No nephrolithiasis. No distinct renal mass. Urinary bladder g rossly unremarkable. BOWEL: Partial right hemicolectomy changes noted. No evidence for recurrent or residual mass. No evid ence for obstructive change. No abnormal collections seen. Large right lower quadrant mass has been s urgically resected. No residual mass is identified. GENITAL ORGANS: No gross abnormality. LYMPH NODES: No greater than 1cm abdominal or pelvic lymph nodes are appreciated. AORTA: No significant abnormality. OSSEOUS STRUCTURES: No significant abnormality is seen. OTHER: No significant additional abnormality is seen. IMPRESSION: 1. Large right lower quadrant mass has been surgically resected. No residual mass is identified. 2. Partial right hemicolectomy changes noted.
== END | disposition home or self-care (01) ==
LOC: RADCTMAIN 11:06
PROVIDERS: ATTEND Internal Medicine Hematology & Oncology
DX: C18.2 Malignant neoplasm of ascending colon (principal); Z90.49 Acquired absence of other specified parts of digestive tract
CPT/HCPCS: 74177; Q9967

== ENCOUNTER → 2020-08-14 | Outpatient (CLI) | payer OTHER ==
--- NOTE | 2020-08-15 09:25 | XR ---
EXAMINATION TYPE: XR hand complete RT, XR wrist limited RT DATE OF EXAM: 08/14/2020 CLINICAL HISTORY: Iron deficiency anemia, carcinoma of the ascending colon. No appropriate history wa s given TECHNIQUE: Frontal, lateral and oblique images of the right hand and right breast are obtained. COMPARISON: None. FINDINGS: AP, lateral and oblique view of the right hand were obtained. There is no acute fracture/di slocation evident in the right hand. There is a chronic boxer's deformity of the metacarpal of the fi fth digit. The joint spaces in the right hand appear within normal limits. The overlying soft tissue appears unremarkable. Right wrist: AP and lateral view of the right wrist were obtained. No evidence of acute fracture or d islocation of the right wrist. The distal radius and ulna are intact. Carpals are in alignment. Proxi mal metacarpals are unremarkable. IMPRESSION: 1. No acute fracture or dislocation in the right hand. Chronic boxer's deformity of the metacarpal of the fifth digit. 2. No evidence of acute fracture or dislocation of the right wrist.
== END | disposition home or self-care (01) ==
LOC: RADXRMAIN 17:04
PROVIDERS: ATTEND Internal Medicine Hematology & Oncology
DX: D50.0 Iron deficiency anemia secondary to blood loss (chronic) (principal); C18.2 Malignant neoplasm of ascending colon; M21.821 Other specified acquired deformities of right upper arm

== ENCOUNTER → 2021-01-21 | Outpatient (CLI) | payer OTHER ==
[2021-01-21 09:24] LABS: African American GFR (CKD) >90 (>60 ml/min/1.73 sqM); Blood Urea Nitrogen 17 mg/dL (9-20); Non-African American GFR(CKD) >90 (>60 ml/min/1.73 sqM)
--- NOTE | 2021-01-21 12:15 | CT ---
EXAMINATION TYPE: CT abdomen pelvis w con DATE OF EXAM: 01/21/2021 COMPARISON: 03/02/2020 HISTORY: follow up colon cancer CT DLP: 552.3 mGycm Automated exposure control for dose reduction was used. CONTRAST: CT scan of the abdomen pelvis is performed with IV Contrast, patient injected with 100 mL of Isovue 3 00. FINDINGS- LUNG BASES- No significant abnormality is appreciated. LIVER/GB- No gross abnormality is appreciated. PANCREAS- No gross abnormality is seen. SPLEEN- No gross abnormality is seen. ADRENALS- No gross abnormality is seen. KIDNEYS/BLADDER- no hydronephrosis nephrolithiasis. Hypodensity within the right kidney measures 15 H [place]field units suggestive of simple cyst. BOWEL-findings suggest partial right hemicolectomy. Bowel gas pattern nonspecific with no obstruction .. LYMPH NODES- No greater than 1cm abdominal or pelvic lymph nodes areappreciated. OSSEOUS STRUCTURES- No significant abnormality is seen. OTHER- small fat-containing periumbilical hernia IMPRESSION- 1.
== END | disposition home or self-care (01) ==
LOC: RADCTMAIN 08:06
PROVIDERS: ATTEND Internal Medicine Hematology & Oncology
DX: C18.9 Malignant neoplasm of colon, unspecified (principal)
CPT/HCPCS: 82565; 84520; 74177; 36415; Q9967

== ENCOUNTER 2022-03-28 03:13 | Emergency (ER) | payer OTHER ==
[2022-03-28 03:21] VITALS: BP 132/83; PULSE 71; RESP 16; TEMP 97.3
[2022-03-28] MEDS ORDERED: SULFAMETHOX-TMP 800-160MG 1 EACH TAB PO STA (03:40)
[2022-03-28] MEDS ORDERED: Acetaminophen-Codeine 300-30mg TAB PO STA (03:40)
[2022-03-28] MEDS ORDERED: IBUPROFEN 800 MG TAB PO STA (03:40)
[2022-03-28] MEDS ORDERED: ACETAMINOPHEN TAB 325 MG TAB PO STA (03:40)
[2022-03-28] MEDS ORDERED: ACET/COD 300 MG/30 MG STARTER PACK 6 TAB BTL PO STA (04:02)
[2022-03-28] MEDS ORDERED: SULFAMETH-TMP DS STARTER PACK 2 TAB BTL PO STA (04:02)
[2022-03-28] MEDS ORDERED: IBUPROFEN 600 MG STARTER PACK 4 TAB BTL PO STA (04:02)
[2022-03-28] MEDS ORDERED: traMADol 50 MG STARTER PACK 3 TAB BTL PO STA (04:02)
--- NOTE | 2022-03-28 04:04 | ED ---
Recheck HPI - General Chief Complaint: Extremity Injury, Upper Stated Complaint: finger infection Time Seen by Provider: 03/28/22 03:20 Source: patient, RN notes reviewed, old records reviewed Mode of arrival: ambulatory Limitations: no limitations - History of Present Illness Initial Comments: This is a 31-year-old male to the emergency department for evaluation patient is presenting for evaluation regards to severe right middle finger pain. Right finger tenderness and swelling. Patient had injury to his finger about 2 weeks ago and pain has been increasing and worsening since. Patient does have a blood clot or other did start having bleeding return sooner today. Is also having swelling of his fingertip. Pain is increasing MD Complaint: wound re-check -: week(s) Initial Visit For: cellulitis, other (Crush injury) Returns Today for: persistent/worsening pain related to initial visit Symptoms Since Prior Visit: worsening pain Associated Symptoms: none Treatments Prior to Arrival: other (0) - Related Data Previous Rx's Medication Instructions Recorded Ferrous Sulfate [Feosol] 325 mg PO TID #90 tab 09/02/19 Sulfamethox-Tmp 800-160Mg [Bactrim 2 tab PO BID #28 tab 03/28/22 DS 800-160 mg] Allergies Allergy/AdvReac Type Severity Reaction Status Date / Time No Known Allergies Allergy Verified 01/21/22 14:26 Review of Systems ROS Statement: Those systems with pertinent positive or pertinent negative responses have been documented in the HPI. ROS Other: All systems not noted in ROS Statement are negative. Past Medical History Past Medical History: Cancer Additional Past Medical History / Comment(s): IRON DEFICIENCY ANEMIA HX OF BLOOD TRANSFUSION., PT STATES MASS RIGHT HIP AREA-HAD BIOPSY OF COLON MASS .,STATES BLOOD AND PUS IN URINE. History of Any Multi-Drug Resistant Organisms: None Reported Past Surgical History: Appendectomy Additional Past Surgical History / Comment(s): CT GUIDED BIOPSY OF COLON MASS. Past Anesthesia/Blood Transfusion Reactions: No Reported Reaction Past Psychological History: No Psychological Hx Reported Smoking Status: Never smoker Past Alcohol Use History: None Reported, Rare Past Drug Use History: None Reported, Marijuana - Past Family History Mother Family Medical History: No Reported History General Exam Limitations: no limitations General appearance: alert, in no apparent distress Head exam: Present: atraumatic, normocephalic, normal inspection Eye exam: Present: normal appearance, PERRL, EOMI. Absent: scleral icterus, conjunctival injection, periorbital swelling ENT exam: Present: normal exam, mucous membranes moist Neck exam: Present: normal inspection. Absent: tenderness, meningismus, lymphadenopathy Respiratory exam: Present: normal lung sounds bilaterally. Absent: respiratory distress, wheezes, rales, rhonchi, stridor Cardiovascular Exam: Present: regular rate, normal rhythm, normal heart sounds. Absent: systolic murmur, diastolic murmur, rubs, gallop, clicks GI/Abdominal exam: Present: soft, normal bowel sounds. Absent: distended, tenderness, guarding, rebound, rigid Extremities exam: Present: normal inspection, full ROM, tenderness (Right middle finger tenderness subungual hematoma), normal capillary refill. Absent: pedal edema, joint swelling, calf tenderness Back exam: Present: normal inspection Neurological exam: Present: alert, oriented X3, CN II-XII intact Psychiatric exam: Present: normal affect, normal mood Skin exam: Present: warm, dry, intact, normal color. Absent: rash Course Vital Signs 03/28/22 03:15 Temperature 97.3 F L Pulse Rate 71 Respiratory 16 Rate Blood Pressure 132/83 O2 Sat by Pulse 97 Oximetry - Reevaluation(s) Reevaluation #1: 03/28/22 04:07 Medical records reviewed Reevaluation #2: 03/28/22 04:07 Patient pain is improved Reevaluation #3: 03/28/22 04:07 Patient informed of results and questions answered Reevaluation #4: 03/28/22 04:07 Was pt. sent in by a medical professional or institution? @ -no Did you speak to anyone other than the patient for history? @ -fani Did you review nursing and triage notes? @ gree] Were old charts reviewed? @ -no Differential Diagnosis? @ -no EKG interpreted by me (3pts min.)? @ -[none] X-rays interpreted by me (1pt min.)? @ -[none] CT interpreted by me (1pt min.)? @ -[none] U/S interpreted by me (1pt. min.)? @ -[none] What testing was considered but not performed? (CT, X-rays, U/S, labs)? Why? @ no What meds were considered but not given? Why? @ -[none] Did you discuss the management of the patient with other professionals? @ -no Did you reconcile home meds? @ -[none] Was smoking cessation discussed for >3mins.? @ -[none] Was critical care preformed (if so, how long)? @ -[none] Were there social determinants of health that impacted care today? How? (Homelessness, low income, unemployed, alcoholism, drug addiction, transportation, low edu. Level, literacy, decrease access to med. care, half-way, rehab)? @ -no Was there de-escalation of care discussed even if they declined? (Discuss DNR or withdrawal of care, Hospice)? @ -no What co-morbidities impacted this encounter? (DM, HTN, Smoking, COPD, CAD, Cancer, CVA, Hep., AIDS, mental health diagnosis, sleep apnea, morbid obesity)? @ -no Was patient admitted / discharged? @ -dc Undiagnosed new problem with uncertain prognosis? @ -[none] Drug Therapy requiring intensive monitoring for toxicity (Heparin, Nitro, Insulin, Cardizem)? @ -[none] Were any procedures done? @ -[none] Diagnosis/symptom? @ -[default] Acute, or Chronic, or Acute on Chronic? @ -[default] Uncomplicated (without systemic symptoms) or Complicated (systemic symptoms)? @ -[default] Side effects of treatment? @ -[none] Exacerbation, Progression, or Severe Exacerbation] @ -[no] Poses a threat to life or bodily function? @ -[no] Procedures - Procedures Initial comment: Trephination Right middle finger nail Subungual hematoma Alcohol wipe Minor bleeding Medical Decision Making - Medical Decision Making 31 male positive for right middle finger subungual hematoma did us attempt trepanation here in the ER with minimal success patient will continue outpatient treatment with pain control can be discharged home Disposition Clinical Impression: Subungual hematoma of finger of right hand, Cellulitis of right middle finger Disposition: HOME SELF-CARE Condition: Good Instructions (If sedation given, give patient instructions): Subungual Hematoma (ED) Prescriptions: Sulfamethox-Tmp 800-160Mg [Bactrim DS 800-160 mg] 2 tab PO BID #28 tab Is patient prescribed a controlled substance at d/c from ED?: No Referrals: None,Stated [Primary Care Provider] - 1-2 days Time of Disposition: 04:10
== END 2022-03-28 04:23 | disposition home or self-care (01) ==
LOC: EC 03:13
DX: L03.011 Cellulitis of right finger (principal); F12.90 Cannabis use, unspecified, uncomplicated
CPT/HCPCS: 99283

== ENCOUNTER → 2022-06-19 | Outpatient (CLI) | payer OTHER ==
--- NOTE | 2022-06-19 14:12 | CT ---
EXAMINATION TYPE: CT ChestAbdPelvis w con DATE OF EXAM: 06/19/2022 COMPARISON: 08/06/2021 HISTORY: Follow up for colon cancer and bladder cancer. CT DLP: 749.9 mGycm CONTRAST: CT scan of the chest, abdomen and pelvis is performed with Oral Contrast and with IV Contrast, patien t injected with 100ml mL of Isovue 300. CT Chest: LUNGS: The lungs are clear and free of infiltrate or atelectasis. No pulmonary nodule or mass is det ected. No pleural effusion or CT evidence of interstitial lung disease. MEDIASTINUM: Thoracic aorta is of normal caliber. The heart is not enlarged. No evidence for media stinal mass or adenopathy. HILAR STRUCTURES: No evidence for mass. No hilar adenopathy is appreciated. OTHER: No significant abnormality. CONTRAST CT ABDOMEN AND PELVIS FINDINGS: LIVER/GB: No calcified gallstones. No space occupying hepatic lesion. Biliary tree is of normal ca liber. PANCREAS: No inflammation. No distinct mass. SPLEEN: No splenic enlargement. No lesion seen. ADRENALS: No nodule. No thickening. KIDNEYS/BLADDER: No hydronephrosis. No nephrolithiasis. No distinct renal mass. BOWEL: Again noted are changes of right hemicolectomy without evidence for recurrent or residual tumo ral mass. No obstructive changes present. Normal bowel caliber. No inflammation. GENITAL ORGANS: No gross abnormality. LYMPH NODES: No greater than 1cm abdominal or pelvic lymph nodes are appreciated. AORTA: No significant abnormality. OSSEOUS STRUCTURES: No significant abnormality is seen. OTHER: No significant additional abnormality is seen. IMPRESSION: 1. No evidence for tumor recurrence or metastatic disease to the chest, abdomen and pelvis.
== END | disposition home or self-care (01) ==
LOC: RADCTMAIN 12:01
PROVIDERS: ATTEND Internal Medicine Hematology & Oncology
DX: C18.2 Malignant neoplasm of ascending colon (principal); D50.0 Iron deficiency anemia secondary to blood loss (chronic)
CPT/HCPCS: 71260; 74177; Q9967

== ENCOUNTER 2023-03-25 07:18 | Day surgery (SDC) | payer OTHER ==
[2023-03-24 13:04] VITALS: BMI 22.8
[~2023-03-25 07:18] MED LIST changes: -LACTATED RINGERS 1,000 ML IV SCH
--- NOTE | 2023-03-25 07:39 | P.GSHP ---
History of Present Illness H&P Date: 03/25/23 CHIEF COMPLAINT: History of colon cancer HISTORY OF PRESENT ILLNESS: The patient is a 32-year-old male who presents with personal history of colon cancer status post resection. Lower endoscopy was offered for further evaluation and management. PAST MEDICAL HISTORY: Please see list. PAST SURGICAL HISTORY: Please see list. MEDICATIONS: Please see list. ALLERGIES: Please see list. SOCIAL HISTORY: No illicit drug use FAMILY HISTORY: No reports of Crohn disease or ulcerative colitis. REVIEW OF ORGAN SYSTEMS: CONSTITUTIONAL: No reports of fevers or chills. PHYSICAL EXAM: VITAL SIGNS: Stable GENERAL: Well-developed pleasant in no acute distress. HEENT: No scleral icterus. Extraocular movements grossly intact. Moist buccal mucosa. NECK: Supple without lymphadenopathy. CHEST: Unlabored respirations. Equal bilateral excursions. CARDIOVASCULAR: Regular rate and rhythm. Distal 2+ pulses. ABDOMEN: Soft, nontender, nondistended. MUSCULOSKELETAL: No clubbing, cyanosis, or edema. ASSESSMENT: 1. Colon cancer surveillance PLAN: 1. Recommend proceeding with a lower endoscopy Past Medical History Past Medical History: Blood Disorder, Cancer Additional Past Medical History / Comment(s): IRON DEFICIENCY ANEMIA HX OF BLOOD TRANSFUSION. Hx colon cancer and bladder cancer 2019, with surgery. History of Any Multi-Drug Resistant Organisms: None Reported Past Surgical History: Bowel Resection Additional Past Surgical History / Comment(s): CT GUIDED BIOPSY OF COLON MASS, bladder mass removed, colonoscopy. Past Anesthesia/Blood Transfusion Reactions: No Reported Reaction, Motion Sickness Additional Past Anesthesia/Blood Transfusion Reaction / Comment(s): Hx motion sickness, none now. Past Psychological History: No Psychological Hx Reported Smoking Status: Never smoker Past Alcohol Use History: Daily Additional Past Alcohol Use History / Comment(s): HX OF VAPING BUT NONE SINCE MAR 2019. 1 cooler daily. Past Drug Use History: Marijuana Additional Drug Use History / Comment(s): USES MARIJUANA EVERY 2-3 DAYS. Aware no alcohol or Marijuana use 24 hrs prior to procedure. - Past Family History Mother Family Medical History: No Reported History Medications and Allergies Home Medications Medication Instructions Recorded Confirmed Type Multivitamins, Thera [Multivitamin 1 tab PO DAILY 03/24/23 03/25/23 History (formulary)] Allergies Allergy/AdvReac Type Severity Reaction Status Date / Time No Known Allergies Allergy Verified 03/25/23 07:34
[2023-03-25] MEDS: LACTATED RINGERS 1,000 ML IV SCH ×2 (07:48→08:07)
[2023-03-25 07:52] VITALS: RESP 16; TEMP 97.6
[2023-03-25] MEDS ORDERED: PROPOFOL 10 MG/ML 20 ML VIAL IV ONE (08:08)
--- NOTE | 2023-03-25 09:23 | P.PCN ---
Date of Procedure: 03/25/23 Description of Procedure: PREOPERATIVE DIAGNOSIS: History of colon cancer Status post extended right hemicolectomy POSTOPERATIVE DIAGNOSIS: History of colon cancer Status post extended right hemicolectomy OPERATION: Colonoscopy to the ileocolic anastomosis SURGEON: Ester Walden MD. ANESTHESIA: MAC. INDICATIONS: The patient is a 32-year-old male who presents with colon cancer in his 20s. He presents for colon cancer surveillance. Benefits and risks were described and informed consent was obtained. DESCRIPTION OF PROCEDURE: The patient had undergone a GoLYTELY prep. The patient had been brought into the operating room and laid in the left lateral decubitus position. After adequate intravenous sedation, the rectum was examined with 2% lidocaine jelly. External hemorrhoids were encountered. The rectal tone was within normal limits. No lesions were palpated in the rectal vault. An Olympus colonoscope was advanced ileocolic anastomosis The prep was excellent. No scattered diverticulosis was encountered. No colonic polyps were found. No evidence of focal colitis was found. Retroflexion of the scope demonstrated grade 2 internal hemorrhoids without active bleeding or inflammation. The colon was desufflated. The patient had tolerated the procedure well. Withdrawal time was over 6 minutes. FINDINGS: Aronchick preparation quality scale 1 (1-5) Internal hemorrhoids, grade 2 External prolapsed hemorrhoids, grade 2 No arteriovenous malformations. No adenomatous polyps. No focal colitis. Ileocolic anastomosis present RECOMMENDATIONS: Lower endoscopy in one year2024 Plan - Discharge Summary Discharge Rx Participant: No New Discharge Prescriptions: Continue Multivitamins, Thera [Multivitamin (formulary)] 1 tab PO DAILY Discharge Medication List Multivitamins, Thera [Multivitamin (formulary)] 1 tab PO DAILY 03/24/23 [History] Follow up Appointment(s)/Referral(s): Ester Walden MD [STAFF PHYSICIAN] - 05/05/23 4:45 pm Patient Instructions/Handouts: Moderate Sedation (DC) Activity/Diet/Wound Care/Special Instructions: Repeat colonoscopy 1 year2024 Discharge Disposition: HOME SELF-CARE
[2023-03-25 09:31] VITALS: BP 115/74; PULSE 57
== END 2023-03-25 10:15 | disposition home or self-care (01) ==
LOC: ORWHC2ENDO 07:18
PROVIDERS: ATTEND Surgery Plastic and Reconstructive Surgery
DX: Z12.11 Encounter for screening for malignant neoplasm of colon (principal); K64.4 Residual hemorrhoidal skin tags; K64.1 Second degree hemorrhoids; D50.9 Iron deficiency anemia, unspecified; F10.90 Alcohol use, unspecified, uncomplicated; F12.90 Cannabis use, unspecified, uncomplicated; Z79.899 Other long term (current) drug therapy; Z85.038 Personal history of other malignant neoplasm of large intestine; Z85.51 Personal history of malignant neoplasm of bladder; Z98.890 Other specified postprocedural states
CPT/HCPCS: 45378; J2704

== ENCOUNTER → 2023-06-16 | Outpatient (CLI) | payer OTHER ==
--- NOTE | 2023-06-16 16:46 | CT ---
EXAMINATION TYPE: CT ChestAbdPelvis w con DATE OF EXAM: 06/16/2023 INDICATION: Colon Ca. COMPARISON: None CT DLP: 731.6 mGycm CONTRAST: Performed with Oral Contrast and with IV Contrast, patient injected with 100 mL of Isovue 300. TECHNIQUE: Axial images at 5 mm thick sections. Reconstructed images in the coronal plane. Delayed images through the kidneys. FINDINGS: CT CHEST: Portion of the thyroid visualized is normal. There may be a small density along the anterior right lung margins new lung base measuring 0.6 cm. Se sohail 4 image 51 this was present previously No enlarged mediastinal or hilar adenopathy is evident. The ascending aorta diameter at the level of the main pulmonary artery is 3.1 cm. The main pulmonary artery diameter at the bifurcation is 2.[address] ABDOMEN: Liver: Normal Spleen: Normal Pancreas: Normal Adrenal glands: The adrenal glands are normal. Gallbladder: Normal Kidneys: No masses are evident. No hydronephrosis is present. No cysts are present. No renal stone s are evident Aorta: Vascular calcification is within the aorta. Inferior vena cava: Normal. CT PELVIS: Loops of bowel within the abdomen and pelvis are normal. There are loops of bowel which are incom pletely distended or lack oral contrast limiting their evaluation. Appendix: Not identified. No dilated tubular structure or inflammatory changes evident. Urinary bladder: Decompressed with limited evaluation. No obvious large filling defect is identified. Genitourinary structures: Prostate is unremarkable Osseous structures: No suspicious lytic or sclerotic lesions. IMPRESSION: 1. No suspicious changes to suggest recurrent or metastatic disease.
== END | disposition home or self-care (01) ==
LOC: RADCTMAIN 14:12
PROVIDERS: ATTEND Internal Medicine Hematology & Oncology
DX: C18.2 Malignant neoplasm of ascending colon (principal); D50.0 Iron deficiency anemia secondary to blood loss (chronic)
CPT/HCPCS: 71260; 74177; Q9967